=== PATIENT | male | born 1965 | race Caucasian/White ===

== ENCOUNTER 2023-04-08 06:52 | Outpatient (OUT) | payer BC, SELFPAY ==
[2023-04-08 07:19] LABS: Basophils Percent Auto 0.5 % (0.2-2.0); Eosinophils Absolute Auto 0.1 10^3/uL (0.0-0.7); Eosinophils Percent Auto 1.1 % (0.9-7.0); Hematocrit 42.5 % (42.0-54.0); Hemoglobin 13.6 g/dL (14.0-18.0); Immature Granulocytes Abs Auto 0.02 10^3/uL (0.00-0.03); Immature Granulocytes Pct Auto 0.4 % (0.0-0.5); Lymphocytes Absolute Auto 1.4 10^3/uL (1.2-3.8); Lymphocytes Percent Auto 25.4 % (20.5-60.0); Mean Corpuscular Hemoglobin 30.7 pg (25.9-34.0); Mean Corpuscular Volume 95.9 fL (80.0-94.0); Mean Platelet Volume 8.8 fL (9.5-13.5); Monocytes Absolute Auto 0.6 10^3/uL (0.3-0.8); Monocytes Percent Auto 11.4 % (1.7-12.0); Neutrophils Absolute Auto 3.4 10^3/uL (1.4-6.5); Neutrophils Percent Auto 61.2 % (43.0-75.0); Platelet Count 255 10^3/uL (150-450); Red Blood Count 4.43 10^6/uL (4.70-6.10); Red Cell Distribution Width 12.7 % (11.0-15.0); White Blood Count 5.6 10^3/uL (4.0-11.0)
[2023-04-08 07:39] LABS: Estimated Average Glucose 123 mg/dL; Glycohemoglobin A1C 5.9 % (4.5-6.2)
[2023-04-08 07:48] LABS: Alanine Aminotransferase 31 U/L (16-63); Albumin Globulin Ratio 1.1; Albumin Level 3.6 g/dL (3.4-5.0); Alkaline Phosphatase 62 U/L (46-116); Anion Gap 11.5; Aspartate Amino Transferase 11 U/L (15-37); BUN Creatinine Ratio 21.6; Bilirubin Total 0.6 mg/dL (0.2-1.0); Calcium 8.5 mg/dL (8.5-10.1); Carbon Dioxide 30.6 mmol/L (21.0-32.0); Chloride 102 mmol/L (98-107); Chol HDL Ratio 4.1; Cholesterol 212 mg/dL (<=200); Estimated GFR (African America >60 (>=60); Estimated GFR (Non-African Ame >60 (>=60); Free T3 2.11 pg/mL (2.18-3.98); Globulin 3.3 g/dL; Glucose 111 mg/dL (74-106); HDL Cholesterol 52 mg/dL (40-60); Potassium 4.1 mmol/L (3.5-5.1); Sodium 140 mmol/L (136-145); Thyroid Stimulating Hormone 1.459 uIU/mL (0.358-3.740); Total Protein 6.9 g/dL (6.4-8.2); Triglycerides 142 mg/dL (<=150); VLDL CHOLESTEROL 28.4 mg/dL
[2023-04-08 08:13] LABS: Prostate Specific Antigen Scrn 1.05 ng/mL (<=4.00)
--- OUTSIDE RECORDS SUMMARY | 2023-04-21 02:19 | XMS_ITS | CCD ---
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 [place] [id number] [place] CO2 [Moles/Vol] 28 mmol/L Normal 22-30 [facility] Comment on above: Order Comment: Speci men Type: BLOOD SPECIMENOrdering Facility: [facility] Address: [address] [place], [place] [address] Performed By: #### 2 4320-2, ####[facility] [id number] [place] [address] [place] Creatinine [Mass/Vol] 0.98 mg/dL Normal 0.73-1.22 [facility] Comment on above: Order Comment: Agatha graham Type: BLOOD SPECIMENOrdering Facility: [facility] Address: [address] [address] Performed By: #### 2 432-2, ####[facility] LABIA [id number] [place] [address] [place] ESTIMATED GLOMERULAR FILTRATION RATE 89 mL/min/1.73m??? Normal >=60 [facility] Comment on above: Order Comment: Agatha graham Type: BLOOD SPECIMENOrdering Facility: [facility] Address: [address] [place] [address] Result Comment: Jolie mated Glomerular Filtration Rate (eGFR) is calculated using the 2020 CKD-EPI creatinine equation. This equation utilizes serum creatinine, sex, and age as parameters. The creatinine assay has traceable calibration to isotope dilution-mass spectrometry. Refer to KDIGO guidelines for clinical interpretation. In patients with unstable renal function, e.g. those with acute kidney injury, the eGFR may not accurately reflect actual GFR. Performed By: #### 2 4321-2, ####[facility] LABIA [id number] [place] [address] [place] Glucose [Mass/Vol] 113 mg/dL High 74-99 [facility] Comment on above: Order Comment: Agatha graham Type: BLOOD SPECIMENOrdering Facility: [facility] Address: [address] Result Comment: The [place] Diabetes Association (ADA) provides guidance for cutoff values for fasting glucose and random glucose. The ADA defines fasting as no caloric intake for at least 8 hours. Fasting plasma glucose results between 100 to 125 mg/dL indicate increased risk for diabetes (prediabetes). Fasting plasma glucose results greater than or equal to 126 mg/dL meet the criteria for diagnosis of diabetes. In the absence of unequivocal hyperglycemia, results should be confirmed by repeat testing. In a patient with classic symptoms of hyperglycemia or hyperglycemic crisis, random plasma glucose results greater than or equal to 200 mg/dL meet the criteria for diagnosis of diabetes. Reference: Standards of Medical Care in Diabetes 2016, [place] [employer] Association. Diabetes Care. 2016.39(Suppl 1). Performed By: #### 2 4320-06, ####[facility] [id number] [place] [address] [place] Potassium [Moles/Vol] 4.4 mmol/L Normal 3.7-5.1 [facility] Comment on above: Order Comment: Speci men Type: BLOOD SPECIMENOrdering Facility: [facility] Address: [address] [place] [address] Performed By: #### 2 4320-06, ####[facility] [id number] [place] [address] [place] Sodium [Moles/Vol] 138 mmol/L Normal 136-144 [facility] Comment on above: Order Comment: Speci men Type: BLOOD SPECIMENOrdering Facility: [facility] Address: [address] [place], [place] [address] Performed By: #### 2 4320-06, ####[facility] [id number] [place] [address] [place] Urea nitrogen [Mass/Vol] 15 mg/dL Normal 9-24 [facility] Comment on above: Order Comment: Speci men Type: BLOOD SPECIMENOrdering Facility: [facility] Address: [address] [place], [place] [address] Performed By: #### 2 4320-06, ####[facility] [id number] [place] [id number] [place] CNDSon 03-17-2022 CNDS HNO ID: [id number] Author: Oneida Bradley MD Service: Cardiovascular Medicine Author Type: Physician Type: Discharge Summary Filed: 03/25/2022 8:50 AM Note Text: Department of Cardiovascular Medicine Discharge Summary (Template ID [id number]) PATIENT NAME: Clayton Parekh ADMISSION DATE: 03/12/2022 DISCHARGE DATE: 03/17/2022 Attending Physician: No att. providers found Code Status: Not on file Primary Service: Hvi Electrophysiology Admission Diagnosis: Atrial flutter Discharge Diagnosis: Atrial flutter Secondary Diagnoses: Patient Active Hospital Problem List: Atrial flutter (HCC) (03/12/2022) Lymphedema (01/12/2020) Chronic venous insufficiency (01/12/2020) Morbid obesity with BMI of 40.0-44.9, adult (HCC) (01/12/2020) Acquired hypothyroidism (01/12/2020) Persistent atrial fibrillation (HCC) (03/12/2022) Diabetes mellitus type 2, controlled, without complications (HCC) (03/12/2022) Personal history of DVT (deep vein thrombosis) (03/12/2022) Restless legs syndrome (RLS) (03/12/2022) HTN (hypertension) (03/12/2022) Reason for Hospitalization: Atrial flutter Hospital Course: The patient was directly admitted from Dr. Rica Erwin's clinic for new onset atrial flutter with rapid ventricular response. Initial EKG showed atrial flutter with ventricular rates 138 bpm. CXR revealed edema vs inflammation. Patient was currently on a 10-day course of augmentin for cough and suspected pulmonary infection. He was given IV diuretics with improved respiratory symptoms. He remained in atrial flutter while awaiting CLAUS/DCCV. On 03/16/22, he underwent CLAUS which showed no left atrial appendage thrombus. He then underwent successful DCCV with jewish of sinus rhythm with rates 80-100s. He was transitioned from IV to oral lasix for a short course given continued signs of volume overload on exam. He was instructed to get a BMP AND magnesium level locally within 1-2 weeks. A follow up appointment with Dr. Bradley in EP clinic was requested for 4-8 weeks. Assessment: BP 117/80 Pulse 87 Temp 36.9 ?C (98.4 ?F) (Oral) Resp 18 Ht 177.8 cm (5' 10 ) Wt 132 kg (291 lb) SpO2 95% BMI 41.75 kg/m? General Appearance: Well developed, no acute distress HEENT: PERRLA, good dentition Lungs: Unlabored, mild end-expiratory wheezes in bilateral bases Heart: Regular rate and rhythm, no murmurs Vascular: Extremities well perfused, stable BLE lymphedema Abdomen: Soft, non-tender, non-distended, normoactive bowel sounds Skin: Warm and dry, no rash Musculoskeletal: No deformities Neurologic/Psychiatric: Alert and oriented, appropriate affect, no gross focal neurologic deficits Consults: None Major Procedure or Operation: None Other Procedures, Testing AND Radiology: Chest xray 03/12/22: RESULT: - Lines, tubes, and devices: None. - Lungs and pleura: Lungs are hypoinflated with partial atelectasis along the medial bases. Prominence of the lung markings bilaterally could be due to crowded vessels given the low lung volume. Underlying mild interstitial edema or inflammation cannot be entirely excluded. An azygos lobe is compatible with normal variation. There is mild anterior eventration of right hemidiaphragm. No pleural effusion or pneumothorax. - Cardiomediastinal silhouette: Heart is borderline in size. Thoracic aorta is mildly tortuous. - Bones and soft tissues: Degenerative changes are seen in the spine. CLAUS 03/16/22: CONCLUSIONS: - Exam indication: Sustained atrial fibrillation - The left ventricle is normal in size. Left ventricular systolic function is normal. EF = 55 ? 5% (visual est.) - The right ventricle is normal in size. Right ventricular systolic function is normal. - The left atrial cavity is moderately dilated. - No LA thrombus identified. - The visualized aorta is dilated with a maximal dimension of 4.1 cm. - Small nonmobile calcification (0.5 x 0.6 cm) of RCC/NCC commisure likely consistent with degenerative valve disease/calcification. - There is no patent foramen ovale as detected by agitated saline contrast. - Exam was compared with the prior echocardiographic exam performed on 02/05/2020, stable aortic measurements, overall similar findings PROCEDURES: Cardioversion 03/16/22: Summary Findings: The cardioversion was successful. 1. The presenting arrhythmia was atrial flutter. 2. Sinus rhythm and atrial tachycardia with a ventricular rate of 89 beats per minute was observed after the procedure. There were no intraprocedural complications or adverse events. Patient Condition at Discharge: Improved Disposition: Home with Self Care Information Provided to the Patient: Patient given copy of After Visit Summary which included activity instructions, diet instructions, wound care instructions, medication instructions and follow up appointment. ALLERGIES No Known Allergies Discharge Medications: Discharge (more content not included)... Normal [facility] Magnesium SerPl-mCncon 03-17 Magnesium [Mass/Vol] 2.3 mg/dL Normal 1.7-2.3 [facility] Comment on above: Order Comment: Speci men Type: BLOOD SPECIMENOrdering Facility: [facility] Address: [address] [place] [id number] Performed By: #### 2 4321-2, 85095-6 ####[facility] [id number] [address] [place] ANES POSTPROC EVALon 022 ANES POSTPROC EVAL HNO ID: [id number] Author: Zohra Maya MD Service: ? Author Type: Anesthesiologist Type: Anesthesia Postprocedure Evaluation Filed: 03/16/2022 4:48 PM Note Text: POST ANESTHESIA EVALUATION NOTE : 1965 Procedure Summary Date: 03/16/22 Room / Location: [address] Anesthesia Start: 1431 Anesthesia Stop: 1524 Procedure: CARDIOVERSION EXTERNAL ELECTIVE Diagnosis: Persistent atrial fibrillation (HCC) (Persistent atrial fibrillation (HCC) [I48.19]) Surgeons: Oneida Bradley MD Responsible Provider: Zohra Maya MD Anesthesia Type: general ASA Status: 3 Anesthesia Type: general Airway Type: ETT Last Vitals Vitals Value Taken Time BP 115/66 03/16/22 1600 Temp 37 03/16/22 1648 Pulse 83 03/16/22 1600 Resp 16 03/16/22 1600 SpO2 98 % 03/16/22 1600 Post Anesthesia Patient Status Patient Evaluation: bedside. Anticipated Disposition: inpatient floor planned admission. Neurological Status: aware and responsive. Pulmonary Status: breathing comfortably on supplemental oxygen Airway Control: returned to baseline unsupported. Cardiovascular Status: stable. Pain Management: clinically adequate Postoperative Hydration: acceptable. Intraoperative Events: no significant anesthesia events Post Operative Nausea/Vomiting Status: no significant post operative nausea or vomiting Recommendation: continue current plan of care. Anesthesia Observations No Documentation SIGNATURE: Zohra Maya MD PATIENT NAME: Clayton Parekh DATE: March 16, 2022 TIME: 4:48 PM CSN: [id number] Normal [facility] ANES PRE-OPon 03-16-2022 ANES PRE-OP HNO ID: [id number] Author: Zohra Maya MD Service: ? Author Type: Anesthesiologist Type: Anesthesia Preprocedure Evaluation Filed: 03/16/2022 3:25 PM Note Text: ANESTHESIOLOGY DAY OF SURGERY NOTE : 1965 Procedure Information Anesthesia Start Date/Time: 03/16/221430 Procedure: CARDIOVERSION EXTERNAL ELECTIVE Location: [address] EP LAB Surgeons: Oneida Bradley MD Estimated body mass index is 41.9 kg/m? as calculated from the following: Height as of this encounter: 177.8 cm (5' 10 ). Weight as of this encounter: 132.5 kg (292 lb). Most recent hematocrit and potassium results: Hematocrit 43.6 03/16/2022 Potassium 4.3 03/16/2022 Relevant Problems CARDIO (+) Atrial flutter (HCC) (+) Chronic venous insufficiency (+) HTN (hypertension) (+) Persistent atrial fibrillation (HCC) ENDO (+) Acquired hypothyroidism (+) Diabetes mellitus type 2, controlled, without complications (HCC) NEURO-PSYCH (+) Personal history of DVT (deep vein thrombosis) I - PHYSICAL EVALUATION AIRWAY Patient intubated: No. Tracheostomy tube not present Mallampati: III. TM distance: >3 FB. Neck ROM: full ROM without neurological symptoms. Mouth opening: adequate. Short neck: no. Thick neck: no Fink present: no DENTAL Dental findings: teeth intact. II - ANESTHESIA PLAN ASA Score: 3 Anesthetic Plan: general Airway type: ETT NPO Status: adequate Beta Irlanda Monitoring Plan Monitoring plan: standard ASA. Post Procedure Analgesic Plan Postoperative analgesic plan: multimodal analgesia and per surgical service. Informed Consent Anesthetic risks, benefits, alternatives, personnel and consent discussed: yes. Patient / Responsible Alliance Party agrees to proceed: yes Patient / Surrogate agrees to blood products: Yes Potential Anesthesia issues that may suggest increased risk of complications or contraindication to planned procedure: none. Vitals Value Taken Time BP 114/64 03/16/22 1404 Pulse 133 03/16/22 1404 Resp 16 03/16/22 1404 Temp SpO2 95 % 03/16/22 1404 Facility-Administered Medications as of 03/16/2022 Medication Dose Route Frequency - [COMPLETED] furosemide 20 mg injection (LASIX) 20 mg INTRAVENOUS ONCE - albuterol 2.5 mg /3 mL (0.083 %) 2.5 mg (PROVENTIL) 2.5 mg INHALATION TID - [COMPLETED] NaCl 0.9% iv infusion INTRAVENOUS X (OR/PROCEDURE) CONTINUOUS - [COMPLETED] furosemide 20 mg injection (LASIX) 20 mg INTRAVENOUS ONCE - [COMPLETED] furosemide 20 mg injection (LASIX) 20 mg INTRAVENOUS ONCE - acetaminophen 650 mg tab(s) (TYLENOL) 650 mg ORAL q 4 H PRN - docusate sodium 100 mg cap(s) (COLACE) 100 mg ORAL BID PRN - NaCl 0.9% iv flush bag 20 mL INTRAVENOUS PRN - sodium chloride 0.9 % (flush) 3-5 mL (BD POSIFLUSH) 3-5 mL INTRAVENOUS q 12 H - dilTIAZem CD 300 mg cap(s) (CARDIZEM CD, CARTIA XT) 300 mg ORAL DAILY - [] sodium chloride 0.9 % (flush) 2-10 mL (BD POSIFLUSH) 2-10 mL INTRAVENOUS ONCE - apixaban 5 mg tab(s) (ELIQUIS) 5 mg ORAL BID - amoxicillin-clavulanic acid 875 mg tab(s) (AUGMENTIN) 875 mg ORAL BID - levothyroxine 100 mcg tab(s) (SYNTHROID) 100 mcg ORAL DAILY - ascorbic acid (vitamin C) 1,000 mg tab(s) (VITAMIN C) 1,000 mg ORAL DAILY - pramipexole 1 mg tab(s) (MIRAPEX) 1 mg ORAL DAILY - benzonatate 100 mg cap(s) (TESSALON PERLE) 100 mg ORAL TID Outpatient Medications as of 03/16/2022 Medication Sig - cephALEXin (KEFLEX) 500 mg capsule Take 500 mg by mouth four times daily. - amoxicillin-clavulanic acid (AUGMENTIN) 875-125 mg per tablet Take 1 tablet by mouth twice daily. - levothyroxine (SYNTHROID) 100 mcg tablet Take 100 mcg by mouth once daily. - pramipexole (MIRAPEX) 1 mg tablet Take 1 mg by mouth daily at bedtime. - MAGNESIUM ORAL Take 500 mg by mouth. - perflutren lipid microspheres (DEFINITY) 1.1 mg/mL injection (to be provided with echo procedure) Inject 1.3 mL intravenously as needed for up to 1 dose. Instructions Administration Instructions: If no IV access, insert saline lock prior to administering contrast. Discontinue saline lock post exam. If patient has central line or IVAD, may access for administration according to line specific nursing protocol. Once exam is complete, flush line and de-access per line specific nursing protocol. Diluted IV Bolus: Dilute 1.3 ml of Definity with 8.7 ml of preservative-free saline I have interviewed and examined the patient. I have reviewed the medical record and/or the pre-anesthesia evaluation, pertinent labs, and test results. This contains updated information obtained within 48 hours of Surgery/Procedure. SIGNATURE: Zohra Maya MD PATIENT NAME: Clayton Parekh DATE: March 16, 2022 TIME: 3:25 PM CSN: [id number] Normal [facility] Basic metabolic 2000 panelon 03-16-2022 Anion gap [Moles/Vol] 13 mmol/L Normal 9-18 [facility] Comment on above: Order Comment: Speci men Type: BLOOD SPECIMENOrdering Facility: [facility] Address: [address] [place], [place] [phone] Performed By: #### 2 432-, ####[facility]CL[facility] [id number] [place] [address] [place] Calcium [Mass/Vol] 9.5 mg/dL Normal 8.5-10.2 [facility] Comment on above: Order Comment: Speci men Type: BLOOD SPECIMENOrdering Facility: [facility] Address: [address] [place], [place] [phone] Performed By: #### 2 4321-, ####[facility]CL[facility] [id number] [place] [address] [place] Chloride [Moles/Vol] 100 mmol/L Normal 97-105 [facility] Comment on above: Order Comment: Speci men Type: BLOOD SPECIMENOrdering Facility: [facility] Address: [address] [place] [address] Performed By: #### 2 4321-2, ####[facility] LABIA [id number] [place] [address] [place] CO2 [Moles/Vol] 24 mmol/L Normal 22-30 [facility] Comment on above: Order Comment: Speci men Type: BLOOD SPECIMENOrdering Facility: [facility] Address: [address] [place] [address] Performed By: #### 2 4321-2, ####[facility] LABIA [id number] [address] OF [facility] Creatinine [Mass/Vol] 0.96 mg/dL Normal 0.73-1.22 [facility] Comment on above: Order Comment: Speci men Type: BLOOD SPECIMENOrdering Facility: [facility] Address: [address] [place] [address] Performed By: #### 2 4321-2, ####[facility] LABIA [id number] [place] [address] [place] [facility] ESTIMATED GLOMERULAR FILTRATION RATE 92 mL/min/1.73m??? Normal >=60 [facility] Comment on above: Order Comment: Speci men Type: BLOOD SPECIMENOrdering Facility: [facility] Address: [address] [place] [address] Result Comment: Jolie mated Glomerular Filtration Rate (eGFR) is calculated using the 2020 CKD-EPI creatinine equation. This equation utilizes serum creatinine, sex, and age as parameters. The creatinine assay has traceable calibration to isotope dilution-mass spectrometry. Refer to KDIGO guidelines for clinical interpretation. In patients with unstable renal function, e.g. those with acute kidney injury, the eGFR may not accurately reflect actual GFR. Performed By: #### 2 4320-06, ####[facility]CL[facility] [id number] [address] [address] [place] Glucose [Mass/Vol] 109 mg/dL High 74-99 [facility] Comment on above: Order Comment: Agatha men Type: BLOOD SPECIMENOrdering Facility: [facility] Address: [address] [place] [id number] Result Comment: The [place] Diabetes Association (ADA) provides guidance for cutoff values for fasting glucose and random glucose. The ADA defines fasting as no caloric intake for at least 8 hours. Fasting plasma glucose results between 100 to 125 mg/dL indicate increased risk for diabetes (prediabetes). Fasting plasma glucose results greater than or equal to 126 mg/dL meet the criteria for diagnosis of diabetes. In the absence of unequivocal hyperglycemia, results should be confirmed by repeat testing. In a patient with classic symptoms of hyperglycemia or hyperglycemic crisis, random plasma glucose results greater than or equal to 200 mg/dL meet the criteria for diagnosis of diabetes. Reference: Standards of Medical Care in Diabetes 2016, [place] [employer]. Diabetes Care. 2016.39(Suppl 1). Performed By: #### 2 4320-06, ####[facility] LABIA [id number] [place] [address] [place] Potassium [Moles/Vol] 4.3 mmol/L Normal 3.7-5.1 [facility] Comment on above: Order Comment: Agatha graham Type: BLOOD SPECIMENOrdering Facility: [facility] Address: [address] [place] [address] Performed By: #### 2 4320-06, ####[facility] LABIA [id number] [address] [address] [place] Sodium [Moles/Vol] 137 mmol/L Normal 136-144 [facility] Comment on above: Order Comment: Agatha graham Type: BLOOD SPECIMENOrdering Facility: [facility] Address: [address] Performed By: #### 2 4321-2, 66414-5 ####[facility] LABIA [id number] [place] [address] [place] Urea nitrogen [Mass/Vol] 14 mg/dL Normal 9-24 [facility] Comment on above: Order Comment: Speci men Type: BLOOD SPECIMENOrdering Facility: [facility] Address: [address] [place], [place] [address] Performed By: #### 2 4321-2, ####[facility] LABIA [id number] [place] [address] [place] CBC panel Auto (Bld)on 03-16 Erythrocyte distribution wid th (RBC) [Ratio] 12.8 % Normal 11.5-15.0 [facility] Comment on above: Order Comment: Speci men Type: BLOOD SPECIMENOrdering Facility: [facility] Address: [address] Performed By: #### 9 4500-6 #### [facility] CLIA [id number] [address] [place] [address] [place] Hematocrit (Bld) [Volume fraction] 43.6 % Normal 3 9.0-51.0 [facility] Comment on above: Order Comment: Speci men Type: BLOOD SPECIMENOrdering Facility: [facility] Address: [address] Performed By: #### 9 4500-6 #### [facility] CLIA [id number] [address] [place] [address] [place] Hemoglobin (Bld) [Mass/Vol] 14.5 g/dL Normal 13.0-17. 0 [facility] Comment on above: Order Comment: Speci men Type: BLOOD SPECIMENOrdering Facility: [facility] Address: [address] [place], [place] [address] Performed By: #### 9 4500-6 #### [facility] CLIA [id number] [address] MCH (RBC) [Entitic mass] 29.4 pg Normal 26.0-34.0 [facility] Comment on above: Order Comment: Speci men Type: BLOOD SPECIMENOrdering Facility: [facility] Address: [address] [place] [address] Performed By: #### 9 4500-6 #### [facility] CLIA [id number] [address] [place] MCHC (RBC) [Mass/Vol] 33.3 g/dL Normal 30.5-36.0 [facility] Comment on above: Order Comment: Speci men Type: BLOOD SPECIMENOrdering Facility: [facility] Address: [address] [place], [place] [address] Performed By: #### 9 4500-6 #### [facility] CLIA [id number] [address] [place] [address] [place] MCV (RBC) [Entitic vol] 88.4 fL Normal 80.0-100.0 [facility] Comment on above: Order Comment: Speci men Type: BLOOD SPECIMENOrdering Facility: [facility] Address: [address] [place], [place] [phone] Performed By: #### 9 4500-6 #### [facility] CLIA [id number] [address] [place] Nucleated RBC (Bld) [#/Vol] 10*3/uL Normal <0.01 [facility] Comment on above: Order Comment: Speci men Type: BLOOD SPECIMENOrdering Facility: [facility] Address: [address] [place] [address] Performed By: #### 9 4500-6 #### [facility] CLIA [id number] [address] [place] [address] [place] Platelet mean volume (Bld) [ Entitic vol] 9.2 fL Normal 9.0-12.7 [facility] Comment on above: Order Comment: Speci men Type: BLOOD SPECIMENOrdering Facility: [facility] Address: [address] [place], [place] [address] Performed By: #### 9 4500-6 #### [facility] CLIA [id number] [address] [place] [address] [place] Platelets (Bld) [#/Vol] 257 10*3/uL Normal 150-400 [facility] Comment on above: Order Comment: Speci men Type: BLOOD SPECIMENOrdering Facility: [facility] Address: [address] [place], [place] [address] Performed By: #### 9 4500-6 #### [facility] CLIA [id number] [address] [place] [address] [place] RBC (Bld) [#/Vol] 4.93 10*6/uL Normal 4.20-6.00 [facility] Comment on above: Order Comment: Speci men Type: BLOOD SPECIMENOrdering Facility: [facility] Address: [address] [place], [place] [address] Performed By: #### 9 4500-6 #### [facility] CLIA [id number] [address] [place] [address] [place] WBC (Bld) [#/Vol] 6.13 10*3/uL Normal 3.70-11.00 [facility] Comment on above: Order Comment: Speci men Type: BLOOD SPECIMENOrdering Facility: [facility] Address: [address] [place], [place] [address] Performed By: #### 9 4500-6 #### [facility] CLIA [id number] [address] [place] [address] [place] CNOVon 03-16-2022 CNOV Office Visit (CAFLMN ) CLAYTON PAREKH ([id number]) 1965 M Date Time Provider Department 03/16/22 9:00 AM IP TRANSESOPHAGEAL ECHO CAFN During your visit today, we recorded the following information about you: Allergies As of Date: 03/16/2022 (No Known Allergies) Date Reviewed: 03/16/2022 Reviewed by: Allison Landaverde RN - Fully Assessed Primary Visit Diagnosis:Persistent atrial fibrillation (HCC) [I48.19] Prescriptions as of 03/17/2022 - furosemide (LASIX) 20 mg tablet Take 1 tablet by mouth once daily for 14 days. - apixaban (ELIQUIS) 5 mg tab(s) Take 5 mg by mouth twice daily. - ascorbic acid, vitamin C, (VITAMIN C) 500 mg tablet Take 1,000 mg by mouth once daily. - dilTIAZem CD (CARDIZEM CD, CARTIA XT) 300 mg 24 hr capsule Take 300 mg by mouth once daily. - amoxicillin-clavulanic acid (AUGMENTIN) 875-125 mg per tablet Take 1 tablet by mouth twice daily. - levothyroxine (SYNTHROID) 100 mcg tablet Take 100 mcg by mouth once daily. - pramipexole (MIRAPEX) 1 mg tablet Take 1 mg by mouth daily at bedtime. - perflutren lipid microspheres (DEFINITY) 1.1 mg/mL injection (to be provided with echo procedure) Inject 1.3 mL intravenously as needed for up to 1 dose. Instructions Administration Instructions: If no IV access, insert saline lock prior to administering contrast. Discontinue saline lock post exam. If patient has central line or IVAD, may access for administration according to line specific nursing protocol. Once exam is complete, flush line and de-access per line specific nursing protocol. Diluted IV Bolus: Dilute 1.3 ml of Definity with 8.7 ml of preservative-free saline Facility-Administered Medications as of 03/17/2022 - albuterol 2.5 mg /3 mL (0.083 %) 2.5 mg (PROVENTIL) - acetaminophen 650 mg tab(s) (TYLENOL) - docusate sodium 100 mg cap(s) (COLACE) - NaCl 0.9% iv flush bag - sodium chloride 0.9 % (flush) 3-5 mL (BD POSIFLUSH) - dilTIAZem CD 300 mg cap(s) (CARDIZEM CD, CARTIA XT) - apixaban 5 mg tab(s) (ELIQUIS) - amoxicillin-clavulanic acid 875 mg tab(s) (AUGMENTIN) - levothyroxine 100 mcg tab(s) (SYNTHROID) - ascorbic acid (vitamin C) 1,000 mg tab(s) (VITAMIN C) - pramipexole 1 mg tab(s) (MIRAPEX) - benzonatate 100 mg cap(s) (TESSALON PERLE) Problem List As Of Date 03/16/2022 Noted Resolved Lymphedema [I89.0] 01/12/2020 Chronic venous insufficiency [I87.2] 01/12/2020 Dependent edema [R60.9] 01/12/2020 Weight gain [R63.5] 01/12/2020 Morbid obesity with BMI of 40.0-44.9, adult (HC*01/12/2020 Acquired hypothyroidism [E03.9] 01/12/2020 Persistent atrial fibrillation (HCC) [I48.19] 03/12/2022 Diabetes mellitus type 2, controlled, without c*03/12/2022 Personal history of DVT (deep vein thrombosis) *03/12/2022 Restless legs syndrome (RLS) [G25.81] 03/12/2022 Atrial flutter (HCC) [I48.92] 03/12/2022 HTN (hypertension) [I10] 03/12/2022 Encounter Status:Closed by ELLY MEHTA on 03/17/22 Normal [facility] [id number] 03-16-2022 ECG01 Ventricular Rate : 8 5 BPM Atrial Rate : 85 BPM P-R Interval : 174 ms QRS Duration : 94 ms Q-T Interval : 384 ms QTC Calculation(Bazett) : 456 ms Calculated P [place] : 53 degrees Calculated R [place] : -44 degrees Calculated [place] : 78 degrees SINUS RHYTHM WITH MARKED SINUS ARRHYTHMIA WITH PREMATURE ATRIAL COMPLEXES POSSIBLE LEFT ATRIAL ENLARGEMENT LEFT AXIS DEVIATION ABNORMAL ECG Confirmed by STEPHENIE AZUL MD ([id number]) on 04/02/2022 9:19:10 PM NAME : CLAYTON PAREKH PID : [id number] : 1965 Gender : Male Race : ORD : Procedure Date : Mar 16 2022 16:30:18 Edit Date : Apr 02 2022 21:19:10 Diagnosis: SINUS RHYTHM WITH MARKED SINUS ARRHYTHMIA WITH PREMATURE ATRIAL COMPLEXES POSSIBLE LEFT ATRIAL ENLARGEMENT LEFT AXIS DEVIATION ABNORMAL ECG Confirmed by STEPHENIE AZUL MD ([id number]) on 04/02/2022 9:19:10 PM Test Reason : Location : 473 : J73NS 21 Overread By : STEPHENIE AZUL MD Edited By : STEPHENIE AZUL MD Referred By : , Acquired by : [id number], Normal [facility] C leveland ECG01 Ventricular Rate : 8 4 BPM Atrial Rate : 84 BPM P-R Interval : 176 ms QRS Duration : 100 ms Q-T Interval : 392 ms QTC Calculation(Bazett) : 463 ms Calculated P [place] : 57 degrees Calculated R [place] : -49 degrees Calculated T [place] : 77 degrees SINUS RHYTHM WITH PREMATURE ATRIAL COMPLEXES LEFT ANTERIOR FASCICULAR BLOCK ABNORMAL ECG Confirmed by STEPHENIE AZUL MD ([id number]) on 04/02/2022 9:18:02 PM NAME : CLAYTON PAREKH PID : [id number] : 1965 Gender : Male Race : ORD : Procedure Date : Mar 16 2022 15:46:42 Edit Date : Apr 02 2022 21:18:02 Diagnosis: SINUS RHYTHM WITH PREMATURE ATRIAL COMPLEXES LEFT ANTERIOR FASCICULAR BLOCK ABNORMAL ECG Confirmed by STEPHENIE AZUL MD ([id number]) on 04/02/2022 9:18:02 PM Test Reason : Location : 23 : J21NS J21NS Overread By : STEPHENIE AZUL MD Edited By : STEPHENIE AZUL MD Referred By : , Acquired by : [id number], Normal [facility] C leveland ECG01 Ventricular Rate : 1 37 BPM Atrial Rate : 274 BPM QRS Duration : 88 ms Q-T Interval : 282 ms QTC Calculation(Bazett) : 425 ms Calculated P [place] : -95 degrees Calculated R [place] : -59 degrees Calculated T [place] : 68 degrees ATRIAL FLUTTER WITH 2:1 A-V CONDUCTION LEFT ANTERIOR FASCICULAR BLOCK ST & LATERAL T WAVE ABNORMALITY ABNORMAL ECG Confirmed by STEPHENIE AZUL MD ([id number]) on 04/02/2022 9:16:53 PM NAME : CLAYTON PAREKH PID : [id number] : 1965 Gender : Male Race : ORD : Procedure Date : Mar 16 2022 11:32:32 Edit Date : Apr 02 2022 21:16:53 Diagnosis: ATRIAL FLUTTER WITH 2:1 A-V CONDUCTION LEFT ANTERIOR FASCICULAR BLOCK ST & LATERAL T WAVE ABNORMALITY ABNORMAL ECG Confirmed by STEPHENIE AZUL MD ([id number]) on 04/02/2022 9:16:53 PM Test Reason : Location : 473 : J73NS 21 Overread By : STEPHENIE AZUL MD Edited By : STEPHENIE AZUL MD Referred By : , Acquired by : [id number], Normal [facility] E[facility] TRANSESOPHAGEALon 03-16 ECHO TRANSESOPHAGEAL Echocardiography Report: Transesophageal Echo [facility] J1-5 Date of service: 03/16/2022 2:03:56 PM [facility]ICE [facility]ER Ordering physician: ERIKA MORRISON Indication: Sustained atrial fibrillation Technologist: fellow Fellow: Jewel Barragan MD Interpreting physician: Minoo Chapa MD PATIENT: Name: MR. CLAYTON PAREKH : 1965 Age: 56 years Gender: M Pre Post Heart rate 131 bpm 120 bpm Blood pressure 110/80 mmHg 100/70 mmHg Color Doppler was utilized to interrogate the cardiac valves assessed and spectral Doppler was utilized to determine the flow velocities and pressure gradients reported in this exam. Exam performed on intubated patient under general [id number] min. Patient tolerated procedure well; no complications. (Stop Time: 2:57) No specimens collected. No blood loss. The interpreting physician was present for and actively participated in the CLAUS procedure. MEASUREMENTS: Value Normal Max aortic dimension 4.1 cm Ao < 3.8 Ejection Fraction 55 % (visual est.) EF > 52 FINDINGS: LEFT VENTRICLE The left ventricle is normal in size. Left ventricular systolic function is normal. Wall Motion: All scored segments are normal. RIGHT VENTRICLE The right ventricle is normal in size. Right ventricular systolic function is normal. LEFT ATRIUM The left atrial cavity is moderately dilated. There is continuous spontaneous echo contrast noted in the left atrium. The left atrial appendage is not multilobed. The peak emptying velocity from the left atrial appendage is 40.0 cm/s. There is no left atrial appendage thrombus. Pulmonary Veins: The pulmonary venous pattern showed blunted systolic flow. MITRAL VALVE [place] mitral valve. There is no mitral stenosis. There is mild (1+) mitral valve regurgitation. 3D echocardiographic multi-planar reconstruction of the mitral valve was performed to assess anatomy and function. TRICUSPID VALVE [place] tricuspid valve. There is trace tricuspid valve regurgitation. AORTIC VALVE There is no aortic valve regurgitation. Tricuspid aortic valve. PULMONIC VALVE There is trace pulmonic valve regurgitation. AORTA The visualized aorta is dilated. Measurements - Sinus: 4.1 cm. Sinotubular junction 3.2 cm. Mid ascending aorta 4.0 cm. There is a mild atheroma in the mid arch. INTERATRIAL SEPTUM There is no patent foramen ovale as detected by agitated saline contrast. CONCLUSIONS: - Exam indication: Sustained atrial fibrillation - The left ventricle is normal in size. Left ventricular systolic function is normal. EF = 55 5% (visual est.) - The right ventricle is normal in size. Right ventricular systolic function is normal. - The left atrial cavity is moderately dilated. - No LA thrombus identified. - The visualized aorta is dilated with a maximal dimension of 4.1 cm. - Small nonmobile calcification (0.5 x 0.6 cm) of RCC/NCC commisure likely consistent with degenerative valve disease/calcification. - There is no patent foramen ovale as detected by agitated saline contrast. - Exam was compared with the prior echocardiographic exam performed on 02/05/2020, stable aortic measurements, overall similar findings * * * Final * * * [employer] : [id number] Normal [facility] Magnesium SerPl-mCncon 03-16 Magnesium [Mass/Vol] 2.3 mg/dL Normal 1.7-2.3 [facility] Comment on above: Order Comment: Speci men Type: BLOOD SPECIMENOrdering Facility: [facility] Address: [address] [place], [place] [id number] Performed By: #### 2 4321-2, 07148-4 ####[facility] [id number] [place] [address] [place] PT EDon 03-16-2022 PT ED HNO ID: [id number] Author: Esau Aguero RN Service: Nursing Author Type: Registered Nurse Type: Patient Education Filed: 03/16/2022 12:34 PM Note Text: THE FOLLOWING WAS EVALUATED Motivation To Learn: Eager Family/Significant Other Support: None - Unavailable/disinterested Cognitive Ability: Alert and oriented Patient Learns Best By: Individual Instruction The Following Influencing Factors Were Barriers To This Education Session: None The Following Physical Limitations Were Barriers To This Education Session: None Instruction Provided To: Patient Procedure: Cardioversion The following was reviewed for this procedure: Patient ID verified Procedure verified Physician verified Directions to facility Information regarding sedation level during procedure Overnight stay procedure Check out time Pre procedure blood work Family waiting area Physician contact with family after procedure Post Procedure Expectations Patient Evaluation: Verbalizes understanding Follow Up Plan: Follow up as needed Supplemental Material Given: None Instructed By Esau Aguero RN. In Department of BEM183. Normal [facility] C leveland Basic metabolic 2000 panelon 03-15-2022 Anion gap [Moles/Vol] 11 mmol/L Normal 9-18 [facility] Comment on above: Order Comment: Speci men Type: BLOOD SPECIMENOrdering Facility: [facility] Address: [address] [place], [place] [phone] Performed By: #### 1 9123-9, 47806-2 ####[facility] [id number] [place] [address] [place] Calcium [Mass/Vol] 9.6 mg/dL Normal 8.5-10.2 [facility] Comment on above: Order Comment: Speci men Type: BLOOD SPECIMENOrdering Facility: [facility] Address: [address] Performed By: #### 1 9123-9, 37020-8 ####[facility] [id number] [place] [address] [place] Chloride [Moles/Vol] 102 mmol/L Normal 97-105 [facility] Comment on above: Order Comment: Speci men Type: BLOOD SPECIMENOrdering Facility: [facility] Address: [address] [address] Performed By: #### 1 9123-9, 52928-8 ####[facility] [id number] [place] [address] [place] CO2 [Moles/Vol] 26 mmol/L Normal 22-30 [facility] Comment on above: Order Comment: Speci men Type: BLOOD SPECIMENOrdering Facility: [facility] Address: [address] [place] [address] Performed By: #### 1 9123-9, 69830-0 ####[facility] [id number] [place] [address] [place] Creatinine [Mass/Vol] 0.92 mg/dL Normal 0.73-1.22 [facility] Comment on above: Order Comment: Speci men Type: BLOOD SPECIMENOrdering Facility: [facility] Address: [address] [place], [place] [address] Performed By: #### 1 9123-9, 95300-5 ####[facility] [id number] [place] [address] [place] ESTIMATED GLOMERULAR FILTRATION RATE 96 mL/min/1.73m??? Normal >=60 [facility] Comment on above: Order Comment: Speci men Type: BLOOD SPECIMENOrdering Facility: [facility] Address: [address] [place], [place] [address] Result Comment: Jolie mated Glomerular Filtration Rate (eGFR) is calculated using the 2020 CKD-EPI creatinine equation. This equation utilizes serum creatinine, sex, and age as parameters. The creatinine assay has traceable calibration to isotope dilution-mass spectrometry. Refer to KDIGO guidelines for clinical interpretation. In patients with unstable renal function, e.g. those with acute kidney injury, the eGFR may not accurately reflect actual GFR. Performed By: #### 1 9123-9, 57389-7 ####[facility] [id number] [place] [address] [place] Glucose [Mass/Vol] 118 mg/dL High 74-99 [facility] Comment on above: Order Comment: Speci men Type: BLOOD SPECIMENOrdering Facility: [facility] Address: [address] [address] Result Comment: The [place] Diabetes Association (ADA) provides guidance for cutoff values for fasting glucose and random glucose. The ADA defines fasting as no caloric intake for at least 8 hours. Fasting plasma glucose results between 100 to 125 mg/dL indicate increased risk for diabetes (prediabetes). Fasting plasma glucose results greater than or equal to 126 mg/dL meet the criteria for diagnosis of diabetes. In the absence of unequivocal hyperglycemia, results should be confirmed by repeat testing. In a patient with classic symptoms of hyperglycemia or hyperglycemic crisis, random plasma glucose results greater than or equal to 200 mg/dL meet the criteria for diagnosis of diabetes. Reference: Standards of Medical Care in Diabetes 2016, [place] Diabetes Association. Diabetes Care. 2016.39(Suppl 1). Performed By: #### 1 9123-9, 94596-1 ####[facility] [id number] [place] [address] [place] Potassium [Moles/Vol] 4.9 mmol/L Normal 3.7-5.1 [facility] Comment on above: Order Comment: Agatha graham Type: BLOOD SPECIMENOrdering Facility: [facility] Address: [address] [id number] Performed By: #### 1 9123-9, 30054-1 ####[facility] [id number] [place] [address] [place] Sodium [Moles/Vol] 139 mmol/L Normal 136-144 [facility] Comment on above: Order Comment: Speci men Type: BLOOD SPECIMENOrdering Facility: [facility] Address: [address] [place] [address] Performed By: #### 1 9123-9, 87240-1 ####[facility] [id number] [place] [address] [place] Urea nitrogen [Mass/Vol] 14 mg/dL Normal 9-24 [facility] Comment on above: Order Comment: Speci men Type: BLOOD SPECIMENOrdering Facility: [facility] Address: [address] [place] [address] Performed By: #### 1 9123-9, 79176-9 ####[facility] [id number] [place] [address] [place] Magnesium SerPl-mCncon 03-15 Magnesium [Mass/Vol] 2.2 mg/dL Normal 1.7-2.3 [facility] Comment on above: Order Comment: Speci men Type: BLOOD SPECIMENOrdering Facility: [facility] Address: [address] [place], [place] [address] Performed By: #### 1 9123-9, 24668-9 ####[facility]CL[facility] [id number] [place] [address] [place] Basic metabolic 2000 panelon 03-14-2022 Anion gap [Moles/Vol] 13 mmol/L Normal 9-18 [facility] Comment on above: Order Comment: Speci men Type: BLOOD SPECIMENOrdering Facility: [facility] Address: [address] [place] [address] Performed By: #### 2 4321-2, 74162-0 ####[facility]CL[facility] [id number] [place] [address] [place] Calcium [Mass/Vol] 9.3 mg/dL Normal 8.5-10.2 [facility] Comment on above: Order Comment: Speci men Type: BLOOD SPECIMENOrdering Facility: [facility] Address: [address] [place], [place] [address] Performed By: #### 2 2, ####[facility]CLIA [id number] [place] [address] [place] Chloride [Moles/Vol] 103 mmol/L Normal 97-105 [facility] Comment on above: Order Comment: Speci men Type: BLOOD SPECIMENOrdering Facility: [facility] Address: [address] [place], [place] [address] Performed By: #### 2 2, ####[facility] [id number] [place] [address] [place] CO2 [Moles/Vol] 24 mmol/L Normal 22-30 [facility] Comment on above: Order Comment: Speci men Type: BLOOD SPECIMENOrdering Facility: [facility] Address: [address] [place], [place] [address] Performed By: #### 2 4320-06, ####[facility] [id number] [place] [address] [place] Creatinine [Mass/Vol] 0.95 mg/dL Normal 0.73-1.22 [facility] Comment on above: Order Comment: Speci men Type: BLOOD SPECIMENOrdering Facility: [facility] Address: [address] [place], [place] [address] Performed By: #### 2 2, ####[facility] [id number] [place] [address] [place] ESTIMATED GLOMERULAR FILTRATION RATE 93 mL/min/1.73m??? Normal >=60 [facility] Comment on above: Order Comment: Speci men Type: BLOOD SPECIMENOrdering Facility: [facility] Address: [address] [place] [address] Result Comment: Jolie mated Glomerular Filtration Rate (eGFR) is calculated using the 2020 CKD-EPI creatinine equation. This equation utilizes serum creatinine, sex, and age as parameters. The creatinine assay has traceable calibration to isotope dilution-mass spectrometry. Refer to KDIGO guidelines for clinical interpretation. In patients with unstable renal function, e.g. those with acute kidney injury, the eGFR may not accurately reflect actual GFR. Performed By: #### 2 432-2, ####[facility] [id number] [place] [id number] [place] Glucose [Mass/Vol] 118 mg/dL High 74-99 [facility] Comment on above: Order Comment: Agatha graham Type: BLOOD SPECIMENOrdering Facility: [facility] Address: [address] [place] [address] Result Comment: The [place] Diabetes Association (ADA) provides guidance for cutoff values for fasting glucose and random glucose. The ADA defines fasting as no caloric intake for at least 8 hours. Fasting plasma glucose results between 100 to 125 mg/dL indicate increased risk for diabetes (prediabetes). Fasting plasma glucose results greater than or equal to 126 mg/dL meet the criteria for diagnosis of diabetes. In the absence of unequivocal hyperglycemia, results should be confirmed by repeat testing. In a patient with classic symptoms of hyperglycemia or hyperglycemic crisis, random plasma glucose results greater than or equal to 200 mg/dL meet the criteria for diagnosis of diabetes. Reference: Standards of Medical Care in Diabetes 2016, [place] Diabetes Association. Diabetes Care. 2016.39(Suppl 1). Performed By: #### 2 4321-2, ####[facility] [id number] [place] [id number] [place] Potassium [Moles/Vol] 4.3 mmol/L Normal 3.7-5.1 [facility] Comment on above: Order Comment: Agatha graham Type: BLOOD SPECIMENOrdering Facility: [facility] Address: [address] [id number] Performed By: #### 2 4321-2, ####[facility]CL[facility] [id number] [place] [id number] [place] Sodium [Moles/Vol] 140 mmol/L Normal 136-144 [facility] Comment on above: Order Comment: Speci men Type: BLOOD SPECIMENOrdering Facility: [facility] Address: [address] [place], [place] [address] Performed By: #### 2 432-2, ####[facility]CL[facility] [id number] [place] [address] [place] Urea nitrogen [Mass/Vol] 16 mg/dL Normal 9-24 [facility] Comment on above: Order Comment: Speci men Type: BLOOD SPECIMENOrdering Facility: [facility] Address: [address] [place], [place] [address] Performed By: #### 2 4320-2, ####[facility] [id number] [place] [address] [place] Magnesium SerPl-mCncon 03-14 Magnesium [Mass/Vol] 2.4 mg/dL High 1.7-2.3 [facility] Comment on above: Order Comment: Speci men Type: BLOOD SPECIMENOrdering Facility: [facility] Address: [address] [place], [place] [address] Performed By: #### 2 4320-2, ####[facility]CLIA [id number] [place] [id number] [place] Basic metabolic 2000 panelon 03-13-2022 Anion gap [Moles/Vol] 10 mmol/L Normal 9-18 [facility] Comment on above: Order Comment: Speci men Type: BLOOD SPECIMENOrdering Facility: [facility] Address: [address] [place], [place] [address] Performed By: #### 2 4321-2, , 3015-3 ####[facility] [id number] [place] [address] [place] Calcium [Mass/Vol] 9.2 mg/dL Normal 8.5-10.2 [facility] Comment on above: Order Comment: Speci men Type: BLOOD SPECIMENOrdering Facility: [facility] Address: [address] [place], [place] [address] Performed By: #### 2 4321-2, , 3 ####[facility] [id number] [place] [address] [place] Chloride [Moles/Vol] 103 mmol/L Normal 97-105 [facility] Comment on above: Order Comment: Speci men Type: BLOOD SPECIMENOrdering Facility: [facility] Address: [address] [place] [address] Performed By: #### 2 4321-2, , 3 ####[facility] [id number] [place] [address] [place] CO2 [Moles/Vol] 26 mmol/L Normal 22-30 [facility] Comment on above: Order Comment: Speci men Type: BLOOD SPECIMENOrdering Facility: [facility] Address: [address] [place], [place] [address] Performed By: #### 2 4321-2, , 3 ####[facility] [id number] [place] [id number] [place] Creatinine [Mass/Vol] 0.89 mg/dL Normal 0.73-1.22 [facility] Comment on above: Order Comment: Speci men Type: BLOOD SPECIMENOrdering Facility: [facility] Address: [address] [place], [place] [address] Performed By: #### 2 4321-2, , 3015-3 ####[facility] [id number] [place] [address] [place] ESTIMATED GLOMERULAR FILTRATION RATE 99 mL/min/1.73m??? Normal >=60 [facility] Comment on above: Order Comment: Agatha graham Type: BLOOD SPECIMENOrdering Facility: [facility] Address: [address] [address] Result Comment: Jolie mated Glomerular Filtration Rate (eGFR) is calculated using the 2020 CKD-EPI creatinine equation. This equation utilizes serum creatinine, sex, and age as parameters. The creatinine assay has traceable calibration to isotope dilution-mass spectrometry. Refer to KDIGO guidelines for clinical interpretation. In patients with unstable renal function, e.g. those with acute kidney injury, the eGFR may not accurately reflect actual GFR. Performed By: #### 2 4321-2, 09647-8, 3015-3 ####[facility] [id number] [place] [address] [place] Glucose [Mass/Vol] 106 mg/dL High 74-99 [facility] Comment on above: Order Comment: Agatha graham Type: BLOOD SPECIMENOrdering Facility: [facility] Address: [address] [place] [address] Result Comment: The [place] Diabetes Association (ADA) provides guidance for cutoff values for fasting glucose and random glucose. The ADA defines fasting as no caloric intake for at least 8 hours. Fasting plasma glucose results between 100 to 125 mg/dL indicate increased risk for diabetes (prediabetes). Fasting plasma glucose results greater than or equal to 126 mg/dL meet the criteria for diagnosis of diabetes. In the absence of unequivocal hyperglycemia, results should be confirmed by repeat testing. In a patient with classic symptoms of hyperglycemia or hyperglycemic crisis, random plasma glucose results greater than or equal to 200 mg/dL meet the criteria for diagnosis of diabetes. Reference: Standards of Medical Care in Diabetes 2016, [place] Diabetes Association. Diabetes Care. 2016.39(Suppl 1). Performed By: #### 2 4321-2, 95037-8, 3015-3 ####[facility] [id number] [place] [address] [place] Potassium [Moles/Vol] 4.5 mmol/L Normal 3.7-5.1 [facility] Comment on above: Order Comment: Speci men Type: BLOOD SPECIMENOrdering Facility: [facility] Address: [address] [place], [place] [address] Performed By: #### 2 4321-2, 57606-9, 3015-3 ####[facility] [id number] [place] [id number] [place] Sodium [Moles/Vol] 139 mmol/L Normal 136-144 [facility] Comment on above: Order Comment: Speci men Type: BLOOD SPECIMENOrdering Facility: [facility] Address: [address] [place] [address] Performed By: #### 2 4321-2, , 3015-3 ####[facility] [id number] [place] [address] [place] Urea nitrogen [Mass/Vol] 15 mg/dL Normal 9-24 [facility] Comment on above: Order Comment: Speci men Type: BLOOD SPECIMENOrdering Facility: [facility] Address: [address] [place] [address] Performed By: #### 2 4321-2, 29307-8, 3 ####[facility] [id number] [place] [id number] [place] CASE MGT INIT ASSESon 2021 CASE MGT INIT ASSES HNO ID: [id number] Author: Emely Don RN Service: ? Author Type: Registered Nurse Type: Care Mgt Initial Assessment Filed: 03/13/2022 10:36 AM Note Text: CARE MANAGEMENT: ASSESSMENT AND DISCHARGE PLAN SERVICE DATE: March 13, 2022 SERVICE TIME: 10:34 AM ADVANCE DIRECTIVES Current Advance Directive: None Superintendent Sales Attempted to Assist with AD Completion: Yes Action: Education Provided FREEDOM OF CHOICE EXPLAINED: [place] of Choice Given: No Reason Not Given: No placements necessary This patient has been screened for Care Management Transitional Planning Services. At this time, it does not appear this patient will require transition planning services. Should this change, and the patient require transition planning services during this admission, please contact Case Management. Patient admitted with new onset of A flutter with RVR and HF exacerbation. No skilled discharge needs have been identified at this time. CM will continue to follow. If needed, weekend CM can be reached at pager [phone]. SIGNATURE: Emely Don RN PATIENT NAME: Clayton Parekh DATE: March 13, 2022 TIME: 10:34 AM CONTACT #: [phone] Normal [facility] Magnesium SerPl-mCncon 03-13 Magnesium [Mass/Vol] 2.4 mg/dL High 1.7-2.3 [facility] Comment on above: Order Comment: Speci men Type: BLOOD SPECIMENOrdering Facility: [facility] Address: [address] [place] [address] Performed By: #### 2 4321-2, 17141-9, 6-3 ####[facility] [id number] [address] [place] TSH SerPl-aCncon 03-13-2022 TSH Qn 1.840 m[IU]/L Normal 0.270-4.200 [facility] Comment on above: Order Comment: Agatha rgaham Type: BLOOD SPECIMENOrdering Facility: [facility] Address: [address] [place], [place] [address] Performed By: #### 2 4321-2, 96212-2, 6-3 ####[facility] [id number] [address] [place] CBC W Auto Differential pane l (Bld)on 03-12-2022 Basophils (Bld) [#/Vol] 0.07 10*3/uL Normal <0.11 [facility] Comment on above: Order Comment: Speci men Type: BLOOD SPECIMENOrdering Facility: [facility] Address: [address] [place] [address] Performed By: #### 9 4500-6 #### [facility] CLIA [id number] [address] [place] Basophils/100 WBC (Bld) 1.2 % Normal C [facility] Comment on above: Order Comment: Speci men Type: BLOOD SPECIMENOrdering Facility: [facility] Address: [address] Performed By: #### 9 4500-6 #### [facility] CLIA [id number] [address] [place] [address] [place] Differential cell count method Nom (Bld) Auto Normal [facility] Comment on above: Order Comment: Speci men Type: BLOOD SPECIMENOrdering Facility: [facility] Address: [address] Performed By: #### 9 4500-6 #### [facility] CLIA [id number] [address] [place] [address] [place] Eosinophils (Bld) [#/Vol] 0.13 10*3/uL Normal <0.46 [facility] Comment on above: Order Comment: Speci men Type: BLOOD SPECIMENOrdering Facility: [facility] Address: [address] [place] [address] Performed By: #### 9 4500-6 #### [facility] CLIA [id number] [address] [place] Eosinophils/100 WBC (Bld) 2.3 % Normal [facility] Comment on above: Order Comment: Speci men Type: BLOOD SPECIMENOrdering Facility: [facility] Address: [address] Performed By: #### 9 4500-6 #### [facility] CLIA [id number] [address] [place] Erythrocyte distribution wid th (RBC) [Ratio] 13.2 % Normal 11.5-15.0 [facility] Comment on above: Order Comment: Speci men Type: BLOOD SPECIMENOrdering Facility: [facility] Address: [address] [place] [address] Performed By: #### 9 4500-6 #### [facility] CLIA [id number] [address] [place] Hematocrit (Bld) [Volume fraction] 46.5 % Normal 3 9.0-51.0 [facility] Comment on above: Order Comment: Speci men Type: BLOOD SPECIMENOrdering Facility: [facility] Address: [address] [place], [place] [address] Performed By: #### 9 4500-6 #### [facility] CLIA [id number] [facility] [place] Hemoglobin (Bld) [Mass/Vol] 15.1 g/dL Normal 13.0-17. 0 [facility] Comment on above: Order Comment: Speci men Type: BLOOD SPECIMENOrdering Facility: [facility] Address: [address] [place], [place] [address] Performed By: #### 9 4500-6 #### [facility] CLIA [id number] [address] [place] [address] [place] Immature granulocytes (Bld) [#/Vol] 10*3/uL Normal <0.10 [facility] Comment on above: Order Comment: Speci men Type: BLOOD SPECIMENOrdering Facility: [facility] Address: [address] [place], [place] [address] Performed By: #### 9 4500-6 #### [facility] CLIA [id number] [address] [place] Immature granulocytes/100 WBC (Bld) 0.4 % Normal [facility] Comment on above: Order Comment: Speci men Type: BLOOD SPECIMENOrdering Facility: [facility] Address: [address] Performed By: #### 9 4500-6 #### [facility] CLIA [id number] [address] [place] [address] [place] Lymphocytes (Bld) [#/Vol] 1.58 10*3/uL Normal 1.00-4.0 0 [facility] Comment on above: Order Comment: Speci men Type: BLOOD SPECIMENOrdering Facility: [facility] Address: [address] Performed By: #### 9 4500-6 #### [facility] CLIA [id number] [address] [place] [address] [place] Lymphocytes/100 WBC (Bld) 28.0 % Normal [facility] Comment on above: Order Comment: Speci men Type: BLOOD SPECIMENOrdering Facility: [facility] Address: [address] Performed By: #### 9 4500-6 #### [facility] CLIA [id number] [address] [place] [address] [place] MCH (RBC) [Entitic mass] 29.2 pg Normal 26.0-34.0 [facility] Comment on above: Order Comment: Speci men Type: BLOOD SPECIMENOrdering Facility: [facility] Address: [address] [place] [address] Performed By: #### 9 4500-6 #### [facility] CLIA [id number] [address] [place] [address] [place] MCHC (RBC) [Mass/Vol] 32.5 g/dL Normal 30.5-36.0 [facility] Comment on above: Order Comment: Speci men Type: BLOOD SPECIMENOrdering Facility: [facility] Address: [address] [place], [place] [address] Performed By: #### 9 4500-6 #### [facility] CLIA [id number] [address] [place] [address] [place] MCV (RBC) [Entitic vol] 89.9 fL Normal 80.0-100.0 C [facility] Comment on above: Order Comment: Speci men Type: BLOOD SPECIMENOrdering Facility: [facility] Address: [address] [place] [address] Performed By: #### 9 4500-6 #### [facility] CLIA [id number] [address] [place] [address] [place] Monocytes (Bld) [#/Vol] 0.72 10*3/uL Normal <0.87 [facility] Comment on above: Order Comment: Speci men Type: BLOOD SPECIMENOrdering Facility: [facility] Address: [address] [place] [address] Performed By: #### 9 4500-6 #### [facility] CLIA [id number] [address] [place] [address] [place] Monocytes/100 WBC (Bld) 12.8 % Normal C [facility] Comment on above: Order Comment: Speci men Type: BLOOD SPECIMENOrdering Facility: [facility] Address: [address] [place], [place] [address] Performed By: #### 9 4500-6 #### [facility] CLIA [id number] [address] [place] [address] [place] Neutrophils (Bld) [#/Vol] 3.12 10*3/uL Normal 1.45-7.5 0 [facility] Comment on above: Order Comment: Speci men Type: BLOOD SPECIMENOrdering Facility: [facility] Address: [address] [place], [place] [address] Performed By: #### 9 4500-6 #### [facility] CLIA [id number] [address] [place] [address] [place] Neutrophils/100 WBC (Bld) 55.3 % Normal [facility] Comment on above: Order Comment: Speci men Type: BLOOD SPECIMENOrdering Facility: [facility] Address: [address] [place] [address] Performed By: #### 9 4500-6 #### [facility] CLIA [id number] [address] [place] [address] [place] Nucleated RBC (Bld) [#/Vol] 10*3/uL Normal <0.01 [facility] Comment on above: Order Comment: Speci men Type: BLOOD SPECIMENOrdering Facility: [facility] Address: [address] [place], [place] [address] Performed By: #### 9 4500-6 #### [facility] CLIA [id number] [address] [place] [address] [place] Nucleated RBC/100 WBC (Bld) [Ratio] 0.0 /100 WBC Normal [facility] Comment on above: Order Comment: Speci men Type: BLOOD SPECIMENOrdering Facility: [facility] Address: [address] [place] [address] Performed By: #### 9 4500-6 #### [facility] CLIA [id number] [address] [place] [address] [place] Platelet mean volume (Bld) [ Entitic vol] 9.4 fL Normal 9.0-12.7 [facility] Comment on above: Order Comment: Speci men Type: BLOOD SPECIMENOrdering Facility: [facility] Address: [address] [place] [address] Performed By: #### 9 4500-6 #### [facility] CLIA [id number] [address] [place] [address] [place] Platelets (Bld) [#/Vol] 284 10*3/uL Normal 150-400 [facility] Comment on above: Order Comment: Speci men Type: BLOOD SPECIMENOrdering Facility: [facility] Address: [address] [place] [address] Performed By: #### 9 4500-6 #### [facility] CLIA [id number] [address] [place] [address] [place] RBC (Bld) [#/Vol] 5.17 10*6/uL Normal 4.20-6.00 [facility] Comment on above: Order Comment: Speci men Type: BLOOD SPECIMENOrdering Facility: [facility] Address: [address] [place] [address] Performed By: #### 9 4500-6 #### [facility] IA [id number] [address] [place] [address] [place] WBC (Bld) [#/Vol] 5.64 10*3/uL Normal 3.70-11.00 [facility] Comment on above: Order Comment: Speci men Type: BLOOD SPECIMENOrdering Facility: [facility] Address: [address] [place] [address] Performed By: #### 9 4500-6 #### [facility] IA [id number] [address] [place] [address] [place] Basophils (Bld) [#/Vol] 0.07 10*3/uL <0.11 k/uL [facility] Basophils/100 WBC (Bld) 1.2 % C [facility] Differential cell count meth od Nom (Bld) Auto [facility] Eosinophils (Bld) [#/Vol] 0.13 10*3/uL <0.46 k/ uL [facility] Eosinophils/100 WBC (Bld) 2.3 % [facility] Erythrocyte distribution wid th (RBC) [Ratio] 13.2 % 11.5 - 15.0 % [facility] Hematocrit (Bld) [Volume fraction] 46.5 % 3 9.0 - 51.0 % [facility] Hemoglobin (Bld) [Mass/Vol] 15.1 g/dL 13.0 - 1 7.0 g/dL [facility] Immature granulocytes (Bld) [#/Vol] <0.10 k/uL [facility] Immature granulocytes/100 WBC (Bld) 0.4 % [facility] Lymphocytes (Bld) [#/Vol] 1.58 10*3/uL 1.00 - 4 .00 k/uL [facility] Lymphocytes/100 WBC (Bld) 28.0 % [facility] MCH (RBC) [Entitic mass] 29.2 pg 26.0 - 34.0 pg [facility] MCHC (RBC) [Mass/Vol] 32.5 g/dL 30.5 - 36.0 g/ dL [facility] MCV (RBC) [Entitic vol] 89.9 fL 80.0 - 100.0 fL [facility] Monocytes (Bld) [#/Vol] 0.72 10*3/uL <0.87 k/uL [facility] Monocytes/100 WBC (Bld) 12.8 % [facility] Neutrophils (Bld) [#/Vol] 3.12 10*3/uL 1.45 - 7 .50 k/uL [facility] Neutrophils/100 WBC (Bld) 55.3 % [facility] Nucleated RBC (Bld) [#/Vol] <0.01 k/ uL [facility] Nucleated RBC/100 WBC (Bld) [Ratio] 0.0 /100 WBC [facility] Platelet mean volume (Bld) [ Entitic vol] 9.4 fL 9.0 - 12.7 fL [facility] Platelets (Bld) [#/Vol] 284 10*3/uL 150 - 400 k /uL [facility] RBC (Bld) [#/Vol] 5.17 10*6/uL 4.20 - 6.00 m/uL [facility] WBC (Bld) [#/Vol] 5.64 10*3/uL 3.70 - 11.00 k/u L [facility] CNOVon 03-12-2022 CNOV Office Visit (CARLOS EARLY MAI) CLAYTON PAREKH ([id number]) 1965 M Date Time Provider Department 03/12/22 8:00 AM RICA ERWIN C[facility] During your visit today, we recorded the following information about you: Pulse Respiration Blood pressure Weight 139/minute 20/minute 119/83 133.4 kg Height 1.778 m Rica Erwin MD 03/12/2022 10:34 AM Signed [facility] SECTION OF HEART FAILURE and CARDIAC TRANSPLANT MEDICINE OUTPATIENT VISIT DATE March 12, 2022 OUTPATIENT VISIT TYPE New Patient PRIMARY CARE PHYSICIAN: Jenny Muñoz MD [address] [place] [address] CHIEF COMPLAINT: Atrial Flutter. NURSING INTAKE (Patient?s concerns and/or recent hospitalizations/ER visits): NURSING INTAKE (Patient's concerns and/or recent hospitalizations/ER visits): Clayton Parekh is a 56 year old male from [place], [place] here for new onset atrial flutter. PMHx includes aortic dilatation, hypothyroidism, pre-diabetes, RLS, venous insufficieny, DVT right deep femoral and posterior tibial veins. He reports increasing fatigue for the past 1-2 months. Last week his checked a home pulse ox noting a pulse of 138 which prompted an ED visit to [facility]. He was admitted with new onset atrial flutter after IV metoprolol x3 was ineffective and IV cardizem did slow his rate to the 90's. He was started on apixaban 5 mg bid and IV cardizem was transitioned to po cardizem. Chads-Vasc of 3-4 for history of DVT, PVD, and pre-diabetes. He notes he continues to feel fatigue, poor energy, MERCADO, increasing cough, palpitations when laying quietly, lightheadedness, dizziness, near-syncope, and chronic lower extremity edema. He is currently on Keflex for left AC phlebitis after IV access and Augmentin for cough. He follows a regular diet and does not exercise (nor did he exercise prior to 1-2 months ago). He has a referral for a polysomnogram which is not scheduled as of yet. He has a family history of atrial fibrillation which his 79 year old mother was recently diagnosed with atrial fibrillation and ischemic cardiac disease in his father and one brother. HF Nursing Assessment: Interim Hospitalizations and/or ER visits: 03/04/2022 Chest Pain: No Skipping or irregular heartbeats: Yes Shortness of breath at rest: No Shortness of breath with activity: Yes Cough: Yes Waking up in the middle of the night gasping for air: Yes Lightheadedness or dizziness: Yes Feeling like you are going to pass out: Yes Actually passing out: No Poor energy level: Yes Unintentional weight gain: No Unintentional weight loss: No Swelling in your legs,feet, abdomen: Yes Filling up quickly when you eat: Yes HISTORY OF PRESENT ILLNESS: 56 year old male with history of Class III obesity,restless leg syndrome, probable PATRICK (sleep study pending), restless leg syndrome, family history of premature CAD (Brother [place] 57yo), DVT 1 year ago. For the last couple of months he has been noticing progressive shortness of breath on exertion. In 03/03/2022 he felt extremely fatigued and checked his SPO2 98 with a HR 140bpm. The following morning went to ED. In addition he has been having cough and dizziness when he coughs. Pre- syncope associated with cough. During his ED visit he was diagnosed with atrial flutter and started on diltiazem and anticoagulation. PAST MEDICAL HISTORY Diagnosis Date Aortic dilatation (HCC) Atrial flutter (HCC) COVID-2019 pneumonia Hypothyroid Lymphedema Restless leg syndrome Venous insufficiency COvid Pneumonia PAST SURGICAL HISTORY Procedure Laterality Date ARTHROSCOPY KNEE; W/ FIXATION right knee, meniscus repair ENDOVENOUS RF ABLATION SAPHENOUS VEIN BLE EVLA Apr 2019 LAPAROSCOPIC CHOLECYSTECTOMY SOCIAL HISTORY Social History Tobacco Use Smoking status: Never Smokeless tobacco: Never Tobacco comments: 2 cigars per year Vaping Use Vaping Use: Never used Substance Use Topics Alcohol use: Yes Comment: 6-8 beers a week Drug use: Never FAMILY HISTORY Problem Relation Age of Onset other (Atrial Fibrillation) Mother 79 Ischemic Heart Disease Father [place] at age 38 other (ALS) Father Heart Attack Paternal Grandfather fatal [place] at age 61 Heart Attack Brother 57 PCI x 2 other (Lymphedema) Brother No Known Problems Brother No Known Problems Son No Known Problems Son [place] brother 55 ALLERGIES: ALLERGIES No Known Allergies CURRENT MEDICATIONS: apixaban (ELIQUIS) 5 mg tab(s) Take 5 mg by mouth twice daily. ascorbic acid, vitamin C, (VITAMIN C) 500 mg tablet Take 1,000 mg by mouth once daily. dilTIAZem CD (CARDIZEM CD, CARTIA XT) 300 mg 24 hr capsule Take 300 mg by mouth once daily. cephALEXin (KEFLEX) 500 mg capsule Take 500 mg by m (more content not included)... Normal [facility] Comprehensive metabolic 2000 panelon 03-12-2022 Albumin [Mass/Vol] 4.6 g/dL Normal 3.9-4.9 [facility] Comment on above: Order Comment: Speci men Type: BLOOD SPECIMENOrdering Facility: [facility] Address: [address] [place] [address] Performed By: #### 2 4323-8, 31647-6, ####[facility] [id number] [place] [address] [place] ALP [Catalytic activity/Vol] 87 U/L Normal 38-113 [facility] Comment on above: Order Comment: Speci men Type: BLOOD SPECIMENOrdering Facility: [facility] Address: [address] [place] [address] Performed By: #### 2 4323-8, 32027-1, ####[facility] [id number] [address] [place] ALT [Catalytic activity/Vol] 27 U/L Normal 10-54 [facility] Comment on above: Order Comment: Speci men Type: BLOOD SPECIMENOrdering Facility: [facility] Address: [address] Performed By: #### 2 4323-8, 27919-3, ####[facility] [id number] [place] [address] [place] Anion gap [Moles/Vol] 11 mmol/L Normal 9-18 [facility] Comment on above: Order Comment: Speci men Type: BLOOD SPECIMENOrdering Facility: [facility] Address: [address] Performed By: #### 2 4323-8, 01471-3, ####[facility] [id number] [place] [address] [place] AST [Catalytic activity/Vol] 23 U/L Normal 14-40 [facility] Comment on above: Order Comment: Speci men Type: BLOOD SPECIMENOrdering Facility: [facility] Address: [address] [place] [address] Performed By: #### 2 4323-8, 52858-0, ####[facility] [id number] [place] [address] [place] Bilirubin [Mass/Vol] 0.6 mg/dL Normal 0.2-1.3 [facility] Comment on above: Order Comment: Speci men Type: BLOOD SPECIMENOrdering Facility: [facility] Address: [address] [place] [address] Performed By: #### 2 4323-8, 48815-7, ####[facility] [id number] [place] [address] [place] Calcium [Mass/Vol] 9.7 mg/dL Normal 8.5-10.2 [facility] Comment on above: Order Comment: Speci men Type: BLOOD SPECIMENOrdering Facility: [facility] Address: [address] [place], [place] [address] Performed By: #### 2 4323-8, 20449-6, ####[facility] [id number] [place] [address] [place] Chloride [Moles/Vol] 101 mmol/L Normal 97-105 [facility] Comment on above: Order Comment: Speci men Type: BLOOD SPECIMENOrdering Facility: [facility] Address: [address] [place], [place] [address] Performed By: #### 2 4323-8, 90540-5, 85891-2 ####[facility] [id number] [place] [address] [place] CO2 [Moles/Vol] 26 mmol/L Normal 22-30 [facility] Comment on above: Order Comment: Speci men Type: BLOOD SPECIMENOrdering Facility: [facility] Address: [address] [place] [address] Performed By: #### 2 4323-8, 17525-9, ####[facility] [id number] [place] [address] [place] Creatinine [Mass/Vol] 0.90 mg/dL Normal 0.73-1.22 [facility] Comment on above: Order Comment: Speci men Type: BLOOD SPECIMENOrdering Facility: [facility] Address: [address] [place] [address] Performed By: #### 2 4323-8, 06666-0, ####[facility] [facility] [id number] [place] [address] [place] ESTIMATED GLOMERULAR FILTRATION RATE 99 mL/min/1.73m??? Normal >=60 [facility] Comment on above: Order Comment: Speci men Type: BLOOD SPECIMENOrdering Facility: [facility] Address: [address] [place] [address] Result Comment: Jolie mated Glomerular Filtration Rate (eGFR) is calculated using the 2020 CKD-EPI creatinine equation. This equation utilizes serum creatinine, sex, and age as parameters. The creatinine assay has traceable calibration to isotope dilution-mass spectrometry. Refer to KDIGO guidelines for clinical interpretation. In patients with unstable renal function, e.g. those with acute kidney injury, the eGFR may not accurately reflect actual GFR. Performed By: #### 2 4323-8, 39279-0, 01370-1 ####[facility] LABIA [id number] [place] [address] [place] Glucose [Mass/Vol] 103 mg/dL High 74-99 [facility] Comment on above: Order Comment: Speci men Type: BLOOD SPECIMENOrdering Facility: [facility] Address: [address] [place] [address] Result Comment: The [place] Diabetes Association (ADA) provides guidance for cutoff values for fasting glucose and random glucose. The ADA defines fasting as no caloric intake for at least 8 hours. Fasting plasma glucose results between 100 to 125 mg/dL indicate increased risk for diabetes (prediabetes). Fasting plasma glucose results greater than or equal to 126 mg/dL meet the criteria for diagnosis of diabetes. In the absence of unequivocal hyperglycemia, results should be confirmed by repeat testing. In a patient with classic symptoms of hyperglycemia or hyperglycemic crisis, random plasma glucose results greater than or equal to 200 mg/dL meet the criteria for diagnosis of diabetes. Reference: Standards of Medical Care in Diabetes 2016, [place] Diabetes Association. Diabetes Care. 2016.39(Suppl 1). Performed By: #### 2 4323-8, 52290-2, 50783-7 ####[facility] LABIA [id number] [place] [address] [place] Potassium [Moles/Vol] 4.5 mmol/L Normal 3.7-5.1 [facility] Comment on above: Order Comment: Speci men Type: BLOOD SPECIMENOrdering Facility: [facility] Address: [address] [place], [place] [id number] Performed By: #### 2 4323-8, 52291-0, 90424-4 ####[facility] LAB[facility] [id number] [place] [address] [place] Protein [Mass/Vol] 7.4 g/dL Normal 6.3-8.0 [facility] Comment on above: Order Comment: Speci men Type: BLOOD SPECIMENOrdering Facility: [facility] Address: [address] [place] [address] Performed By: #### 2 4323-8, 19358-8, ####[facility] LABCLIA [id number] [place] [address] [place] Sodium [Moles/Vol] 138 mmol/L Normal 136-144 [facility] Comment on above: Order Comment: Speci men Type: BLOOD SPECIMENOrdering Facility: [facility] Address: [address] [place] [address] Performed By: #### 2 4323-8, 54935-7, ####[facility] LABCLIA [id number] [place] [address] [place] Urea nitrogen [Mass/Vol] 15 mg/dL Normal 9-24 [facility] Comment on above: Order Comment: Speci men Type: BLOOD SPECIMENOrdering Facility: [facility] Address: [address] [place] [address] Performed By: #### 2 4323-8, 50284-2, ####[facility] LABIA [id number] [place] [address] [place] [id number] 03-12-2022 ECG01 Ventricular Rate : 1 38 BPM Atrial Rate : 276 BPM QRS Duration : 90 ms Q-T Interval : 316 ms QTC Calculation(Bazett) : 478 ms Calculated P [place] : -97 degrees Calculated R [place] : -57 degrees Calculated T [place] : 82 degrees ATRIAL FLUTTER WITH 2:1 A-V CONDUCTION LEFT ANTERIOR FASCICULAR BLOCK NONSPECIFIC ST AND T WAVE ABNORMALITY ABNORMAL ECG Confirmed by MENA MAN M.D. ([id number]) on 04/15/2022 3:52:16 PM NAME : CLAYTON PAREKH PID : [id number] : 1965 Gender : Male Race : ORD : Procedure Date : Mar 12 2022 08:46:49 Edit Date : Apr 15 2022 15:53:15 Diagnosis: ATRIAL FLUTTER WITH 2:1 A-V CONDUCTION LEFT ANTERIOR FASCICULAR BLOCK NONSPECIFIC ST AND T WAVE ABNORMALITY ABNORMAL ECG Confirmed by MENA MAN M.D. ([id number]) on 04/15/2022 3:52:16 PM Test Reason : Location : 568 : J34NS Overread By : MENA MAN M.D. Edited By : MENA AMN M.D. Referred By : RICA ERWIN Acquired by : [id number], Normal [facility] C leveland HISTORY PHYSICALon 2 HISTORY PHYSICAL HNO ID: [id number] Author: Oneida Bradley MD Service: Cardiovascular Medicine Author Type: Physician Type: HANDP Filed: 03/13/2022 2:12 PM Note Text: [facility] CARDIOVASCULAR MEDICINE HISTORY AND PHYSICAL (Template ID [id number]) Clayton Parekh [id number] PRIMARY SERVICE: Cardiovascular Medicine: Electrophysiology DATE OF ADMISSION: 03/12/2022 CHIEF COMPLAINT AF with RVR and HF exacerbation HISTORY OF PRESENT ILLNESS Clayton Parekh is a 56 year old male admitted from clinic with Dr. Erwin with new onset atrial flutter. PMHx includes aortic dilatation, hypothyroidism, diabetes, restless leg syndrome, probable PATRICK (sleep study pending), venous insufficieny, DVT right deep femoral and posterior tibial veins. Admitted one week ago to [facility] for high heart rates on his home pulse ox, 140 bmp. He was admitted with new onset atrial flutter. He was given IV metoprolol x 3 which was ineffective. He was given IV cardizem which slowed his rate to the 90s. He was started on apixaban and transitioned to oral cardizem. He was told to return in 4-weeks for cardioversion, but has been symptomatic with a cough which started 2-3 months ago. ChadsVasc 4 (HTN, DM, DVT) He is currently on Keflex for left AC phlebitis after recent IV access and Augmentin for cough. PAST MEDICAL HISTORY PAST MEDICAL HISTORY Diagnosis Date Aortic dilatation (HCC) Atrial flutter (HCC) COVID-19 2019 pneumonia DVT (deep venous thrombosis) (HCC) 2020 right deep femoral and posterior tibial/ Xarelto x 1 month Hypothyroid Lymphedema Restless leg syndrome Venous insufficiency PAST SURGICAL HISTORY Procedure Laterality Date ARTHROSCOPY KNEE; W/ FIXATION right knee, meniscus repair ENDOVENOUS RF ABLATION SAPHENOUS VEIN BLE EVLA Apr 2019 LAPAROSCOPIC CHOLECYSTECTOMY FAMILY HISTORY FAMILY HISTORY Problem Relation Age of Onset other (Atrial Fibrillation) Mother 79 Ischemic Heart Disease Father [place] at age 38 other (ALS) Father Heart Attack Paternal Grandfather fatal [place] at age 61 Heart Attack Brother 57 PCI x 2 other (Lymphedema) Brother No Known Problems Brother No Known Problems Son No Known Problems Son SOCIAL HISTORY Social History Tobacco Use Smoking status: Never Smokeless tobacco: Never Tobacco comments: 2 cigars per year Vaping Use Vaping Use: Never used Substance Use Topics Alcohol use: Yes Comment: 6-8 beers a week Drug use: Never HOME MEDICATIONS apixaban (ELIQUIS) 5 mg tab(s)Take 5 mg by mouth twice daily.Disp: Rfl: ascorbic acid, vitamin C, (VITAMIN C) 500 mg tabletTake 1,000 mg by mouth once daily.Disp: Rfl: dilTIAZem CD (CARDIZEM CD, CARTIA XT) 300 mg 24 hr capsuleTake 300 mg by mouth once daily.Disp: Rfl: cephALEXin (KEFLEX) 500 mg capsuleTake 500 mg by mouth four times daily.Disp: Rfl: amoxicillin-clavulanic acid (AUGMENTIN) 875-125 mg per tabletTake 1 tablet by mouth twice daily.Disp: Rfl: levothyroxine (SYNTHROID) 100 mcg tabletTake 100 mcg by mouth once daily.Disp: Rfl: pramipexole (MIRAPEX) 1 mg tabletTake 1 mg by mouth daily at bedtime. Disp: Rfl: MAGNESIUM ORALTake 500 mg by mouth.Disp: Rfl: perflutren lipid microspheres (DEFINITY) 1.1 mg/mL injection (to be provided with echo procedure)Inject 1.3 mL intravenously as needed for up to 1 dose. Instructions Administration Instructions: If no IV access, insert saline lock prior to administering contrast. Discontinue saline lock post exam. If patient has central line or IVAD, may access for administration according to line specific nursing protocol. Once exam is complete, flush line and de-access per line specific nursing protocol. Diluted IV Bolus: Dilute 1.3 ml of Definity with 8.7 ml of preservative-free salineDisp: 1.3 mLRfl: 0 INPATIENT MEDICATIONS Current Facility-Administered Medications Medication Dose Route Frequency acetaminophen 650 mg tab(s) (TYLENOL) 650 mg ORAL q 4 H PRN docusate sodium 100 mg cap(s) (COLACE) 100 mg ORAL BID PRN NaCl 0.9% iv flush bag 20 mL INTRAVENOUS PRN sodium chloride 0.9 % (flush) 3-5 mL (BD POSIFLUSH) 3-5 mL INTRAVENOUS q 12 H [START ON 03/13/2022] dilTIAZem CD 300 mg cap(s) (CARDIZEM CD, CARTIA XT) 300 mg ORAL DAILY sodium chloride 0.9 % (flush) 2-10 mL (BD POSIFLUSH) 2-10 mL INTRAVENOUS ONCE apixaban 5 mg tab(s) (ELIQUIS) 5 mg ORAL BID amoxicillin-clavulanic acid 875 mg tab(s) (AUGMENTIN) 875 mg ORAL BID [START ON 03/13/2022] levothyroxine 100 mcg tab(s) (SYNTHROID) 100 mcg ORAL DAILY [START ON 03/13/2022] ascorbic acid (vitamin C) 1,000 mg tab(s) (VITAMIN C) 1,000 mg ORAL DAILY pramipexole 1 mg tab(s) (MIRAPEX) 1 mg ORAL DAILY benzonatate 100 mg cap(s) (TESSALON PERLE) 100 mg ORAL TID ALLERGIES ALLERGIES No Known Allergies REVIEW OF SYSTEMS Constitutional: No weight loss, malaise or fevers. HEENT: Negative for frequent or significant headaches, No changes (more content not included)... Normal [facility] Magnesium [facility] Magnesium [Mass/Vol] 2.4 mg/dL High 1.7-2.3 [facility] Comment on above: Order Comment: Speci men Type: BLOOD SPECIMENOrdering Facility: [facility] Address: [address] [place] [address] Performed By: #### 2 4323-8, 96160-4, 65700-6 ####[facility] LABCLIA [id number] [address] OF [facility] NT-proBNP [facility] 03-12 Natriuretic peptide.B prohor nica N-Terminal [Mass/Vol] 246 pg/mL High <125 [facility] Comment on above: Order Comment: Speci men Type: BLOOD SPECIMENOrdering Facility: [facility] Address: [address] [place] [address] Performed By: #### 2 4323-8, 53266-9, 18947-3 ####[facility] LABCLIA [id number] [address] OF [place] SARS-CoV-2 RNA Resp Ql SOURAV+p robeon 03-12-2022 SARS-CoV-2 (COVID-19) RNA SOURAV+probe Ql (Resp) COVID 19 RESULT: SARS-CoV-2 (Agent of COVID-19) Not Detected by RT-PCR or equivalent method. This test has been authorized by FDA under an Emergency Use Authorization (EUA). Normal [facility] Comment on above: Performed By: #### 9 4500-6 #### [facility] CLIA [id number] OF [facility] XR CHEST 2V FRONTAL/LATon XR CHEST 2V FRONTAL/LAT * * *Final Report* * * DATE OF EXAM: Mar 12 2022 11:01AM JIX [id number] - XR CHEST 2V FRONTAL/LAT / PROCEDURE REASON: Atrial flutter, unspecified type (HCC) * * * * Physician Interpretation * * * * EXAMINATION: CHEST RADIOGRAPH (2 VIEW FRONTAL and LATERAL) CLINICAL HISTORY: Atrial flutter, unspecified type (HCC) MQ: [id number]_6 EXAM DATE/TIME: 03/12/2022 11:01 AM COMPARISON: No relevant prior studies available. RESULT: Lines, tubes, and devices: None. Lungs and pleura: Lungs are hypoinflated with partial atelectasis along the medial bases. Prominence of the lung markings bilaterally could be due to crowded vessels given the low lung volume. Underlying mild interstitial edema or inflammation cannot be entirely excluded. An azygos lobe is compatible with normal variation. There is mild anterior eventration of right hemidiaphragm. No pleural effusion or pneumothorax. Cardiomediastinal silhouette: Heart is borderline in size. Thoracic aorta is mildly tortuous. Bones and soft tissues: Degenerative changes are seen in the spine. IMPRESSION: See result Aircraft Body Repairer: NIKHIL Transcribe Date/Time: Mar 12 2022 3:48P Dictated by : THADDEUS MUSA MD This examination was interpreted and the report reviewed and electronically signed by: THADDEUS MUSA MD on Mar 12 2022 3:50PM EST [id number] Normal [facility] ic Basic Metabolic Panelon 11-0 Anion gap [Moles/Vol] 8.3 mmol/L Normal 6.0-15.0 [facility] Comment on above: Performed By: #### C BC, PT, PTT, CMP, BNP, HS TROP #### [facility] [address] Calcium [Mass/Vol] 8.5 mg/dL Normal 8.2-10.2 [facility] Comment on above: Performed By: #### C BC, PT, PTT, CMP, BNP, HS TROP #### [facility] [address] Chloride [Moles/Vol] 103 mmol/L Normal 95-114 [facility] Comment on above: Performed By: #### C BC, PT, PTT, CMP, BNP, HS TROP #### [facility] [address] CO2 [Moles/Vol] 27.1 mmol/L Normal 22.0-30.0 [facility] Comment on above: Performed By: #### C BC, PT, PTT, CMP, BNP, HS TROP #### [facility] [address] [place] [address] [place] Creatinine [Mass/Vol] 0.87 mg/dL Normal 0.64-1.27 [facility] Comment on above: Performed By: #### C BC, PT, PTT, CMP, BNP, HS TROP #### [facility] [address] [place] [address] [place] Creatinine Clr Calc Pharmacy 128.71 Normal [facility] Comment on above: Result Comment: PERF ORMED BY: [place] [address] PATHOLOGIST INSIDE SALES TRAINER ORESTES SRINIVASAN M.D. Performed By: #### C BC, PT, PTT, CMP, BNP, HS TROP #### [facility] [address] Estimated GFR ( Pretty > 60 [facility] Comment on above: Result Comment: GFR estimated reference range: According to KDOQI guidelines, <60 ml/min/1.73m2 is sufficient to diagnose a patient with chronic kidney disease. Performed By: #### C BC, PT, PTT, CMP, BNP, HS TROP #### [facility] [address] Estimated GFR (Non- Am > 60 [facility] Comment on above: Performed By: #### C BC, PT, PTT, CMP, BNP, HS TROP #### [address] Glucose [Mass/Vol] 157 mg/dL High 70-100 [facility] Comment on above: Result Comment: [place] Glucose Reference Range is dependent on time and content of last meal. Glucose of more than 200 mg/dL in a nonstressed, ambulatory subject supports the diagnosis of Diabetes Mellitus. ADA recommended reference range Performed By: #### C BC, PT, PTT, CMP, BNP, HS TROP #### [address] Potassium [Moles/Vol] 4.4 mmol/L Normal 3.5-5.1 [facility] Comment on above: Performed By: #### C BC, PT, PTT, CMP, BNP, HS TROP #### [address] Sodium [Moles/Vol] 134 mmol/L Low 136-146 [facility] Comment on above: Performed By: #### C BC, PT, PTT, CMP, BNP, HS TROP #### [address] Urea nitrogen [Mass/Vol] 13 mg/dL Normal 9-23 [facility] Comment on above: Performed By: #### C BC, PT, PTT, CMP, BNP, HS TROP #### [address] Complete Blood Count Auto Di ffon 03-05-2022 Basophils (Bld) [#/Vol] 0.0 10*3/uL Normal 0.0-0.2 [facility] Comment on above: Result Comment: PERF ORMED BY: [place] [address] PATHOLOGIST INSIDE SALES TRAINER ORESTES SRINIVASAN M.D. Performed By: #### C BC, PT, PTT, CMP, BNP, HS TROP #### [address] Basophils/100 WBC (Bld) 0.9 % Normal . F [facility] Comment on above: Performed By: #### C BC, PT, PTT, CMP, BNP, HS TROP #### [address] Eosinophils (Bld) [#/Vol] 0.1 10*3/uL Normal 0.0-0.45 [facility] Comment on above: Performed By: #### C BC, PT, PTT, CMP, BNP, HS TROP #### [address] Eosinophils/100 WBC (Bld) 1.7 % Normal . [facility] Comment on above: Performed By: #### C BC, PT, PTT, CMP, BNP, HS TROP #### [address] Erythrocyte distribution wid th (RBC) [Ratio] 14.7 % Normal 12.0-14.8 [facility] Comment on above: Performed By: #### C BC, PT, PTT, CMP, BNP, HS TROP #### [address] Hematocrit (Bld) [Volume fraction] 41.4 % Normal 38.8-50.0 [facility] Comment on above: Performed By: #### C BC, PT, PTT, CMP, BNP, HS TROP #### [address] Hemoglobin (Bld) [Mass/Vol] 13.3 g/dL Normal 13.0-17. 0 [facility] Comment on above: Performed By: #### C BC, PT, PTT, CMP, BNP, HS TROP #### [address] Lymphocytes (Bld) [#/Vol] 1.2 10*3/uL Normal 1.00-4.8 [facility] Comment on above: Performed By: #### C BC, PT, PTT, CMP, BNP, HS TROP #### [address] Lymphocytes/100 WBC (Bld) 28.9 % Normal . [facility] Comment on above: Performed By: #### C BC, PT, PTT, CMP, BNP, HS TROP #### [address] MCH (RBC) [Entitic mass] 29.0 pg Normal 27.5-35.2 [facility] Comment on above: Performed By: #### C BC, PT, PTT, CMP, BNP, HS TROP #### [address] MCV (RBC) [Entitic vol] 90.0 fL Normal 83.5-101 F [facility] Comment on above: Performed By: #### C BC, PT, PTT, CMP, BNP, HS TROP #### [address] Mean Corpuscular HGB Conc 32.2 g/dL Low 32.5-35.6 [facility] Comment on above: Performed By: #### C BC, PT, PTT, CMP, BNP, HS TROP #### [place] [address] [place] Monocytes (Bld) [#/Vol] 0.7 10*3/uL Normal 0.0-0.8 [facility] Comment on above: Performed By: #### C BC, PT, PTT, CMP, BNP, HS TROP #### [address] Monocytes/100 WBC (Bld) 15.8 % Normal . F [facility] Comment on above: Performed By: #### C BC, PT, PTT, CMP, BNP, HS TROP #### [facility] [address] [place] [address] [place] Neutrophils (Bld) [#/Vol] 2.2 10*3/uL Normal 1.8-7.7 [facility] Comment on above: Performed By: #### C BC, PT, PTT, CMP, BNP, HS TROP #### [facility] [address] Neutrophils/100 WBC (Bld) 52.7 % Normal . [facility] Comment on above: Performed By: #### C BC, PT, PTT, CMP, BNP, HS TROP #### [address] Nucleated RBC/100 WBC (Bld) [Ratio] 0.1 % Normal 0-0.5 [facility] Comment on above: Performed By: #### C BC, PT, PTT, CMP, BNP, HS TROP #### [address] Platelet mean volume (Bld) [Entitic vol] 7.8 fL Normal 6.6-10.1 [facility] Comment on above: Performed By: #### C BC, PT, PTT, CMP, BNP, HS TROP #### [place] [address] [place] Platelets (Bld) [#/Vol] 189 10*3/uL Normal 150-450 [facility] Comment on above: Performed By: #### C BC, PT, PTT, CMP, BNP, HS TROP #### [place] [address] [place] RBC (Bld) [#/Vol] 4.60 10*6/uL Normal 3.90-5.60 [facility] Comment on above: Performed By: #### C BC, PT, PTT, CMP, BNP, HS TROP #### [place] [address] [place] WBC (Bld) [#/Vol] 4.1 10*3/uL Low 4.5-11.0 [facility] Comment on above: Performed By: #### C BC, PT, PTT, CMP, BNP, HS TROP #### [facility] [address] [place] [id number] [place] ECG 12 lead ECGon 03-05-2022 ECG 12 lead ECG [facility] [place] [address] [place] [address] Electrocardiograph Report Signed Patient: Clayton Parekh MR#: [id number] 4 : 1965 Acct:[id number] Age/Sex: 56 / M ADM Date: 03/05/22 Loc: Room: [address] [place] [address] Type: DIS IN Attending Dr: Srikanth Whiteside DO Ordering Provider: Srikanth Whiteside DO Date of Service: 03/05/2207/22/499 ECG/ECG 12 lead ECG: New DX of A-Flutter with RVR Copies to: Test Reason : Blood Pressure : / mmHG Vent. Rate : 092 BPM Atrial Rate : 276 BPM P-R Int : 000 ms QRS Dur : 092 ms QT Int : 346 ms P-R-T Axes : 083 -53 086 degrees QTc Int : 427 ms Atrial flutter with variable AV block Left anterior fascicular block Abnormal ECG When compared with ECG of 04-MAR-2022 08:13, Ventricular rate has dropped by 48 BPM Confirmed by [facility], ARIAS ([id number]) on 03/05/2022 2:07:06 PM Referred By: Electronically Signed By:ARIAS ATKINS MD [facility] Transcribed By: MUS Signed By Arias Atkins MD, FACC 03/05/22 1407 Normal [facility] A1C with Estimated Average G brenda 03-04-2022 Glucose [Mass/Vol] 140 mg/dL Normal [facility] Comment on above: Order Comment: Comme nt please add on Result Comment: PERF ORMED BY: [place] [address] PATHOLOGIST INSIDE SALES TRAINER ORESTES SRINIVASAN M.D. Performed By: #### C BC, PT, PTT, CMP, BNP, HS TROP #### [facility] [address] HbA1c (Bld) [Mass fraction] 6.5 % High 4.3-5.6 [facility] Comment on above: Order Comment: Comme nt please add on Result Comment: Incr eased risk for diabetes: 5.7 - 6.4 diabetes: >6.4 glycemic control for adults with diabetes: <7.0 Performed By: #### C BC, PT, PTT, CMP, BNP, HS TROP #### [facility] [address] B-Type Natriuretic Peptideon 03-04-2022 Natriuretic peptide B (Bld) [Mass/Vol] 57.0 pg/mL Normal 5-100 [facility] Comment on above: Result Comment: PERF ORMED BY: [place] [address] PATHOLOGIST INSIDE SALES TRAINER ORESTES SRINIVASAN M.D. Performed By: #### C BC, PT, PTT, CMP, BNP, HS TROP #### [facility] [address] COVID-19 / Flu A/B / RSV PCR on 03-04-2022 SARS-CoV-2 (COVID-19) RNA SOURAV+probe Ql (Unsp spec) COVID-19 Cep[place] Result Negative for SARS-CoV-2 RNA by RT-PCR Flu A Cepheid Result Negative for Flu A RNA by RT-PCR Flu B Cepheid Result Negative for Flu B RNA by RT-PCR RSV Cepheid Result Negative for RSV RNA by RT-PCR COVID19 Blank Space Reference: Negative COVID19 Blank Space Cepheid Disclaimer The Cepheid Xpert Xpress CoV-2/Flu/RSV Plus has [place]epheid Disclaimer not been FDA cleared or approved; this test has Cepheid Disclaimer been authorized by FDA under an EUA for use by Cepheid Disclaimer authorized laboratories; this test has been Cepheid Disclaimer authorized only for the simultaneous qualitative Cepheid Disclaimer detection and differentiation of nucleic acids from Cepheid Disclaimer SARS-CoV-2, influenza A, influenza B, and Cepheid Disclaimer respiratory syncytial virus (RSV), and not for any Cepheid Disclaimer other viruses or pathogens; and this test is only Cepheid Disclaimer authorized for the duration of the declaration that Cepheid Disclaimer circumstances exist justifying the authorization of Cepheid Disclaimer emergency use of in vitro diagnostic tests for Cepheid Disclaimer detection and/or diagnosis of COVID-19 under Cepheid Disclaimer Section 564(b)(1) of the Act, 21 U.S.C. 360bbb- Cepheid Disclaimer 3(b)(1), unless the authorization is terminated or Cepheid Disclaimer revoked sooner. PERFORMED BY: [place] [address] PATHOLOGIST INSIDE SALES TRAINER ORESTES SRINIVASAN M.D. Normal [facility] Comment on above: Performed By: #### C BC, PT, PTT, CMP, BNP, HS TROP #### [facility] [address] [place] [address] Cepheid COVID PCR Negativeon 03-04-2022 SARS-CoV-2 (COVID-19) RNA SOURAV+probe Ql (Unsp spec) Negative Normal Negative [facility] Comment on above: Result Comment: This is a duplicate Cepheid Xpert Xpress CoV- 2/Flu/RSV Plus RNA by RT-PCR result to be used for statistical tracking purpose only. PERFORMED BY: [place] [address] PATHOLOGIST INSIDE SALES TRAINER ORESTES SRINIVASAN M.D. Performed By: #### C BC, PT, PTT, CMP, BNP, HS TROP #### [address] [place] [address] [place] Complete Blood Count Auto Di ffon 03-04-2022 Basophils (Bld) [#/Vol] 0.1 10*3/uL Normal 0.0-0.2 [facility] Comment on above: Result Comment: PERF ORMED BY: [place] [address] PATHOLOGIST INSIDE SALES TRAINER ORESTES SRINIVASAN M.D. Performed By: #### C BC, PT, PTT, CMP, BNP, HS TROP #### [address] Basophils/100 WBC (Bld) 1.5 % Normal . F [facility] Comment on above: Performed By: #### C BC, PT, PTT, CMP, BNP, HS TROP #### [address] Eosinophils (Bld) [#/Vol] 0.1 10*3/uL Normal 0.0-0.45 [facility] Comment on above: Performed By: #### C BC, PT, PTT, CMP, BNP, HS TROP #### [address] Eosinophils/100 WBC (Bld) 1.7 % Normal . [facility] Comment on above: Performed By: #### C BC, PT, PTT, CMP, BNP, HS TROP #### [address] Erythrocyte distribution wid th (RBC) [Ratio] 14.4 % Normal 12.0-14.8 [facility] Comment on above: Performed By: #### C BC, PT, PTT, CMP, BNP, HS TROP #### [address] Hematocrit (Bld) [Volume fraction] 45.9 % Normal 38.8-50.0 [facility] Comment on above: Performed By: #### C BC, PT, PTT, CMP, BNP, HS TROP #### [place] [address] [place] Hemoglobin (Bld) [Mass/Vol] 14.9 g/dL Normal 13.0-17. 0 [facility] Comment on above: Performed By: #### C BC, PT, PTT, CMP, BNP, HS TROP #### [address] Lymphocytes (Bld) [#/Vol] 1.1 10*3/uL Normal 1.00-4.8 [facility] Comment on above: Performed By: #### C BC, PT, PTT, CMP, BNP, HS TROP #### [address] Lymphocytes/100 WBC (Bld) 27.9 % Normal . [facility] Comment on above: Performed By: #### C BC, PT, PTT, CMP, BNP, HS TROP #### [address] MCH (RBC) [Entitic mass] 29.4 pg Normal 27.5-35.2 [facility] Comment on above: Performed By: #### C BC, PT, PTT, CMP, BNP, HS TROP #### [address] MCV (RBC) [Entitic vol] 90.7 fL Normal 83.5-101 F [facility] Comment on above: Performed By: #### C BC, PT, PTT, CMP, BNP, HS TROP #### [address] Mean Corpuscular HGB Conc 32.4 g/dL Low 32.5-35.6 [facility] Comment on above: Performed By: #### C BC, PT, PTT, CMP, BNP, HS TROP #### [place] [address] [place] Monocytes (Bld) [#/Vol] 0.8 10*3/uL Normal 0.0-0.8 [facility] Comment on above: Performed By: #### C BC, PT, PTT, CMP, BNP, HS TROP #### [place] [address] [place] Monocytes/100 WBC (Bld) 20.2 % Normal . [facility] Comment on above: Performed By: #### C BC, PT, PTT, CMP, BNP, HS TROP #### [facility] [address] Neutrophils (Bld) [#/Vol] 2.0 10*3/uL Normal 1.8-7.7 [facility] Comment on above: Performed By: #### C BC, PT, PTT, CMP, BNP, HS TROP #### [facility] [address] Neutrophils/100 WBC (Bld) 48.7 % Normal . [facility] Comment on above: Performed By: #### C BC, PT, PTT, CMP, BNP, HS TROP #### [address] Nucleated RBC/100 WBC (Bld) [Ratio] 0.1 % Normal 0-0.5 [facility] Comment on above: Performed By: #### C BC, PT, PTT, CMP, BNP, HS TROP #### [facility] [address] Platelet mean volume (Bld) [Entitic vol] 7.7 fL Normal 6.6-10.1 [facility] Comment on above: Performed By: #### C BC, PT, PTT, CMP, BNP, HS TROP #### [facility] [address] [place] [address] [place] Platelets (Bld) [#/Vol] 228 10*3/uL Normal 150-450 [facility] Comment on above: Performed By: #### C BC, PT, PTT, CMP, BNP, HS TROP #### [facility] [address] [place] [address] [place] RBC (Bld) [#/Vol] 5.06 10*6/uL Normal 3.90-5.60 [facility] Comment on above: Performed By: #### C BC, PT, PTT, CMP, BNP, HS TROP #### [place] [address] [place] WBC (Bld) [#/Vol] 4.0 10*3/uL Low 4.5-11.0 [facility] Comment on above: Performed By: #### C BC, PT, PTT, CMP, BNP, HS TROP #### [address] Comprehensive Metabolic Pane maynor 03-04-2022 Albumin [Mass/Vol] 3.7 g/dL Normal 3.2-5.5 [facility] Comment on above: Performed By: #### C BC, PT, PTT, CMP, BNP, HS TROP #### [facility] [address] Albumin/Globulin [Mass ratio] 1.3 {ratio} Normal [facility] Comment on above: Performed By: #### C BC, PT, PTT, CMP, BNP, HS TROP #### [address] ALP [Catalytic activity/Vol] 61 U/L Normal 32-92 [facility] Comment on above: Performed By: #### C BC, PT, PTT, CMP, BNP, HS TROP #### [address] ALT [Catalytic activity/Vol] 23 U/L Normal 10-60 [facility] Comment on above: Performed By: #### C BC, PT, PTT, CMP, BNP, HS TROP #### [address] Anion gap [Moles/Vol] 11.5 mmol/L Normal 6.0-15.0 [facility] Comment on above: Performed By: #### C BC, PT, PTT, CMP, BNP, HS TROP #### [address] AST [Catalytic activity/Vol] 23 U/L Normal 10-42 [facility] Comment on above: Performed By: #### C BC, PT, PTT, CMP, BNP, HS TROP #### [address] Bilirubin [Mass/Vol] 0.7 mg/dL Normal 0.3-1.2 [facility] Comment on above: Performed By: #### C BC, PT, PTT, CMP, BNP, HS TROP #### [address] Calcium [Mass/Vol] 9.0 mg/dL Normal 8.2-10.2 [facility] Comment on above: Performed By: #### C BC, PT, PTT, CMP, BNP, HS TROP #### [address] Chloride [Moles/Vol] 102 mmol/L Normal 95-114 [facility] Comment on above: Performed By: #### C BC, PT, PTT, CMP, BNP, HS TROP #### [address] CO2 [Moles/Vol] 30.1 mmol/L High 22.0-30.0 [facility] Comment on above: Performed By: #### C BC, PT, PTT, CMP, BNP, HS TROP #### [address] Creatinine [Mass/Vol] 0.83 mg/dL Normal 0.64-1.27 [facility] Comment on above: Performed By: #### C BC, PT, PTT, CMP, BNP, HS TROP #### [address] Creatinine Clr Calc Pharmacy 137.49 [facility] Comment on above: Result Comment: PERF ORMED BY: [place] [address] PATHOLOGIST [employer] ORESTES SRINIVASAN M.D. Performed By: #### C BC, PT, PTT, CMP, BNP, HS TROP #### [address] Estimated GFR ( Pretty > 60 Normal [facility] Comment on above: Result Comment: GFR estimated reference range: According to KDOQI guidelines, <60 ml/min/1.73m2 is sufficient to diagnose a patient with chronic kidney disease. Performed By: #### C BC, PT, PTT, CMP, BNP, HS TROP #### [facility] [address] [place] [address] [place] Estimated GFR (Non- Am > 60 Normal [facility] Comment on above: Performed By: #### C BC, PT, PTT, CMP, BNP, HS TROP #### [facility] [address] Globulin (S) [Mass/Vol] 2.9 g/dL Normal F [facility] Comment on above: Performed By: #### C BC, PT, PTT, CMP, BNP, HS TROP #### [facility] [address] Glucose [Mass/Vol] 121 mg/dL High 70-100 [facility] Comment on above: Result Comment: [facility] Glucose Reference Range is dependent on time and content of last meal. Glucose of more than 200 mg/dL in a nonstressed, ambulatory subject supports the diagnosis of Diabetes Mellitus. ADA recommended reference range Performed By: #### C BC, PT, PTT, CMP, BNP, HS TROP #### [facility] [address] Potassium [Moles/Vol] 4.6 mmol/L Normal 3.5-5.1 [facility] Comment on above: Performed By: #### C BC, PT, PTT, CMP, BNP, HS TROP #### [facility] [address] [place] [address] [place] Protein [Mass/Vol] 6.6 g/dL Normal 6.1-7.9 [facility] Comment on above: Performed By: #### C BC, PT, PTT, CMP, BNP, HS TROP #### [facility] [address] [place] [address] [place] Sodium [Moles/Vol] 139 mmol/L Normal 136-146 [facility] Comment on above: Performed By: #### C BC, PT, PTT, CMP, BNP, HS TROP #### [facility] [address] [place] [address] [place] Urea nitrogen [Mass/Vol] 12 mg/dL Normal 9-23 [facility] Comment on above: Performed By: #### C BC, PT, PTT, CMP, BNP, HS TROP #### [place] [address] [place] ECG 12 lead ECGon 03-04-2022 ECG 12 lead ECG [facility] [place] [address] Electrocardiograph Report Signed Patient: Clayton Parekh MR#: [id number] 4 : 1965 Acct:[id number] Age/Sex: 56 / M ADM Date: 03/05/22 Loc: 4P Room: [address] [place] [address] Type: DIS IN Attending Dr: Srikanth Whiteside DO Ordering Provider: Catracho Syed DO Date of Service: 03/04/2206/24/811 ECG/ECG 12 lead ECG: Arrhythmia/Palpitations Copies to: Test Reason : Blood Pressure : / mmHG Vent. Rate : 140 BPM Atrial Rate : 280 BPM P-R Int : 000 ms QRS Dur : 082 ms QT Int : 272 ms P-R-T Axes : 265 -70 062 degrees QTc Int : 415 ms Atrial flutter with 2:1 AV conduction Pulmonary disease pattern Left anterior fascicular block Marked ST abnormality, possible inferior subendocardial injury Abnormal ECG When compared with ECG of 03-DEC-2010 10:50, Significant changes have occurred Confirmed by Catracho Syed DO ([id number]) on 03/04/2022 3:20:19 PM Referred By: Electronically Signed By:Cartacho Syed DO Transcribed By: MUS Signed By Catracho Syed DO 2 1520 Normal [facility] ECH echo transthoracicon ECH echo transthoracic [facility] [address] Echocardiogram Signed Patient: Clayton Parekh MR#: [id number] 4 : 1965 Acct:[id number] Age/Sex: 56 / M ADM Date: 03/05/22 Loc: Room: [address] [place] [address] Type: DIS IN Attending Dr: Srikanth Whiteside DO Ordering Provider: Srikanth Whiteside DO Date of Service: 03/04/2206/24/1115 ECH/ECH echo transthoracic: new finding of Atrial flutter Copies to: DO Jenny Dye MD Weight: 301 lb Performed By: Stephanie Hollingsworth RDCS BSA: 2.5 m2 BP: 117/75 mmHg HR: 76 Reason For Study: new finding of Atrial flutter History: DVT. COVID-19. Lymphedema. Interpretation Summary The left ventricular wall motion is normal. Mild concentric left ventricular hypertrophy. Ejection Fraction = 50-55%. The LV ejection fraction is low normal . The left atrium appears moderately dilated. Mild aortic root dilatation. The aortic root is 3.9 cm In atrial flutter throughout the study There is no comparison study available. Procedure/Quality: A two-dimensional transthoracic echocardiogram with color flow and Doppler was performed. The study was technically fair in quality. Left Ventricle: The left ventricular size is normal. Mild concentric left ventricular hypertrophy. Ejection Fraction = 50-55%. The LV ejection fraction is low normal . The left ventricular wall motion is normal. Left Atrium: The left atrium appears moderately dilated. Right Atrium: The right atrium appears normal in size. Right Ventricle: The right ventricular size, thickness and function are normal. Aortic Valve: The aortic valve is normal in structure and function. No aortic regurgitation is present. Mitral Valve: The mitral valve is normal in structure and function. There is no mitral regurgitation noted. Tricuspid Valve: The tricuspid valve is normal in structure and function. No tricuspid regurgitation. Pulmonic Valve: The pulmonic valve is normal in structure and function. Arteries: Mild aortic root dilatation. The aortic root is 3.9 cm. Pericardium/Pleura: No pericardial effusion seen. There is no pleural effusion. IVC/Hepatic Viens: The inferior vena cava is normal in size, with a normal collapsibility index. Miscellaneous: In atrial flutter throughout the study. Measurements with Normals IVSd: 1.3 cm (0.7-1.1 cm)LVIDd: 4.7 cm (3.7-5.4 cm) LVPWd: 1.5 cm (0.7-1.1 cm)LVIDs: 2.7 cm (2.3-3.6 cm) LA dimension: 4.9 cm (2.3-4.0 cm)Ao root diam: 3.9 cm(2.0-3.6 cm) asc Aorta Diam: 4.1 cm(2.1-3.4cm) Doppler with Normals RVSP(TR): 26.9 mmHg (18-35mmHg) LV V1 max: 95.6 cm/sec(0.7-1.7m/s)MV E max joseph: 97.5 cm/sec(0.8-1.3m/s) MMode/2D Measurements Calculations TAPSE: 2.2 cm FS: 43.7 % Ao root area: LVOT diam: 2.6 cm RV S Joseph: EDV(Teich): 11.9 cm2 LVOT area: 5.4 cm2 11.3 cm/sec 104.4 ml ESV(Teich): 26.3 ml EF(Teich): 74.8 % __ LVLd ap4: 8.2 cm SV(MOD-sp4): LAV(MOD-sp4): LA A2 area: 24.6 cm2 EDV(MOD-sp4): 71.9 ml 62.6 ml 130.0 ml LAV(MOD-sp2): LA A4 area: 23.8 cm2 LVLs ap4: 7.0 cm 74.1 ml LA length (vol): ESV(MOD-sp4): 7.2 cm 58.1 ml LA vol: 69.1 ml EF(MOD-sp4): 55.3 % LA vol index: 27.9 ml/m2 Doppler Measurements Calculations MV dec time: MV max PG: E/E' lat: 14.2 MV dec slope: 0.14 sec 32.0 mmHg E/E' med: 9.0 710.0 cm/sec2 __ Ao V2 max: LV V1 max PG: MR max joseph: TV max P.0 mmHg 137.5 cm/sec 3.7 mmHg 282.3 cm/sec Ao max P.6 mmHgLV V1 mean PG: MR max PG: Ao mean P.1 mmHg 31.9 mmHg 4.4 mmHg LV V1 mean: Ao V2 mean: 70.5 cm/sec 98.8 cm/sec LV V1 VTI: 18.9 cm Ao V2 VTI: 24.7 cm BHAVNA(I,D): 4.1 cm2 BHAVNA(V,D): 3.7 cm2 __ TR max joseph: 217.2 cm/sec TR max P.9 mmHg RAP systole: 8.0 mmHg Transcribed By: SCV Performed At: 03/04/22 1348 Signed By: Jenny Hogan MD 03/04/22 1753 [facility] Partial Thromboplastin Timeo n 03-04-2022 aPTT Coag (Bld) [Time] 27.2 s Normal 25.1-36.5 [facility] Comment on above: Result Comment: PERF ORMED BY: [place] [address] PATHOLOGIST [employer] TRAIN[employer] ORESTES SRINIVASAN M.D. Performed By: #### C BC, PT, PTT, CMP, BNP, HS TROP #### [facility] [address] [place] [address] Prothrombin Time INRon 03-04 INR Coag (PPP) [Relative time] 1.0 {INR} [facility] Comment on above: Result Comment: INR Therapeutic Range A) Pre- and Peroperative OAT started two weeks before surgery. NOT HIP SURGERY: 1.5 - 2.5 HIP SURGERY: 2 - 3 B) Primary and secondary prevention of venous THROMBOSIS: 2 - 3 C) Active venous thrombosis, pulmonary embolism and prevention of recurrent venous thrombosis: 2 - 3 D) Prevention of arterial thromboembolism including patients with mechanical heart valves: 3 - 4.5 Performed By: #### C BC, PT, PTT, CMP, BNP, HS TROP #### [facility] [address] [place] [address] PT Coag (PPP) [Time] 11.7 s Normal 9.0-12.9 [facility] Comment on above: Performed By: #### C BC, PT, PTT, CMP, BNP, HS TROP #### [address] Thyroid Stimulating Hormoneo n 03-04-2022 TSH Qn 2.86 m[IU]/L Normal 0.45-5.33 [facility] Comment on above: Order Comment: ADD O N IS QNS.. Result Comment: PERF ORMED BY: [place] [address] PATHOLOGIST [employer] TRAIN[employer] ORESTES SRINIVASAN M.D. Performed By: #### T SH3 #### [address] Troponin I High Sensitivityo n 03-04-2022 Troponin I High Sensitivity 8 pg/mL Normal 0-20 [facility] Comment on above: Result Comment: PERF ORMED BY: [place] [address] PATHOLOGIST [employer] TRAIN[employer] ORESTES SRINIVASAN M.D. Performed By: #### C BC, PT, PTT, CMP, BNP, HS TROP #### [address] XR chest 1V portableon 03-04 XR chest 1V portable [facility] [place] [address] [place] [address] XRay Report Signed Patient: Clayton Parekh MR#: [id number] 4 : 1965 Acct:[id number] Age/Sex: 56 / M ADM Date: 03/04/22 Loc: ER Room: Type: [facility] ER Attending Dr: Copies to: Catarcho Syed DO Ordering Provider: Catracho Syed DO Date of Service: 03/04/22 XR/XR chest 1V portable: Arrhythmia/Palpitations XR chest 1V portable 03/04/2022 8:13 AM SIGNS AND SYMPTOMS: Shortness of breath, fatigue, dizziness, palpitations PROTOCOL: Frontal radiograph of the chest COMPARISON: None FINDINGS: The trachea is midline. The heart and mediastinal structures are within normal limits. The lung parenchyma is clear. The bony thorax is intact. XR/XR chest 1V portable IMPRESSION: No acute cardiopulmonary pathology. Impression dictated by: Clayton Nathan M.D.03/04/2022 9:23 AM Dictation Location: [place] [address] Transcribed By: ERIC 03/04/22922 Dictated By: Clayton Nathan II, MD 03/04/22922 Signed By: 03/04/22922 [facility] VC CONSULT FOLLOWUPon 2021 VC CONSULT FOLLOWUP Patient: OANH PAREKH Exam Date: 07/16/2021 : 1965 Gender:M Ordering : DR ROSARIO GLEASON M.D. Admission #: [id number] Family : Order #: [id number] CLICK HERE TO VIEW EXAM RADIOLOGY REPORT PROCEDURE: VEIN CENTER CONSULTATION FOLLOWUP VEIN CENTER - OFFICE VISIT FOLLOW UP COMPARISON: VC CONSULT FOLLOWUP, 06/25/2021. PROGRESS NOTES: The patient reports marked improvement in right leg pain and swelling after starting Xarelto for right deep femoral and posterior tibial vein thrombus. The patient has worn knee high compression stockings 40-50 mm. The patient has followed our recommendations to walk 20-30 minutes once or twice per day since the procedure. Physical exam demonstrates moderate bilateral subcutaneous edema below the knee consistent with his known lymphedema. This looks significantly improved from prior exams and is likely related to treatments at the [facility] lymphedema Clinic. No areas of erythema or warmth to suggest cellulitis or thrombophlebitis. No active ulceration. Review of the ultrasound performed the same day demonstrates no deep vein thrombus. The previously noted right deep femoral and posterior tibial vein thrombus is not seen on the current exam. At the exam I mistakenly told the patient he could stop his Xarelto blood thinner, our office will call today, the patient should continue his Xarelto for 3 months before discontinuing. IMPRESSION: 1. Interval resolution of previous identified right leg deep vein thrombus PLAN: Continue Xarelto 21 milligrams p.o. B.I.D. for total of 3 months Nurse notes, history and physical were reviewed and confirmed, see attached forms. The nurse was present throughout the physical exam and consultation Dictated by: Rosario Gleason MD on 07/16/2021 at 15:47 Approved by: Rosario Gleason MD on 07/16/2021 at 15:50 Normal [facility] VC EXT VENOUS RT LIMITEDon 0 07-16-2021 VC EXT VENOUS RT LIMITED Patient: CLAYTON PAREKH Exam Date: 07/16/2021 : 1965 Gender:M Ordering : DR ROSARIO GLEASON M.D. Admission #: [id number] Family : Order #: [id number] CLICK HERE TO VIEW EXAM RADIOLOGY REPORT PROCEDURE: VEIN CENTER EXTREMITY VENOUS RIGHT LIMITED COMPARISON: VC EXT VENOUS RT LIMITED, 06/25/2021. VC EXT VENOUS RT LIMITED, 04/13/2019. INDICATIONS: Pain co-occurrent and due to varicose veins of bilateral legs I83.813 TECHNIQUE: Lower extremity corrigan scale and Duplex Doppler evaluation of the deep venous system from the inguinal ligament through the calf veins. FINDINGS: REGION: Right lower extremity. THROMBI: Negative for DVT. COMPRESSIBILITY: Normal compressibility of the visualized veins FLOW: Normal flow in the visualized veins OTHER: Limited visualization due to edema and body habitus. *Exam performed in accordance with [facility] practice guidelines- Peripheral venous ultrasound, July 27, 2009. CONCLUSION: No deep vein thrombus. The previously noted right deep femoral and posterior tibial vein thrombus is not definitively seen Dictated by: Rosario Gleason MD on 07/16/2021 at 15:37 Approved by: Rosario Gleason MD on 07/16/2021 at 15:47 Normal [facility] VC CONSULT FOLLOWUPon 2021 VC CONSULT FOLLOWUP Patient: OANH PAREKH Exam Date: 06/25/2021 : 1965 Gender:M Ordering : DR ROSARIO GLEASON M.D. Admission #: [id number] Family : Order #: [id number] CLICK HERE TO VIEW EXAM RADIOLOGY REPORT PROCEDURE: VEIN CENTER CONSULTATION FOLLOWUP VEIN CENTER - OFFICE VISIT FOLLOW UP COMPARISON: None. PROGRESS NOTES: The patient reports that increased swelling and tenderness of right leg. Ultrasound performed today shows short segment of thrombus within the right thigh deep femoral vein, and thrombosis of the posterior tibial vein. Evaluation is slightly limited due to extensive edema. IMPRESSION: Deep vein thrombus within the right lower extremity. Patient will be placed on Xarelto 21 mg p.o. 2 times per day for 21 days Dictated by: Keila Leon M.D. on 06/25/2021 at 16:52 Approved by: Keila Leon M.D. on 06/25/2021 at 16:55 Normal [facility] VC EXT VENOUS RT LIMITEDon 0 06-25-2021 VC EXT VENOUS RT LIMITED Patient: CLAYTON PAREKH Exam Date: 06/25/2021 : 1965 Gender:M Ordering : DR ROSARIO GLEASON M.D. Admission #: [id number] Family : Order #: [id number] CLICK HERE TO VIEW EXAM RADIOLOGY REPORT PROCEDURE: VEIN CENTER EXTREMITY VENOUS RIGHT LIMITED COMPARISON: VC EXT VENOUS RT LIMITED, 04/13/2019. INDICATIONS: Phlebitis and thrombophlebitis of superficial veins of right lower extremity I80.01 TECHNIQUE: Lower extremity corrigan scale and Duplex Doppler evaluation of the deep venous system from the inguinal ligament through the calf veins. FINDINGS: REGION: Right lower extremity. THROMBI: Positive for DVT. Partial thrombus deep femoral vein proximal thigh. Thrombosed posterior tibial veins COMPRESSIBILITY: Non-compressible segments. FLOW: Areas of no flow. OTHER: Limited visualization of calf veins due to swelling. Incompetent varicose vein right posterior proximal calf measures 4.1 mm with 0.9 seconds reflux. Incompetent varicose vein proximal calf medial measures 5.0 mm with 1.4 seconds of reflux Incompetent varicose vein posterior distal thigh measures 3.5 mm with 0.8 seconds of reflux. CONCLUSION: 1. Small segment of partially occlusive thrombus within the right deep femoral vein 2. Deep vein thrombosis of the posterior tibial veins. Dictated by: Keila Leon M.D. on 06/25/2021 at 15:38 Approved by: Keila Leon M.D. on 06/25/2021 at 16:52 Normal [facility] CULTURE SPUTUMon 05-14-2021 CULTURE SPUTUM Isolate 1 Evelyn albicans Growth of Normal [facility] l Comment on above: Performed By: #### S PUTCX #### [facility] [address] [place] [address] Dr. Cheyenne Willard XR CHEST 2 Von 05-11-2021 XR CHEST 2 V EXAM: XR CHEST 2 V HISTORY: Dyspnea on exertion . COMPARISON: 05/28/2020 TECHNIQUE: Abdominal and lateral chest FINDINGS: Heart and vascularity are unremarkable. Lungs are expanded and free of focal infiltrates. Incidentally noted is an azygous lobe which is a normal variation. Spondylosis of the spine is noted. IMPRESSION: No acute heart or lung disease identified. Electronically authenticated by: ROSARIO HIGUERA Date: 2021-05-11 17:17 Normal [facility] CTA ABD/PELV W IVCONon 02-07 CTA ABD/PELV W IVCON * * *Final Report* * * DATE OF EXAM: Feb 08 2020 1:32PM [facility] 0134 - CTA ABD/PELV W IVCON / PROCEDURE REASON: multiple diagnoses * * * * Physician Interpretation * * * * CT ANGIOGRAM OF THE ABDOMEN AND PELVIS HISTORY: 54 year old male?with PMH of obesity (BMI 42), hypothyroidism (on Synthroid), and chronic venous insufficiency with varicose veins. Evaluated at OSH and underwent bilateral GSV EVLA, right AAGSV EVLA, left SSV EVLA, multiple rounds of Varithena to varicosities, sclerotherapy in late 2018. Procedures helped for a few months, but symptoms have since returned. Presently wearing knee high compression. OSH venous duplex from 12/26/19 - ablated GSV, no evidence of DVT. 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 Risk factors for secondary lymphedema include CVI and weight. CTV requested to rule out obstruction. TECHNIQUE: High-resolution contrast-enhanced helical CT of the abdomen and pelvis was performed, timed to the venous phase (120s and 180s delay). 3-D processing was performed by the physician on an independent work station, with MIP and volume-rendering techniques. Total of 120 ml of Omnipaque 350 was injected IV during the examination. The study was performed without oral contrast. The patient tolerated the injection without complications. Dose-Length Product (DLP): 1789 mGy*cm. CT Dose Reduction Employed: Automated exposure control (AEC) RESULT: COMPARISON: No prior studies are available for comparison. ABDOMEN and PELVIS: Venous system: IVC: Patent. Hepatic veins: Patent Renal veins: Right: Patent Left: Patent Pelvic veins: LEFT: The common, internal, external iliac, femoral veins are patent. RIGHT: The common, internal, external iliac, femoral veins are patent. Mesenteric veins: The portal, splenic, superior mesenteric veins are patent. No filling defects noted. ARTERIAL: Within the limitations of the venous phase study, Images of the aorta demonstrate moderate atherosclerotic change without significant focal stenosis or aneurysm Celiac artery demonstrates no significant focal stenosis. Superior mesenteric artery demonstrates no significant focal stenosis. Inferior mesenteric artery demonstrates no significant focal stenosis. There is a single right renal artery which is patent with no significant focal stenosis. There are two left renal arteries, which appear patent without any no significant focal stenosis. Iliacs: Bilateral common iliac, internal iliac, external iliac arteries are patent with moderate atherosclerotic changes along the common iliac arteries. Femoral: Bilateral common femoral arteries are patent with moderate atherosclerotic changes along the left common femoral artery. SFA and profunda arteries: Bilateral visualized segments are patent with no significant stenosis. NONVASCULAR FINDINGS: Images through the lung bases demonstrate no acute pulmonary parenchymal abnormality or pleural effusion. An approx. 1.3 cm low attenuation lesion noted in the segment IV A/B, likely simple cyst. Pancreas, spleen, bilateral adrenal glands, right kidney, and left kidney are unremarkable. No evidence of obstruction or hydronephrosis. Small volume para-aortic and periportal lymphadenopathy. Bilateral small volume inguinal lymphadenopathy. There is no significant free fluid. Diverticular disease of the large bowel. Appendicolith/fecalith noted. Visualized bony structures are unremarkable. IMPRESSION: Patent mesenteric and systemic veins of the abdomen and pelvis. Grossly patent arterial vasculature of the abdomen and pelvis. Aircraft Body Repairer[facility] Transcribe Date/Time: Feb 08 2020 2:06P Dictated by : SUSAN YUAN MD This examination was interpreted and the report reviewed and electronically signed by: SUSAN YUAN MD on Feb 08 2020 3:26PM EST [id number] [facility] PROGRESSon 02-08-2020 PROGRESS HNO ID: [id number] Author: MCKENZIE Sevilla (Ct) Service: Radiology Author Type: Diaphragm Builder Type: Progress Notes Filed: 02/08/2020 1:35 PM Note Text: Radiology Service Progress Note PATIENT NAME: Clayton Parekh DATE OF SERVICE: February 08, 2020 TIME: 1:34 PM PATIENT IDENTITY VERIFICATION COMPLETED USING TWO (2) IDENTIFIERS: Name and Date of confirmed by patient verbally and Name and Date of confirmed by identification band. FALL SCREENING: Has the patient had 2 falls in the last year or 1 fall with injury or currently using an Ambulatory Assistive Device (Walker, Cane, Wheelchair, Crutches, etc.)? No PATIENT GENDER DATA: Male PATIENT RELEVANT IMPLANT DATA REVIEWED: Yes RADIOLOGY DEPARTMENT: CT; Exam(s) Completed: CTA Abdomen Pelvis PERIPHERAL IV DATA: Site assessment: Clean,Dry and Intact, Site disposition Discontinued SIGNED BY: MCKENZIE Sevilla February 08, 2020 1:34 PM [facility] Vital Signs Date Time Vital Sign Value Performing Clinician Facility 05-29-2022 12:41-0500 Diastolic blood pressure 90 mm[Hg] Parth Pavon [facility] 05-29-2022 12:41-0500 Heart rate 55 /min Parth Pavon [facility] 05-29-2022 12:41-0500 Mean blood pressure 107 mm[Hg] Parth Pavon [facility] 05-29-2022 12:41-0500 Respiratory rate 16 /min Parth Pavon [facility] 05-29-2022 12:41-0500 SaO2% (BldA) [Mass fraction] 98 % Parth Pavon [facility] 05-29-2022 12:41-0500 Systolic blood pressure 142 mm[Hg] Parth Pavon [facility] 05-29-2022 11:30-0500 Diastolic blood pressure 83 mm[Hg] Parth Pavon [facility] 05-29-2022 11:30-0500 Heart rate 62 /min Parth Pavon [facility] 05-29-2022 11:30-0500 Mean blood pressure 96 mm[Hg] Parth Pvaon [facility] 05-29-2022 11:30-0500 Respiratory rate 18 /min Parth Librado [facility] 05-29-2022 11:30-0500 SaO2% (BldA) [Mass fraction] 94 % Parthabel Paovn [facility] 05-29-2022 11:30-0500 Systolic blood pressure 123 mm[Hg] Parth Pavon [facility] 05-29-2022 10:54-0500 Body temperature 98.6 [degF] Parthabel Pavon [facility] 05-29-2022 10:54-0500 Diastolic blood pressure 78 mm[Hg] Parth Pavon [facility] 05-29-2022 10:54-0500 Heart rate 76 /min Parth Pavon [facility] 05-29-2022 10:54-0500 Respiratory rate 16 /min Parthabel Pavon [facility] 05-29-2022 10:54-0500 SaO2% (BldA) [Mass fraction] 95 % Parthabel Pavon [facility] 05-29-2022 10:54-0500 Systolic blood pressure 121 mm[Hg] Parth Pavon [facility] 05-29-2022 10:39-0500 Body temperature 98.06 [degF] Parth Pavon [facility] 05-29-2022 10:39-0500 Heart rate 74 /min Parth Pavon [facility] 04-02-2022 09:11-0500 Body height 177.8 cm Monica Cano APRN.THREAD GRINDER TOOL Work Phone: [facility] 04-02-2022 09:11-0500 Body weight 129.87 kg Monica Stewartarland PRODUCTION COOK.THREAD GRINDER TOOL Work Phone: [facility] 04-02-2022 09:11-0500 Diastolic blood pressure 62 mm[Hg] Monica Cano PRODUCTION COOK.THREAD GRINDER TOOL Work Phone: [facility] 04-02-2022 09:11-0500 Heart rate 78 /min Monica Cano PRODUCTION COOK.THREAD GRINDER TOOL Work Phone: [facility] 04-02-2022 09:11-0500 Systolic blood pressure 120 mm[Hg] Monica Cano PRODUCTION COOK.THREAD GRINDER TOOL Work Phone: [facility] 03-12-2022 08:43-0500 Diastolic blood pressure 83 mm[Hg] Rica Erwin MD Work Phone: [facility] 03-12-2022 08:43-0500 Heart rate 139 /min Rica Erwin MD Work Phone: [facility] 03-12-2022 08:43-0500 Respiratory rate 20 /min Rica Erwin MD Work Phone: [facility] 03-12-2022 08:43-0500 SaO2% (BldA) [Mass fraction] 97 % Rica Erwin MD Work Phone: [facility] 03-12-2022 08:43-0500 Systolic blood pressure 119 mm[Hg] Rica Erwin MD Work Phone: [facility] 03-12-2022 08:39-0500 Body height 177.8 cm Rica Erwin MD Work Phone: [facility] 03-12-2022 08:39-0500 Body weight 133.36 kg Rica Erwin MD Work Phone: [facility] Encounters Encounter Date Encounter Type Care Provider Facility Start: 04-28-2023 ambulatory Callum GLEZ Facility :[facility] Start: 04-19-2023 ambulatory Parth Pavon Facility:[facility] Start: 03-22-2023 End: 03-22-2023 Office outpatient new 45 minutes Tommy Barton MD Work Phone: [facility] Comment on above: Primary osteoarthrit is of both knees (Primary Dx); Left knee pain, unspecified chronicity Start: 07-03-2022 Refill Oneida mendieta MD Work Phone: Cardiology Comment on above: Refill Request Start: 05-29-2022 End: 06-02-2022 ambulatory UNKNOWN PROVIDER Facility:[facility] Start: 05-29-2022 End: 05-29-2022 Emergency department patient visit Parth Pavon Facility[place] Start: 05-29-2022 End: 05-29-2022 ambulatory Et3 Resource [facility] Emergenc y Triage, Treat and Transport Start: 05-29-2022 End: 05-29-2022 Emergency department patient visit Parth Pavon [facility] Emergency Triage, Treat and Transport Comment on above: Arrived Start: 04-07-2022 End: 04-08-[address] JENNY MUÑOZ Facility: Start: 04-02-2022 End: 04-02-2022 ambulatory JENNY MUÑOZ Facility:[facility] Start: 04-02-2022 End: 04-02-2022 Patient encounter procedure Monica Cano APRN.THREAD GRINDER TOOL Work Phone: Cardiology Comment on above: Typical atrial flutt er (HCC) (Primary Dx); Primary hypertension; Personal history of DVT (deep vein thrombosis); Lymphedema; Acquired hypothyroidism Start: 03-31-2022 Orders Only Monica Gage nd PRODUCTION COOK.THREAD GRINDER TOOL Work Phone: Cardiology Comment on above: Atrial flutter, unsp ecified type (HCC) (Primary Dx) Start: 03-17-2022 End: 03-17-2022 Evaluation and management of inpatient JENNY MUÑOZ Facility:[facility] Start: 03-16-2022 End: 03-16-2022 ambulatory JENNY MUÑOZ Facility:[facility] Start: 03-16-2022 End: 03-16-2022 Patient encounter procedure Ip Transesophageal Echo Cardiology Comment on above: Persistent atrial fi brillation (HCC) (Primary Dx) Start: 03-12-2022 End: 03-17-2022 Evaluation and management of inpatient JENNY Chinchilla WANDA Facility:[facility] Start: 03-12-2022 End: 03-13-2022 ambulatory JENNY HEATONJose Facility:[facility] Start: 03-12-2022 End: 03-12-2022 Subsequent hospital visit by physician Xr Chest Main J1 Work Phone: Radiology Comment on above: Atrial flutter, unsp ecified type (HCC) [I48.92] Start: 03-12-2022 End: 03-13-2022 ambulatory JENNY HEATONJose Facility:[facility] Start: 03-12-2022 End: 03-12-2022 Patient encounter procedure Rica Erwin MD Work Phone: Cardiology Comment on above: Atrial flutter, unsp ecified type (HCC) (Primary Dx); Acquired hypothyroidism; Family history of early CAD; Aortic dilatation (HCC); Shortness of breath; Acute cough Start: 03-06-[address] Jenny Hogan Facility:[id number] Start: 03-05-2022 ambulatory Jenny Muñoz Fac ility:[facility] Start: 03-05-2022 End: 03-06-2022 Evaluation and management of inpatient Kya Mischler Facility:[facility] Start: 03-05-[address] Jenny Hogan Facility:[id number] Start: 03-04-2022 ambulatory Jenny Francis ility:[id number] Start: 07-16-2021 End: 07-17-[address] ROSARIO GLEASON Facility:[facility] Start: 06-25-2021 End: 06-26-[address] ROSARIO GLEASON Facility:[facility] Start: 05-14-2021 End: 05-14-[address] JENNY MUÑOZ Facility:[facility] Start: 05-11-2021 End: 05-12-[address] JENNY MUÑOZ Facility:[facility] Procedures Date Procedure Procedure Detail Performing Clinician Start: 03-22-2023 Arthrocentesis aspir &/inj major jt/bursa w/o us Blanka Ivey PA-C Work Phone: Start: 03-12-2022 Radiologic exam ches t 2 views Rica Erwin MD Work Phone: Start: 11-10-2019 Arthroscopy of knee [place] in [place] Comment on above: right History of repair of umbilical hernia Parth Pavon Laparoscopic cholecystectomy Parth Pavon Vasectomy Parth Pavon Plan of Treatment Date Care Activity Detail Author Start: 01-25-2026 PROSTATE CANCER SCREENING DISCUSSION PROSTATE CANCER SCREENING DISCUSSION [facility] Start: 05-24-2023 End: 05-24-2023 Patient encounter procedure 05/24/2023 3:45 PM EST Office Visit [facility] [address] [address] Tommy Barton MD [address] [facility], [address] [place] [address] [facility] Start: 04-02-2023 BP CONTROLLED (<130/80) BP CONTROLLED (<130/80) [facility] in Start: 01-11-2023 DIABETES SCREEN DIABETES SCREEN [facility] Start: 01-01-2023 Influenza vaccination Influenza Vaccine (#1) [facility] Start: 05-03-2022 DEPRESSION ASSESSMENT DEPRESSION ASSESSMENT [facility] Start: 03-12-2022 End: 05-12-2022 Comprehensive metabolic 2000 panel - Serum or Plasma [facility] Work Phone: Comment on above: Expected: 03/12/2022 , Expires: 05/12/2022 Start: 03-12-2022 End: 05-12-2022 Magnesium [Mass/volume] in Serum or Plasma [facility] Work Phone: Comment on above: Expected: 03/12/2022 , Expires: 05/12/2022 Start: 03-12-2022 End: 05-12-2022 Natriuretic peptide.B prohormone N-Terminal [Mass/volume] in Serum or Plasma [facility] Work Phone: Comment on above: Expected: 03/12/2022 , Expires: 05/12/2022 Start: 01-31-2022 Influenza vaccination Influenza Vacc ine (#1) [facility] Start: 05-03-2021 DEPRESSION ASSESSMENT DEPRESSION ASS ESSMENT [facility] Start: 11-28-2020 COVID-19 VACCINE (3 - Booster for Pfizer series) COVID-19 VACCINE (3 - Booster for Pfizer series) [facility] Start: 11-28-2020 COVID-19 Vaccine (3 - Pfizer series) COVID-19 Vaccine (3 - Pfizer series) [facility] Start: 2013 Measurement of occul t blood in single stool specimen FIT [facility] Start: 2013 Screening for malign ant neoplasm of colon CRC Screening [facility] Start: 2013 Shingles (RZV) Vacci ne (1 of 2) Shingles (RZV) Vaccine (1 of 2) [facility] Start: 2013 SHINGRIX VACCINE (1 of 2) SHINGRIX VACCINE (1 of 2) [facility] Start: 2013 Zoster Vaccines (1 o f 2) Zoster Vaccines (1 of 2) [facility] Start: 2008 COLOGUARD (FIT-DNA) COLOGUARD (FIT-D NA) [facility] Start: 2008 Colonoscopy COLONOSCOPY [facility] Start: 2008 COLORECTAL CANCER SCREENING COLORECTAL CANCER SCREENING [facility] Start: [address] COLONOGRAPHY [place] Start: 2008 FECAL OCCULT BLOOD FECAL OCCULT BLOO D [facility] Start: 2008 [facility] Start: 1998 Lipid panel [facility] Start: 1998 LIPID SCREEN LIPID SCREEN [facility] Start: 1985 DTaP/Tdap/Td Vaccine s (1 - Tdap) DTaP/Tdap/Td Vaccines (1 - Tdap) [facility] Start: 1982 Urine microalbumin profile DTAP,TDAP,TD (1 - Tdap) [facility] Start: 1981 ANNUAL PCP TEAM MACHINE TOOL TECHNOLOGY INSTRUCTOR LAY DISEASE VISIT ANNUAL PCP TEAM CHRONIC DISEASE VISIT [facility] Start: 1981 BP CONTROLLED (<130/80) BP CONTROLLE D (<130/80) [facility] Start: 1981 Hepatitis B surface antibody level LDL CHOLESTEROL [facility] Start: 1981 HEPATITIS C SCREENING HEPATITIS C SC REENING [facility] Start: 1981 [facility]: 1981 HIV SCREENING HIV SCREENING [facility] Start: 1981 Tetanus + diphtheria + acellular pertussis vaccine (product) Tdap Booster [facility] Start: 1978 HIV screening HIV Test [facility] Start: 1973 3 comp foot exam completed DIABETIC FOOT EXAM [facility] Start: 1973 Hepatitis B screening URINE ALBUMIN:CREATININE RATIO [facility] Start: 1973 Hepatitis C antibody , confirmatory test DILATED RETINAL EXAM [facility] Start: 1969 PNEUMOCOCCAL (1 - PCV) PNEUMOCOCCAL (1 - PCV) [facility] Start: 1968 Hemoglobin A1c/Hemoglobin.total in Blood HBA1C [facility] Start: 1964 MMR Vaccines (1 of 1 - Standard series) MMR Vaccines (1 of 1 - Standard series) [facility] Start: 1963 COVID-19 Vaccine (#1) COVID-19 Vacci ne (#1) [facility] Start: 1963 HEPATITIS B (1 of 3 - 3-dose series) HEPATITIS B (1 of 3 - 3-dose series) [facility] Start: 1963 Hepatitis B Vaccines (1 of 3 - 3-dose series) Hepatitis B Vaccines (1 of 3 - 3-dose series) [facility] Start: 1963 HIV screening HIV Screening [facility] Start: 1963 Lipid panel Lipid Panel [facility] Start: 1963 Screening for malign ant neoplasm of colon [facility] Start: 1963 Yearly Adult Physical Yearly Adult P hysical [facility] End: 03-12-2023 ECG COMPLETE ECG COMPLETE ECG Routine Atrial flutter, unspecified type (HCC) 1 Occurrences starting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 is effective in reducing atrial fibrillation and improving symptoms and quality of life. Please continue to exercise, a recommended goal is 150 min/wk of moderate-intensityor 75 min/wk of vigorous- intensity aerobic exercise . You may chose how you break these minutes up during your week. - Eat balance meals with increase in vegetables. Also, focus on Fruits, whole grains, lean protein and portion control. - Consider sleep study - Well controlled blood sugars aide in atrial fibrillation reduction. Goal hemoglobin A1c of less than 7.0% is recommended. - Reduction in alcohol intake - Tobacco cessation - Controlled blood pressure can help with reducing atrial fibrillation episodes. Recommended BP goal is less than 130/ 80 - Continued to take all medications as prescribed and participate in routine follow up and health maintenance Dr. Oneida Bradley's Office To schedule an appointment please call -- [phone] Other questions or concerns please call his office at -- [phone] Fax#: [phone] [facility] History of Present illness Narrative* Emeli Ribeiro APRN.CNP - 04/02/2022 8:45 AM EST Images from the original note were not included. [facility] [facility] Department of Cardiovascular Medicine SECTION OF CARDIAC PACING and ELECTROPHYSIOLOGY OUTPATIENT VISIT DATE April 02, 2022 OUTPATIENT VISIT TYPE Established PRIMARY CARE PHYSICIAN: Jenny Muñoz MD [facility] [place] [address] CHIEF COMPLAINT: Atrial flutter hospital follow up HISTORY OF PRESENT ILLNESS: Mr. Parekh is a 56 year old male who presents for atrial flutter follow up s/p hospitalization and cardioversion. He is an new established patient of Dr. Bradley, last seen during hospital admission 03/12/22-03/17/22. He has a past medical history of HTN, hx DVT, RLS, hypothyroidism, and atrial flutter s/p DCCV ( onset 03/03/2022). He is maintained on apixaban and diltiazem. He presents today in sinus rhythm. He reports I feel fantastic; the best I've felt in while. He reports when in atrial flutter he was fatigued, SOB, and had activity intolerance. He purchased a fit-bit and uses in to help increase activity. He has also worked to modify diet, reducing sugar and reports he's had one beer since event. He endorses a flare in arthritic hip and knee pain since stopping NSAID. He notes an increase in swelling of BLE after two week supply of furosemide was completed. He does not report abnormal or unusual bleeding or bruising. He denies chest pain, shortness of breath, orthopnea, cough, palpitations, PND, lightheadedness or syncope. PAST CARDIAC HISTORY: PAST MEDICAL HISTORY Diagnosis Date Aortic dilatation ([facility]) Atrial flutter ([facility]) COVID-19 2019 pneumonia DVT (deep venous thrombosis) ([facility]) 2020 right deep femoral and posterior tibial/ Xarelto x 1 month Hypothyroid Lymphedema Restless leg syndrome Venous insufficiency PAST SURGICAL HISTORY Procedure Laterality Date ARTHROSCOPY KNEE; W/ FIXATION right knee, meniscus repair ENDOVENOUS RF ABLATION SAPHENOUS VEIN BLE EVLA Apr 2019 LAPAROSCOPIC CHOLECYSTECTOMY SOCIAL HISTORY Social History Tobacco Use Smoking status: Never Smokeless tobacco: Never Tobacco comments: 2 cigars per year Vaping Use Vaping Use: Never used Substance Use Topics Alcohol use: Yes Comment: occasionally Drug use: Never FAMILY HISTORY Problem Relation Age of Onset other (Atrial Fibrillation) Mother 79 Ischemic Heart Disease Father [place] at age 38 other (ALS) Father Heart Attack Paternal Grandfather fatal [place] at age 61 Heart Attack Brother 57 PCI x 2 other (Lymphedema) Brother No Known Problems Brother No Known Problems Son No Known Problems Son ALLERGIES: ALLERGIES No Known Allergies MEDICATIONS: Current Outpatient Medications Medication Sig furosemide (LASIX) 20 mg tablet Take 1 tablet by mouth once daily. apixaban (ELIQUIS) 5 mg tab(s) Take 5 mg by mouth twice daily. dilTIAZem CD (CARDIZEM CD, CARTIA XT) 300 mg 24 hr capsule Take 300 mg by mouth once daily. levothyroxine (SYNTHROID) 100 mcg tablet Take 100 mcg by mouth once daily. pramipexole (MIRAPEX) 1 mg tablet Take 1 mg by mouth daily at bedtime. perflutren lipid microspheres (DEFINITY) 1.1 mg/mL injection (to be provided with echo procedure) Inject 1.3 mL intravenously as needed for up to 1 dose. Instructions Administration Instructions: If no IV access, insert saline lock prior to administering contrast. Discontinue saline lock post exam.If patient has central line or IVAD, may access for administration according to line specific nursing protocol. Once exam is complete, flush line and de-access per line specific nursing protocol. Diluted IV Bolus: Dilute 1.3 ml of Definity with 8.7 ml of preservative-free saline No current facility-administered medications for this visit. REVIEW OF SYSTEMS: General, constitutional: Weight loss or gain- No, Fever or chills-No, Weakness- No, Trouble sleeping-No. Head, Eyes, Ears, Mouth: Headache, head injury-No, Glasses or contact lenses-No, Pain-No, Impaired vision-No, Decreased hearing-No, Ringing in ears-No, Nose bleeds-No, Dental difficulties-No, Bleeding gums-No, Dentures-No. Neck: Swelling-No, Pain-No, Stiffness-No. Respiratory: Cough-No, Spitting up blood-No, Shortness of breath-No, Wheezing or asthma-No. Musculoskeletal: Muscle or joint pain or stiffness-Yes, Joint swelling- No Gastrointestinal: Difficulty swallowing-No, Heartburn-No, Change in bowel habits-No, Blood in stool, Dark black stools-No. Neurological/Psychiatric: Weakness, paralysis-No, Numbness-No, Tingling-No, Tremor-No, Nervousness or anxiety-No, Depressed mood-No, Memory loss-No. Skin: Rash-No, Itching-No. Hematological: Easy bruising-No, Easy bleeding-No. Endocrine: Heat or cold intolerance-No, Excessive sweating-No, Frequent urination-No, Frequent thirst-No. PHYSICAL EXAMINATION: BP 120/62 (BP Site: Left Arm, BP Position: Sitting, BP Cuff Size: Regular Adult) Pulse 78 Ht 177.8 cm (5' 10 ) Wt 129.9 kg (286 lb 4.8 oz) BMI 41.08 kg/m General: Well appearing, in no acute distress, speaking in complete sentences. Skin: No clubbing, no cyanosis. Eyes: Extra ocular movements intact, Normal conjunctiva, Non-icteric sclerae Oropharynx: Teeth in good repair. Neck: No jugular venous distention, no carotid bruits, carotids have a normal upstroke, no palpablethyromegaly. Lungs: Clear to auscultation bilaterally, no wheezing or rhonchi. Heart: Regular rhythm, PMI not displaced, S1, S2 normal, no S3, no S4, no heaves, no rub and no murmur. Abdomen: Soft, nontender, bowel sounds normal, no palpable organomegaly, no bruits. obese Extremities: Grade 2/4 radial pulses, PT +1 BLE non pitting edema, peter hose in place Neuro: Oriented to person, place and time, alert, cooperative, gait coordinated. CARDIOVASCULAR MEDICINE TESTING: Electrocardiogram: Last CLAUS Result Conclusion ECHO TRANSESOPHAGEAL Collected: 03/16/2022 2:03 PM (Final result) Impression: CONCLUSIONS: - Exam indication: Sustained atrial fibrillation - The left ventricle is normal in size. Left ventricular systolic function is normal. EF = 55 5% (visual est.) - The right ventricle is normal in size. Right ventricular systolic function is normal. - The left atrial cavity is moderately dilated. - No LA thrombus identified. - The visualized aorta is dilated with a maximal dimension of 4.1 cm. - Small nonmobile calcification (0.5 x 0.6 cm) of RCC/NCC commisure likely consistent with degenerative valve disease/calcification. - There is no patent foramen ovale as detected by agitated saline contrast. - Exam was compared with the prior echocardiographic exam performed on 02/05/2020, stable aortic measurements, overall similar findings * * * Final * * * [facility]TE OSH 03/23/22 I have personally reviewed the Electrocardiogram, Laboratory Testing, and Echocardiogram. IMPRESSION: Mr. Parekh is a 56 year old male who presents for atrial flutter follow up s/p hospitalization and cardioversion. He is an new established patient of Dr. Bradley, last seen during hospital admission 03/12/22-03/17/22. He has a past medical history of hx DVT, RLS, hypothyroidism, and atrial flutter s/p DCCV ( on set 03/03/2022). He is maintained on apixaban and diltiazem Typical Atrial flutter - Onset 03/03/2022 in setting on ABX use for acute infection - S/P CLAUS & DCCV 03/16/22 - LVEF 55% mild LA dilation, dilated Aorta 4.1 cm ascending 4.0 cm ( atheroma mid arch) - TSH 1.840 ( 03/2022) - [id number] 4 ( Hx DVT,HTN, hx chf) - Maintained on apixaban and diltiazem 300 mg daily - RF modification discussed at length Sleep study Diet modification Increase activity HTN control Other Chronic Conditions HTN - Controlled on diltiazem 300 mg daily Hypothyroidism - on 100 mcg levothyroxine Hx DVT - Followed by local vascular medicine - Unknown etiology RLS - Maintained on pramipexole 1mg daily - Worsens with swelling Lymphedema - Furosemide reordered as pt reports effective with swelling - Continue 20 mg lasix daily - RF- low sodium diet fluid retention PLAN AND RECOMMENDATIONS: - Continue Apixaban therapy - Follow up in [address] Bradley or sooner if needed - Lasix prescription provided for BLE swelling - Sleep study scheduled for 04/10/22 - Discussed RF modification ( sleep study, HTN control, exercise, healthy diet intake) - Follow up with PCP for management of chronic conditions CONTACT INFORMATION: Emeli Ribeiro APRN.TANJA [facility] everywhere [facility] NoteHNO ID: [id number] Author: Ely Williamson APRN.CRNA Service: ? Author Type: Nurse Sample Selector Type: Anesthesia Procedure Notes Filed: 03/16/2022 2:48 PM Note Text: ANESTHESIOLOGY PROCEDURE NOTE Airway General Information Procedure Start Time/Medication Administration: 03/16/2022 2:40 PM Patient location during procedure: OR Timeout Performed Pre-procedure: timeout performed Consent Obtained: Yes Patient identity confirmed: arm band, care retail team member and patient Staffing PARTY PLAN SALES CONSULTANT: Ely Williamson APRN.PARTY PLAN SALES CONSULTANT Performed by: PARTY PLAN SALES CONSULTANT Indications and Patient Condition Indications for airway management: anesthesia Preoxygenated: yes anesthesia circuit Patient position: sniffing Method: modified rapid sequence Cricoid Pressure: Yes Manual In-Line Stabilization: No Difficult Mask: No Airway adjunct type: N/A. Final Airway Details Final airway type: endotracheal airway Final Endotracheal Airway: ETT Cuffed: yes Successful intubation technique: video laryngoscopy Devices used: Thompson SCI Endotracheal tube insertion site: oral Blade: Maylin Blade size: #3 ETT size (mm): 7.5 Measured from: lips Measurement (cm): 23 Placement verified by: capnometry Cormack-Lehane Classification: grade IIa - partial view of glottis Number of attempts at approach: 1 Airway trauma: atraumatic. Failed airway: no Unrecognized esophageal intubation: no Airway not difficult SIGNATURE: Ely Williamson APRN.CRNA PATIENT NAME: Clayton Parekh DATE: March 16, 2022 TIME: 2:47 PM CSN: [id number] NoteHNO ID: [id number] Author: FEROZ Aldrich Service: Cardiovascular Medicine Author Type: Physician Emergency Department Aide Type: Progress Notes Filed: 03/16/2022 4:51 PM Note Text: [facility] PROGRESS NOTE SERVICE DATE: 03/16/2022 PRIMARY SERVICE: I Electrophysiology HOSPITAL DAY: #4 INTERVAL HISTORY CLAUS with no MANUELITO thrombus Successful DCCV with jewish of sinus rhythm PHYSICAL EXAM BP 111/74 Pulse (!) 138 Temp 36.6 ?C (97.8 ?F) (Oral) Resp 16 Ht 177.8 cm (5' 10 ) Wt 132.5 kg (292 lb) SpO2 95% BMI 41.90 kg/m? Intake/Output Summary (Last 24 hours) at 03/16/2022 1323 Last data filed at 03/16/2022 1100 Gross per 24 hour Intake -- Output 1290 ml Net -1290 ml General Appearance: Well developed, no acute distress HEENT: PERRLA, good dentition Lungs: Unlabored, left basilar inspiratory wheeze Heart: Tachycardic, regular rhythm, no murmurs Vascular: Extremities well perfused Abdomen: Soft, non-tender, non-distended, normoactive bowel sounds Skin: Warm and dry, no rash Musculoskeletal: No deformities Neurologic/Psychiatric: Alert and oriented, appropriate affect, no gross focal neurologic deficits MEDICATIONS Current Facility-Administered Medications Medication Dose Route Frequency acetaminophen 650 mg tab(s) (TYLENOL) 650 mg ORAL q 4 H PRN docusate sodium 100 mg cap(s) (COLACE) 100 mg ORAL BID PRN NaCl 0.9% iv flush bag 20 mL INTRAVENOUS PRN sodium chloride 0.9 % (flush) 3-5 mL (BD POSIFLUSH) 3-5 mL INTRAVENOUS q 12 H dilTIAZem CD 300 mg cap(s) (CARDIZEM CD, CARTIA XT) 300 mg ORAL DAILY apixaban 5 mg tab(s) (ELIQUIS) 5 mg ORAL BID amoxicillin-clavulanic acid 875 mg tab(s) (AUGMENTIN) 875 mg ORAL BID levothyroxine 100 mcg tab(s) (SYNTHROID) 100 mcg ORAL DAILY ascorbic acid (vitamin C) 1,000 mg tab(s) (VITAMIN C) 1,000 mg ORAL DAILY pramipexole 1 mg tab(s) (MIRAPEX) 1 mg ORAL DAILY benzonatate 100 mg cap(s) (TESSALON PERLE) 100 mg ORAL TID albuterol 2.5 mg /3 mL (0.083 %) 2.5 mg (PROVENTIL) 2.5 mg INHALATION TID DATA: Diagnostic tests reviewed for today's visit: Most recent labs Most recent imaging- as noted below Most recent EKG Significant findings- as noted below TTE 03/04/22 (OSH): Interpretation Summary The left ventricular wall motion is normal. Mild concentric left ventricular hypertrophy. Ejection Fraction = 50-55%. The LV ejection fraction is low normal. The left atrium appears moderately dilated. Mild aortic root dilatation. The aortic root is 3.9 cm In atrial flutter throughout the study There is no comparison study available. CLAUS 03/16/22: CONCLUSIONS: - Exam indication: Sustained atrial fibrillation - The left ventricle is normal in size. Left ventricular systolic function is normal. EF = 55 ? 5% (visual est.) - The right ventricle is normal in size. Right ventricular systolic function is normal. - The left atrial cavity is moderately dilated. - No LA thrombus identified. - The visualized aorta is dilated with a maximal dimension of 4.1 cm. - Small nonmobile calcification (0.5 x 0.6 cm) of RCC/NCC commisure likely consistent with degenerative valve disease/calcification. - There is no patent foramen ovale as detected by agitated saline contrast. - Exam was compared with the prior echocardiographic exam performed on 02/05/2020, stable aortic measurements, overall similar findings PROCEDURES: Cardioversion 03/16/22: Summary Findings: The cardioversion was successful. 1. The presenting arrhythmia was atrial flutter. 2. Sinus rhythm and atrial tachycardia with a ventricular rate of 89 beats per minute was observed after the procedure. There were no intraprocedural complications or adverse events. LABS: BMP Latest Ref Rng AND Units 03/16/2022 03/15/2022 03/14/2022 GLUCOSE 74 - 99 mg/dL 109(H) 118(H) 118(H) BUN 9 - 24 mg/dL 14 14 16 CREATININE 0.73 - 1.22 mg/dL 0.96 0.92 0.95 SODIUM 136 - 144 mmol/L 137 139 140 POTASSIUM 3.7 - 5.1 mmol/L 4.3 4.9 4.3 CHLORIDE 97 - 105 mmol/L 100 102 103 CO2 22 - 30 mmol/L 24 26 24 ANION GAP 9 - 18 mmol/L 13 11 13 CALCIUM, TOTAL 8.5 - 10.2 mg/dL 9.5 9.6 9.3 eGFR >=60 mL/min/1.73m? 92 96 93 EGFR- - - - - EGFR-ALL OTHER RACES . - - - Magnesium (mg/dL) Date Value 03/16/2022 2.3 Estimated Creatinine Clearance: 114.8 mL/min (based on SCr of 0.96 mg/dL). Medication and Non-Pharmacologic VTE Prophylaxis/Anticoagulants Anticoagulant AND Antiplatelet Medications (From admission, onward) Start Dose Route Frequency Last Action Ordered Stop 03/12/22 2100 apixaban 5 mg tab(s) (ELIQUIS) 5 mg ORAL 2 TIMES DAILY Given, 03/16 1026 03/12/22 1749 -- VTE Prophylaxis: VTE prophylaxis appropriate ASSESSMENT AND PLAN HISTORY Clayton Parekh is an 56 year old male with the following medical history: New onset atrial fibrillation/atrial flutter - Diagnosed 03/03/22 - Started on cardizem and (more content not included)...[facility] NoteHNO ID: [id number] Author: FEROZ Aldrich Service: Cardiovascular Medicine Author Type: Physician Emergency Department Aide Type: Progress Notes Filed: 03/15/2022 12:58 PM Note Text: [facility]ICINE PROGRESS NOTE SERVICE DATE: 03/15/2022 PRIMARY SERVICE: [facility] Electrophysiology HOSPITAL DAY: #3 INTERVAL HISTORY Remains in atrial flutter rates 130s No acute events PHYSICAL EXAM BP 113/84 Pulse (!) 138 Temp 36.8 ?C (98.2 ?F) (Oral) Resp 18 Ht 177.8 cm (5' 10 ) Wt 134.6 kg (296 lb 11.2 oz) SpO2 96% BMI 42.57 kg/m? Intake/Output Summary (Last 24 hours) at 03/15/2022 1256 Last data filed at 03/15/2022 1100 Gross per 24 hour Intake 360 ml Output 2500 ml Net -2140 ml General Appearance: Well developed, no acute distress HEENT: PERRLA, good dentition Lungs: Unlabored, diminished breath sounds bilateral bases Heart: Tachycardic, regular rhythm, no murmurs Vascular: Extremities well perfused Abdomen: Soft, non-tender, non-distended, normoactive bowel sounds Skin: Warm and dry, no rash Musculoskeletal: No deformities Neurologic/Psychiatric: Alert and oriented, appropriate affect, no gross focal neurologic deficits MEDICATIONS Current Facility-Administered Medications Medication Dose Route Frequency acetaminophen 650 mg tab(s) (TYLENOL) 650 mg ORAL q 4 H PRN docusate sodium 100 mg cap(s) (COLACE) 100 mg ORAL BID PRN NaCl 0.9% iv flush bag 20 mL INTRAVENOUS PRN sodium chloride 0.9 % (flush) 3-5 mL (BD POSIFLUSH) 3-5 mL INTRAVENOUS q 12 H dilTIAZem CD 300 mg cap(s) (CARDIZEM CD, CARTIA XT) 300 mg ORAL DAILY apixaban 5 mg tab(s) (ELIQUIS) 5 mg ORAL BID amoxicillin-clavulanic acid 875 mg tab(s) (AUGMENTIN) 875 mg ORAL BID levothyroxine 100 mcg tab(s) (SYNTHROID) 100 mcg ORAL DAILY ascorbic acid (vitamin C) 1,000 mg tab(s) (VITAMIN C) 1,000 mg ORAL DAILY pramipexole 1 mg tab(s) (MIRAPEX) 1 mg ORAL DAILY benzonatate 100 mg cap(s) (TESSALON PERLE) 100 mg ORAL TID DATA: Diagnostic tests reviewed for today's visit: Most recent labs Most recent imaging- as noted below Most recent EKG Significant findings- as noted below TTE 03/04/22 (OSH): Interpretation Summary The left ventricular wall motion is normal. Mild concentric left ventricular hypertrophy. Ejection Fraction = 50-55%. The LV ejection fraction is low normal. The left atrium appears moderately dilated. Mild aortic root dilatation. The aortic root is 3.9 cm In atrial flutter throughout the study There is no comparison study available. EKG 03/12/22: LABS: BMP Latest Ref Rng AND Units 03/15/2022 03/14/2022 03/13/2022 GLUCOSE 74 - 99 mg/dL 118(H) 118(H) 106(H) BUN 9 - 24 mg/dL 14 16 15 CREATININE 0.73 - 1.22 mg/dL 0.92 0.95 0.89 SODIUM 136 - 144 mmol/L 139 140 139 POTASSIUM 3.7 - 5.1 mmol/L 4.9 4.3 4.5 CHLORIDE 97 - 105 mmol/L 102 103 103 CO2 22 - 30 mmol/L 26 24 26 ANION GAP 9 - 18 mmol/L 11 13 10 CALCIUM, TOTAL 8.5 - 10.2 mg/dL 9.6 9.3 9.2 eGFR >=60 mL/min/1.73m? 96 93 99 EGFR- - - - - EGFR-ALL OTHER RACES . - - - Magnesium (mg/dL) Date Value 03/15/2022 2.2 Estimated Creatinine Clearance: 120.8 mL/min (based on SCr of 0.92 mg/dL). Medication and Non-Pharmacologic VTE Prophylaxis/Anticoagulants Anticoagulant AND Antiplatelet Medications (From admission, onward) Start Dose Route Frequency Last Action Ordered Stop 03/12/222099 apixaban 5 mg tab(s) (ELIQUIS) 5 mg ORAL 2 TIMES DAILY Given, 03/15 95503/12/22 0862 -- VTE Prophylaxis: VTE prophylaxis appropriate ASSESSMENT AND PLAN HISTORY Clayton Parekh is an 56 year old male with the following medical history: New onset atrial fibrillation/atrial flutter - Diagnosed 03/03/22 - Started on cardizem and Eliquis - [id number] = 1 (DM) Mild aortic dilatation (3.9 cm aortic root) Hypothyroidism Probable PATRICK Type 2 diabetes mellitus Obesity History of RLE DVT (06/25/21) Lymphedema Chronic venous insufficiency Restless leg syndrome CC/REASON FOR ADMISSION: Clayton Parekh reports that he noticed an increase heart rate 03/03/22 per his pulse oximeter at home. He presented to the ED and was found to be in atrial flutter with HR 130-140's. He was initially tried on Toprol and it didn't control the heart rate. He was then placed on a Cardizem gtt and transferred to [facility]. He was started on Eliquis 03/04/22. He was discharged home and asked ot cone back in 3-4 weeks. His called the [facility] same day appointment and he was seen by Dr. Guillen 03/12/22. He was admitted from the clinic due to Atrial Flutter with RVR. He reports that he has had a chronic cough for a few weeks and was started on Augmentin 03/09/22. HOSPITAL COURSE: 03/12 - patient presented to the hospital from cardiology clinic appointment with Dr. Erwin. He was seen to establish care for new onset atrial flutter. EKG showed AFL 138 bpm; CXR revealing edema vs infla (more content not included)...[facility]11-12-2022 NoteHNO ID: [id number] Author: FEROZ Aldrich Service: Cardiovascular Medicine Author Type: Physician Emergency Department Aide Type: Progress Notes Filed: 03/14/2022 2:52 PM Note Text: [facility]ICINE PROGRESS NOTE SERVICE DATE: 03/14/2022 PRIMARY SERVICE: [facility] Electrophysiology HOSPITAL DAY: #2 INTERVAL HISTORY Remains in atrial flutter rates 130s No acute events PHYSICAL EXAM BP 122/76 Pulse (!) 140 Temp 37 ?C (98.6 ?F) (Oral) Resp 18 Ht 177.8 cm (5' 10 ) Wt 134.6 kg (296 lb 11.2 oz) SpO2 95% BMI 42.57 kg/m? Intake/Output Summary (Last 24 hours) at 03/14/2022 1437 Last data filed at 03/14/2022 1335 Gross per 24 hour Intake -- Output 1675 ml Net -1675 ml General Appearance: Well developed, no acute distress HEENT: PERRLA, good dentition Lungs: Unlabored, diminished breath sounds bilateral bases Heart: Tachycardic, regular rhythm, no murmurs Vascular: Extremities well perfused Abdomen: Soft, non-tender, non-distended, normoactive bowel sounds Skin: Warm and dry, no rash Musculoskeletal: No deformities Neurologic/Psychiatric: Alert and oriented, appropriate affect, no gross focal neurologic deficits MEDICATIONS Current Facility-Administered Medications Medication Dose Route Frequency acetaminophen 650 mg tab(s) (TYLENOL) 650 mg ORAL q 4 H PRN docusate sodium 100 mg cap(s) (COLACE) 100 mg ORAL BID PRN NaCl 0.9% iv flush bag 20 mL INTRAVENOUS PRN sodium chloride 0.9 % (flush) 3-5 mL (BD POSIFLUSH) 3-5 mL INTRAVENOUS q 12 H dilTIAZem CD 300 mg cap(s) (CARDIZEM CD, CARTIA XT) 300 mg ORAL DAILY apixaban 5 mg tab(s) (ELIQUIS) 5 mg ORAL BID amoxicillin-clavulanic acid 875 mg tab(s) (AUGMENTIN) 875 mg ORAL BID levothyroxine 100 mcg tab(s) (SYNTHROID) 100 mcg ORAL DAILY ascorbic acid (vitamin C) 1,000 mg tab(s) (VITAMIN C) 1,000 mg ORAL DAILY pramipexole 1 mg tab(s) (MIRAPEX) 1 mg ORAL DAILY benzonatate 100 mg cap(s) (TESSALON PERLE) 100 mg ORAL TID DATA: Diagnostic tests reviewed for today's visit: Most recent labs Most recent imaging- as noted below Most recent EKG Significant findings- as noted below TTE 03/04/22 (OSH): Interpretation Summary The left ventricular wall motion is normal. Mild concentric left ventricular hypertrophy. Ejection Fraction = 50-55%. The LV ejection fraction is low normal. The left atrium appears moderately dilated. Mild aortic root dilatation. The aortic root is 3.9 cm In atrial flutter throughout the study There is no comparison study available. Chest xray 03/12/22: RESULT: - Lines, tubes, and devices: None. - Lungs and pleura: Lungs are hypoinflated with partial atelectasis along the medial bases. Prominence of the lung markings bilaterally could be due to crowded vessels given the low lung volume. Underlying mild interstitial edema or inflammation cannot be entirely excluded. An azygos lobe is compatible with normal variation. There is mild anterior eventration of right hemidiaphragm. No pleural effusion or pneumothorax. - Cardiomediastinal silhouette: Heart is borderline in size. Thoracic aorta is mildly tortuous. - Bones and soft tissues: Degenerative changes are seen in the spine. EKG 03/12/22: TTE 03/15/20: CONCLUSIONS: - Technically difficult exam due to uncooperative patient. - Exam indication: CLAUS - Evaluation for cardiac mass - The left ventricle is normal in size. Left ventricular systolic function is normal. EF = 60 ? 5% (visual est.) - The right ventricle is normal in size. Right ventricular systolic function is normal. - The visualized aorta is borderline dilated with a maximal dimension of 3.8 cm. - Small nonmobile calcification (0.5 x 0.6 cm) of RCC. 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
== END 2023-04-08 06:53 | disposition home or self-care (01) ==
PROVIDERS: PCP Family Medicine; Visit Provider Family Medicine
DX: Z00.00 Encounter for general adult medical examination without abnormal findings (principal)
CPT/HCPCS: 36415; 80053; 80061; 83036; 83880; 84436; 84443; 84481; 85025; G0103

== ENCOUNTER 2023-06-07 15:22 | Outpatient (OUT) | payer BC, SELFPAY ==
--- OUTSIDE RECORDS SUMMARY | 2023-06-07 15:37 | XMS_ITS | CCD ---
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 at 15:47 Normal [facility] VC CONSULT FOLLOWUPon 2021 VC CONSULT FOLLOWUP Patient: OANH PAREKH Exam Date: 06/25/2021 : 1965 Gender:M Ordering : DR ROSARIO GLEASON M.D. Admission #: [id number] Family : Order #: [id number] CLICK HERE TO VIEW EXAM RADIOLOGY REPORT [...] day for 21 days Dictated by: Keila Ford M.D. on 06/25/2021 at 16:52 Approved by: Keila Ford M.D. on 06/25/2021 at 16:55 Normal [facility] VC EXT VENOUS RT LIMITEDon 0 06-25-2021 VC EXT VENOUS RT LIMITED Patient: CLAYTON PAREKH Exam Date: 06/25/2021 : 1965 Gender:M Ordering : DR ROSARIO GLEASON M.D. Admission #: [id number] Family : Order #: [id number] CLICK HERE TO VIEW EXAM RADIOLOGY REPORT [...] the posterior tibial veins. Dictated by: Keila Ford M.D. on 06/25/2021 at 15:38 Approved by: Keila Ford M.D. on 06/25/2021 at 16:52 Normal [facility] CULTURE SPUTUMon 05-14-2021 CULTURE SPUTUM Isolate 1 Evelyn albicans Growth of Normal [facility] Comment on above: Performed By: #### S PUTCX #### [facility] [address] [place] [address] Dr. Cheyenne Willard XR CHEST 2 Von [...] by: ROSARIO HIGUERA Date: 2021-05-11 17:17 Normal [facility] CTA ABD/PELV W IVCONon 02-07 CTA ABD/PELV W IVCON * * *Final Report* * * DATE OF EXAM: Feb 08 2020 1:32PM [facility] 0134 - CTA ABD/PELV W IVCON / [...] fluid. Diverticular disease of the large bowel. Appendicolith/fecalit h noted. Visualized bony structures are unremarkable. IMPRESSION: Patent mesenteric and systemic veins of the abdomen and pelvis. Grossly patent arterial vasculature of the abdomen and pelvis. Enterprise Infrastructure Architect[facility] Transcribe Date/Time: Feb 08 2020 2:06P Dictated by : SUSAN YUAN MD This examination was interpreted and the report reviewed and electronically signed by: SUSAN YUAN MD on Feb 08 2020 3:26PM EST [id number] N [facility] PROGRESSon 02-08-2020 PROGRESS HNO ID: [id number] Author: MCKENZIE Sevilla (Ct) Service: Radiology Author Type: Side Splitter Type: Progress Notes Filed: 02/08/2020 1:35 PM [...] MCKENZIE Sevilla February 08, 2020 1:34 PM [facility] Vital Signs Date Time Vital Sign Value Performing Clinician Facility 05-24-2023 15:52-0500 Body height 177.8 cm Cayden Avalos MD Work Phone: [facility] 05-24-2023 15:52-0500 Body mass index (BMI) [Ratio] 41.61 kg/m2 Cayden Avalos MD Work Phone: [facility] 05-24-2023 15:52-0500 Body weight 131.54 kg Cayden Avalos MD Work Phone: [facility] 04-28-2023 15:52-0500 Blood Pressure Location Callum GLEZ [facility] [place] 04-28-2023 15:52-0500 Diastolic blood pressure 86 mm[Hg] Callum GLEZ [facility] [place] 04-28-2023 15:52-0500 Heart rate 72 /min Callum GLEZ [facility] [place] 04-28-2023 15:52-0500 Respiratory rate 16 /min Callum GLEZ [facility] [place] 04-28-2023 15:52-0500 Systolic blood pressure 132 mm[Hg] Callum GLEZ [facility] [place] 05-29-2022 12:41-0500 Diastolic blood pressure 90 mm[Hg] Parth Pavon [facility] 05-29-2022 12:41-0500 Heart rate 55 /min Parth Pavon [facility] 05-29-2022 12:41-0500 Mean blood pressure 107 mm[Hg] Parht Librado [facility] 05-29-2022 12:41-0500 Respiratory rate 16 /min Parth Librado [facility] 05-29-2022 12:41-0500 SaO2% (BldA) [Mass fraction] 98 % Parth Librado [facility] 05-29-2022 12:41-0500 Systolic blood pressure 142 mm[Hg] Parth Librado [facility] 05-29-2022 11:30-0500 Diastolic blood pressure 83 mm[Hg] Parth Librado [facility] 05-29-2022 11:30-0500 Heart rate 62 /min Parth Librado [facility] 05-29-2022 11:30-0500 Mean blood pressure 96 mm[Hg] Parth Librado [facility] 05-29-2022 11:30-0500 Respiratory rate 18 /min Parth Lbirado [facility] 05-29-2022 11:30-0500 SaO2% (BldA) [Mass fraction] 94 % Parth Librado [facility] 05-29-2022 11:30-0500 Systolic blood pressure 123 mm[Hg] Parth Librado [facility] 05-29-2022 10:54-0500 Body temperature 98.6 [degF] Parth Pavon [facility] 05-29-2022 10:54-0500 Diastolic blood pressure 78 mm[Hg] Parth Pavon [facility] 05-29-2022 10:54-0500 Heart rate 76 /min Parth Pavon [facility] 05-29-2022 10:54-0500 Respiratory rate 16 /min Parth Pavon [facility] 05-29-2022 10:54-0500 SaO2% (BldA) [Mass fraction] 95 % Parth Pavon [facility] 05-29-2022 10:54-0500 Systolic blood pressure 121 mm[Hg] Parth Pavon [facility] 05-29-2022 10:39-0500 Body temperature 98.06 [degF] Parth Pavon [facility] 05-29-2022 10:39-0500 Heart rate 74 /min Parth Pavon [facility] 04-02-2022 09:11-0500 Body height 177.8 cm Monica Cano ROCKET ENGINE COMPONENT MECHANIC.COMPANY LAUNDRY WORKER Work Phone: [facility] 04-02-2022 09:11-0500 Body weight 129.87 kg Monica Cano ROCKET ENGINE COMPONENT MECHANIC.COMPANY LAUNDRY WORKER Work Phone: [facility] 04-02-2022 09:11-0500 Diastolic blood pressure 62 mm[Hg] Monica Cano ROCKET ENGINE COMPONENT MECHANIC.COMPANY LAUNDRY WORKER Work Phone: [facility] 04-02-2022 09:11-0500 Heart rate 78 /min Monica Cano ROCKET ENGINE COMPONENT MECHANIC.COMPANY LAUNDRY WORKER Work Phone: [facility] 04-02-2022 09:11-0500 Systolic blood pressure 120 mm[Hg] Monica Cano ROCKET ENGINE COMPONENT MECHANIC.COMPANY LAUNDRY WORKER Work Phone: [facility] 03-12-2022 08:43-0500 Diastolic blood pressure 83 mm[Hg] Hector Erwin MD Work Phone: [facility] 03-12-2022 08:43-0500 Heart rate 139 /min Hector Erwin MD Work Phone: [facility] 03-12-2022 08:43-0500 Respiratory rate 20 /min Hector Erwin MD Work Phone: [facility] 03-12-2022 08:43-0500 SaO2% (BldA) [Mass fraction] 97 % Hector Erwin MD Work Phone: [facility] 03-12-2022 08:43-0500 Systolic blood pressure 119 mm[Hg] Hector Erwin MD Work Phone: [facility] 03-12-2022 08:39-0500 Body height 177.8 cm Hector Erwin MD Work Phone: [facility] 03-12-2022 08:39-0500 Body weight 133.36 kg Hector Erwin MD Work Phone: [facility] Encounters Encounter Date Encounter Type Care Provider Facility Start: 05-24-2023 End: 05-25-2023 ambulatory [facility] Start: 05-24-2023 End: 05-24-2023 Office outpatient visit 25 minutes Cayden Avalos MD Work Phone: [facility] Comment on above: Left knee pain, unsp ecified chronicity (Primary Dx); Primary osteoarthritis of both knees Start: 04-28-2023 End: 04-29-2023 ambulatory Callum GLEZ Facility:[facility] Start: 04-28-2023 End: 04-28-2023 Patient encounter procedure Callum GLEZ General Surgery [facility] Start: 04-19-2023 ambulatory Parth Pavon Facility:[facility] Start: 03-22-2023 End: 03-23-2023 ambulatory [facility] Start: 03-22-2023 End: 03-22-2023 Office outpatient new 45 minutes Cayden Avalos MD Work Phone: [facility] Comment on above: Primary osteoarthrit is of both knees (Primary Dx); Left knee pain, unspecified chronicity Start: 07-03-2022 Refill Oneida mendieta MD Work Phone: Cardiology Comment on above: Refill Request Start: 05-29-2022 End: 06-02-2022 ambulatory UNKNOWN PROVIDER Facility:[facility] Start: 05-29-2022 End: 05-29-2022 Emergency department patient visit Parth Pavon Facility:[facility] Start: 05-29-2022 End: 05-29-2022 ambulatory Et3 Resource [facility] Start: 05-29-2022 End: 05-29-2022 Emergency department patient visit Parth Pavon [facility] Comment on above: Arrived Start: 04-07-2022 End: 04-08-[address] JENNY MUÑOZ Facility: Start: 04-02-2022 End: 04-02-2022 Patient encounter procedure Monica Cano ROCKET ENGINE COMPONENT MECHANIC.COMPANY LAUNDRY WORKER Work Phone: Cardiology Comment on above: Typical atrial flutt er (HCC) (Primary Dx); Primary hypertension; Personal history of DVT (deep vein thrombosis); Lymphedema; Acquired hypothyroidism Start: 03-31-2022 Orders Only Monica Gage nd ROCKET ENGINE COMPONENT MECHANIC.COMPANY LAUNDRY WORKER Work Phone: Cardiology Comment on above: Atrial flutter, unsp ecified type (HCC) (Primary Dx) Start: 03-16-2022 End: 03-16-2022 Patient encounter procedure Ip Transesophageal Echo Cardiology Comment on above: Persistent atrial fi brillation (HCC) (Primary Dx) Start: 03-12-2022 End: 03-12-2022 Subsequent hospital visit by physician Xr Chest Main J1 Work Phone: Radiology Comment on above: Atrial flutter, unsp ecified type (HCC) [I48.92] Start: 03-12-2022 End: 03-12-2022 Patient encounter procedure Hector Eriwn MD Work Phone: Cardiology Comment on above: Atrial flutter, unsp ecified type (HCC) (Primary Dx); Acquired hypothyroidism; Family history of early CAD; Aortic dilatation (HCC); Shortness of breath; Acute cough Start: 03-06-[address] Jenny Hogan Facility:[id number] Start: 03-05-2022 ambulatory Jenny Francis ility:[facility] Start: 03-05-2022 End: 03-06-2022 [facility] Facility[facility] Start: 03-05-[address] Jenny Hogan Facility:[id number] Start: 03-04-2022 ambulatory Jenny Francis ility:[id number] Start: 07-16-2021 End: 07-17-[address] ROSARIO GLEASON Facility:[facility] Start: 06-25-2021 End: 06-26-[address] ROSARIO GLEASON Facility:[facility] Start: 05-14-2021 End: 05-14-[address] JENNY MUÑOZ Facility:[facility] Start: 05-11-2021 End: 05-12-[address] JENNY MUÑOZ Facility:[facility] Procedures Date Procedure Procedure Detail Performing Clinician Start: 03-22-2023 LARGE JOINT INJECTION/ARTHROCENTESIS CAYDEN AVALOS Start: 03-22-2023 XR KNEE 4+ VIEWS BILATERAL CAYDEN AVALOS Start: 03-22-2023 Arthrocentesis aspir &/inj major jt/bursa w/o us Blanka Ivey PA-C Work Phone: Start: 03-12-2022 Radiologic exam ches t 2 views Hector Erwin MD Work Phone: Start: 11-10-2019 Arthroscopy of knee Garrett Pavon Comment on above: right Cardioversion Callum GLEZ History of repair of umbilical hernia Parth Pavon Laparoscopic cholecystectomy Parth Pavon Vasectomy Parth Pavon Plan of Treatment Date Care Activity Detail Author Start: 01-25-2026 PROSTATE CANCER SCREENING DISCUSSION PROSTATE CANCER SCREENING DISCUSSION [facility] Start: 07-05-2023 End: 07-05-2023 Patient encounter procedure 07/05/2023 3:00 PM EST Office Visit [facility] [address] [place] [address], [place] [address] Cayden Avalos MD [address] [facility], [address] [place] [address] [facility] Start: 05-24-2023 End: 05-24-2023 Patient encounter procedure 05/24/2023 3:45 PM EST Office Visit [facility] [address] [place] [place] [address] Cayden Avalos MD [address] [facility], [address] [place] [address] [facility] Start: 04-02-2023 BP CONTROLLED (<130/80) BP CONTROLLE D (<130/80) [facility] Start: 01-11-2023 DIABETES SCREEN DIABETES SCREEN [facility] Start: 01-01-2023 Influenza vaccination Influenza Vacc ine (#1) [facility] Start: 05-03-2022 DEPRESSION ASSESSMENT DEPRESSION ASS ESSMENT [facility] Start: 03-12-2022 End: 05-12-2022 Comprehensive metabolic 2000 panel - Serum or Plasma [facility] Work Phone: Comment on above: Expected: 03/12/2022 , Expires: 05/12/2022 Start: 03-12-2022 End: 05-12-2022 Magnesium [Mass/volume] in Serum or Plasma [facility] Work Phone: Comment on above: Expected: 03/12/2022 , Expires: 05/12/2022 Start: 03-12-2022 End: 05-12-2022 Natriuretic peptide.B prohormone N-Terminal [Mass/volume] in Serum or Plasma [facility] Work Phone: Comment on above: Expected: 03/12/2022 , Expires: 05/12/2022 Start: 01-31-2022 Influenza vaccination Influenza Vacc ine (#1) [facility] Start: 05-03-2021 DEPRESSION ASSESSMENT DEPRESSION ASS ESSMENT [facility] Start: 11-28-2020 COVID-19 VACCINE (3 - Booster for Pfizer series) COVID-19 VACCINE (3 - Booster for Pfizer series) [facility] Start: 11-28-2020 COVID-19 Vaccine (3 - Pfizer series) COVID-19 Vaccine (3 - Pfizer series) [facility] Start: 2013 Measurement of occul t blood in single stool specimen FIT [facility] Start: 2013 Screening for malign ant neoplasm of colon CRC Screening [facility] Start: 2013 Shingles (RZV) Vacci ne (1 of 2) Shingles (RZV) Vaccine (1 of 2) [facility] Start: 2013 SHINGRIX VACCINE (1 of 2) SHINGRIX VACCINE (1 of 2) [facility] Start: 2013 Zoster Vaccines (1 o f 2) Zoster Vaccines (1 of 2) [facility] Start: 2008 COLOGUARD (FIT-DNA) COLOGUARD (FIT-D NA) [facility] Start: 2008 Colonoscopy COLONOSCOPY [facility] Start: 2008 COLORECTAL CANCER SCREENING COLORECTAL CANCER SCREENING [facility] Start: [address] COLONOGRAPHY [facility] Start: 2008 FECAL OCCULT BLOOD FECAL OCCULT BLOO D [facility] Start: 2008 [facility]OSCOPY [facility] Start: 1998 Lipid panel [facility] Start: 1998 LIPID SCREEN LIPID SCREEN [facility] Start: 1985 DTaP/Tdap/Td Vaccine s (1 - Tdap) DTaP/Tdap/Td Vaccines (1 - Tdap) [facility] Start: 1982 Urine microalbumin profile DTAP,TDAP,TD (1 - Tdap) [facility] Start: 1981 ANNUAL PCP TEAM AUDIT CLERK LAY DISEASE VISIT ANNUAL PCP TEAM CHRONIC DISEASE VISIT [facility] Start: 1981 BP CONTROLLED (<130/80) BP CONTROLLE D (<130/80) [facility] Start: 1981 Diabetes mellitus screening Diabetes Screening [facility] Start: 1981 Hepatitis B surface antibody level LDL CHOLESTEROL [facility] Start: 1981 HEPATITIS C SCREENING HEPATITIS C SC LINDARAUL [facility] Start: 1981 Hepatitis C screening [facility] Start: 1981 HIV SCREENING HIV SCREENING [facility] Start: 1981 Tetanus + diphtheria + acellular pertussis vaccine (product) Tdap Booster [facility] Start: 1978 HIV screening HIV Test [facility] Start: 1973 3 comp foot exam completed DIABETIC FOOT EXAM [facility] Start: 1973 Hepatitis B screening URINE AL BUMIN:CREATININE RATIO [facility] Start: 1973 Hepatitis C antibody , confirmatory test DILATED RETINAL EXAM [facility] Start: 1969 PNEUMOCOCCAL (1 - PCV) PNEUMOCOCCAL (1 - PCV) [facility] Start: 1968 Hemoglobin A1c/Hemoglobin.total in Blood HBA1C [facility] Start: 1964 MMR Vaccines (1 of 1 - Standard series) MMR Vaccines (1 of 1 - Standard series) [facility] Start: 1963 COVID-19 Vaccine (#1) COVID-19 Vacci ne (#1) [facility] Start: 1963 HEPATITIS B (1 of 3 - 3-dose series) HEPATITIS B (1 of 3 - 3-dose series) [facility] Start: 1963 Hepatitis B Vaccines (1 of 3 - 3-dose series) Hepatitis B Vaccines (1 of 3 - 3-dose series) [facility] Start: 1963 HIV screening HIV Screening [facility] Start: 1963 Lipid panel Lipid Panel [facility] Start: 1963 Screening for malign ant neoplasm of colon [facility] Start: 1963 Yearly Adult Physical Yearly Adult P hysical [facility] End: 03-12-2023 ECG COMPLETE ECG COMPLETE ECG Routine Atrial flutter, unspecified type (HCC) 1 Occurrences starting 03/12/2022 until 03/12/2023 [facility] Work Phone: Comment on above: 1 Occurrences starti ng 03/12/2022 until 03/12/2023 End: 03-31-2023 ECG COMPLETE ECG COMPLETE ECG Routine Atrial flutter, unspecified type (HCC) 1 Occurrences starting 03/31/2022 until 03/31/2023 [facility] Work Phone: Comment on above: 1 Occurrences starti ng 03/31/2022 until 03/31/2023 End: 04-11-2023 Radiologic exam chest 2 views XR CHEST 2V FRONTAL/LAT Radiology Routine Atrial flutter, unspecified type (HCC) 1 Occurrences starting 03/12/2022 until 04/11/2023 [facility] Work Phone: Comment on above: 1 Occurrences starti ng 03/12/2022 until 04/11/2023 Radiologic exam ches t 2 views XR CHEST 2V FRONTAL/LAT Radiology Routine Atrial flutter, unspecified type (HCC) 03/12/2022 11:01 AM EST [facility] Work Phone: [facility] Immunizations Immunization Date Immunization Notes Care Provider Fa frances 03-04-2022 influenza virus vaccine, unspecified formulation Cayden Avalos MD Work Phone: [facility] Work Phone: 10-03-2020 SARS-CoV-2 (COVID-19 ) mRNA BNT-162b2 vax Callum GLEZ [facility] 09-12-2020 SARS-CoV-2 (COVID-19 ) mRNA BNT-162b2 vax Callum NILL [facility] NEGATED: Highlighted row has not occurred!04-28-2023 influenza virus vaccine, unspecified formulation Callum GLEZ [facility] [place] Payers Date Payer Category Payer Unknown [id number] 2022 Unknown [id number] 2022 Self-pay 2018 Unknown [id number] 1965 Unknown [id number] 2.16. [id number] 1963 Unknown [id number] 2.16. [id number] 1963 Unknown [id number] 2.16. [id number] 1965 Unknown [id number] 2.16.84 0.1.945314.3.579.2.593 1965 Unknown [id number] 2.16.84 0.1.327531.3.579.2.593 1963 Unknown [id number] 2.16.84 0.1.659809.3.579.2.593 1963 Unknown [id number] 2.16.84 0.1.611444.3.579.2.593 1963 Unknown [id number] 2.16.84 0.1.547312.3.579.2.593 1963 Unknown [id number] 2.16. 840.1.150385.3.579.2.732 1965 Unknown [id number] 2.16.8 40.1.690821.3.579.2.727 1963 Unknown [id number] 2.16.8 40.1.320177.3.579.2.727 1963 Unknown [id number] 2.16.84 0.1.828657.3.579.2.1246 1963 Unknown [id number] 2.16.84 0.1.296233.3.579.2.1246 1963 Unknown [id number] 2.16.84 [id number] 1961 Unknown [id number] Unknown [id number] Social History Date Type Detail Facility Start: 03-12-2022 End: 05-24-2023 Tobacco smoking status NHIS Never smoked tobacco [facility] Start: 03-12-2022 End: 05-24-2023 Tobacco use and exposure Smokeless tobacco non-user [facility] Start: 03-12-2022 End: 04-02-2022 Alcohol intake Current drinker of alcohol (finding) [facility] Start: 03-05-2020 History SDOH Alcohol Frequency [address] [facility] Start: 03-05-2020 History SDOH Alcohol Std Drinks [address] [facility] Start: 03-12-2022 Tobacco Comment 2 cigars per year Cl [facility] Start: 03-05-2020 Alcohol Comment 6-8 beers a week [facility] Start: 1965 Sex Assigned At Not on file [facility] Start: 03-02-2022 End: 05-24-2023 Exposure to SARS-CoV-2 (event) Not sure [facility] Start: 04-02-2022 Alcohol Comment occasionally [facility] Tobacco smoking status NHIS Tobacco smoking consumption unknown [facility] Tobacco smoking status No Smoking Status Entered [facility] Start: 05-24-2023 Sex Assigned At Male F [facility] Tobacco smoking status Never [facility] [place] Start: 05-24-2023 History of Social function [facility] Work Phone: Functional Status Date Assessment Result Facility 04-28-2023 Functional Status N/A [facility] [place] 05-29-2022 Functional Status N/A [facility] Clinical Notes 03-12-2022 to 05-24-2023 Cayden Avalos MD - 05/24/2023 3:45 PM Amarilis Ivey PA-C - 03/22/2023 3:30 PM ESTTelephone Encounter - Lala Loza - 07/03/2022 3:59 PM EST Note Date & Type Note Facility 05-24-2023 History of Present illness Narrative Images from the original note were not included. Chief Complaint Patient presents with Right Knee - Follow-up 1. Bilateral knee OA S/P- Cortisone inj 03/22/23 HPI Patient with known osteoarthritis of the knee who presents today for repeat evaluation. The patient notes improving knee pain. The patient notes improving mechanical symptoms. The patient has tried the following modalities, activity modifications, injections, oral anti-inflammatories. Patient since last injection feels much improved very happy with his progress. History reviewed. No pertinent past medical history. Medication Documentation Review Audit Reviewed by Laura Mcghee MA (Road Repairer) on 05/24/23 at 1553 Medication Order Taking? Sig Documenting Provider Last Dose Status No Medications to Display Not on File Social History Socioeconomic History Marital status: Spouse name: Not on file Number of children: Not on file Years of education: Not on file Highest education level: Not on file Occupational History Not on file Tobacco Use Smoking status: Never Smokeless tobacco: Never Substance and Sexual Activity Alcohol use: Not on file Drug use: Not on file Sexual activity: Not on file Other Topics Concern Not on file Social History Narrative Not on file Social Determinants of Health Financial Resource Strain: Not on file Food Insecurity: Not on file Transportation Needs: Not on file Physical Activity: Not on file Stress: Not on file Social Connections: Not on file Intimate Partner Violence: Not on file Housing Stability: Not on file History reviewed. No pertinent surgical history. Review of Systems GENERAL: Negative for malaise, significant weight loss, fever MUSCULOSKELETAL: see HPI NEURO: Negative Body mass index is 41.61 kg/m . Exam Left knee: Skin healthy and intact No gross swelling or ecchymosis Alignment: Neutral Effusion: Mild ROM: 10-1 10 Crepitance with range of motion No pain with internal rotation of the hip Tenderness to palpation: Medial and lateral joint lines No laxity to valgus stress No laxity to varus stress Negative Froy s test Negative posterior drawer test Mild pain with Richard s test Neurovascular exam normal distally 2+ DP pulse and good cap refill Imaging XR knee 4+ views bilateral Narrative: Interpreted By: Cayden Avalos III, STUDY: XR KNEE 4+ VIEWS BILATERAL; ; 03/22/2023 3:33 pm INDICATION: Signs/Symptoms:pain. COMPARISON: None. ACCESSION NUMBER(S): [id number] ORDERING CLINICIAN: CAYDEN AVALOS FINDINGS: Multiple weight-bearing views bilateral knees: Moderate to severe joint space narrowing particularly about the medial compartments of both knees. There is osteophytosis sclerosis consistent with primary knee arthritis. Impression: Bilateral [id number] primary knee arthritis MACRO: None Signed by: Cayden Avalos III 03/22/2023 4:29 PM Dictation workstation: [id number] Assessment Patient with known osteoarthritis of the side: bilateral knee Plan We reviewed an evidence-based approach to OA of the knee. We discussed past treatments as well options for future treatment. Discussed importance of low impact aerobic exercises Discussed importance of nutritious diet and weight loss to help offload the knee joint Patient elects to proceed with continued conservative treatment Will give patient prescription for Voltaren We discussed the use of nonsteroidal anti-inflammatory drugs as part of a treatment plan. We discussed that these may result in GI upset and/or bleeding. Any stomach pain or dark hard stools would be reason to discontinue use. We discussed that when used over the long-term these medications can result in altered renal or hepatic function, and that routine use beyond 3 months requires follow-up with their primary provider for monitoring. They expressed their understanding and agree with the plan. documented in this encounter [facility] Work Phone: 04-28-2023 Note Chief Complaint consultation for colonoscopy HPI Staff 58 year old male presents on consultation from Dr. Muñoz for screening colonoscopy. Denies abdominal or rectal pain. No rectal bleeding or change in bowel habits. Denies nausea or vomiting. No unexplained weight loss. No known family history of colon cancer. Patient on Eliquis- history of atrial flutter and DVT.. History of Present Illness 58 yo male with h/o atrial flutter, LE DVT, on Eliquis, PATRICK, referred for colorectal screening; denies change in bms or blood in stools; no abdominal complaints; denies asa or NSAID use, no SBE prophylaxis; abdominal operations significant for cholecystectomy and umbilical hernia repair, no previous colonoscopy ; no fmhx of GI malignancy or IBD; no tobacco use. Review of Systems PHQ Score Initial Depression Screen Score: 0 SCORE ROS - Provider Constitutional: no fever, no sweats, no weight loss. Eyes: no glasses, no blurred vision, no visual loss. ENMT: no dentures, no hoarseness, no swallowing difficulties, no hearing loss, no ear infection(s), no nose bleeds. Cardiovascular: normal blood pressure, no chest pain, regular heartbeat, no heart murmur. Respiratory: no shortness of breath, no cough, no asthma, no wheezing. Gastrointestinal: no nausea, no vomiting, no diarrhea, no constipation, no blood in stool, no change in bowel habits, no abdominal pain, no hepatitis. Genitourinary: no kidney stones, no urine infection, no dysuria. Musculoskeletal: no pain, no weakness. Skin: no changing moles, no rash, no skin lumps. Neurologic: no seizures, no epilepsy, no headache. Psychiatric: no emotional or psychiatric problem. Heme/Lymph: no bleeding problems, no anemia, no blood clots, no transfusions. Allergy/Immunologic: no swollen lymph nodes/glands, no IV drug abuse. Other: Additional ROS info: Except as noted in the above Review of Systems and in the History of Present Illness, all other systems have been reviewed and are negative or noncontributory. . Physical Exam Vitals & Measurements HR: 72(Peripheral) RR: 16 BP: 132/86 HT: 70 in HT: 177.8 cm WT: 135.7 kg WT: 298.54 lb BMI: 42.93 HEENT: normal conjunctiva, sclera clear, no scleral icterus, EOM intact, PERRLA, oral mucosa moist without lesions. Neck: trachea midline, no mass, symmetric, no thyromegaly or nodules, no adenopathy Respiratory: lungs CTA, respirations non labored. Cardiovascular: regular rate and rhythm, no murmur, no pedal edema or varicosities. Gastrointestinal: obese, soft, non distended, no tenderness, no masses, no palpable hernias, diastasis recti yes, no hepatosplenomegaly; normal bs Lymphatic: no cervical adenopathy, no supraclavicular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
== END 2023-06-07 15:23 | disposition home or self-care (01) ==
LOC: PST 15:23
PROVIDERS: PCP Family Medicine; Visit Provider Surgery
DX: Z01.818 Encounter for other preprocedural examination (principal); Z12.11 Encounter for screening for malignant neoplasm of colon

== ENCOUNTER 2023-06-09 06:26 | Day surgery (SDC) | payer BC, SELFPAY ==
--- NOTE | 2023-06-09 | OP_ITS ---
OPERATION DATE: 06/09/2023 PREOPERATIVE DIAGNOSIS: Colorectal screening. POSTOPERATIVE DIAGNOSIS: Colon polyps x3. PROCEDURE: Colonoscopy to cecum. SURGEON: Callum Robert M.D. ANESTHESIA: Monitored anesthesia care. ESTIMATED BLOOD LOSS: Less than 1 mL. INDICATIONS AND CONSENT: Patient is a 58-year-old male presents for colorectal screening. Indications, risks, benefits, alternatives of proceeding with colonoscopy were explained extensively to the patient, including the risks of bleeding, colon perforation or anesthetic complications. All of his questions were answered. Informed consent was obtained. The patient is on Eliquis and stopped it two days prior to the procedure. PROCEDURE: Patient brought to the operating room, placed in the left lateral decubitus position. Monitored anesthesia care was provided. Rectal exam was performed which revealed no masses or blood. The scope was inserted into the anal canal. Under direct visualization was advanced. With the aid of abdominal compression, it was advanced to the cecum where cecal markings were clearly identified. There was noted to be a good prep. Upon withdrawal of the scope, mucosal surfaces were carefully examined. In the ascending colon, there was noted to be a 3 mm sessile polyp that was removed with cold snare with good hemostasis. In the descending colon, there were noted to be two adjacent 3 mm sessile polyps that were also removed with cold snare with good hemostasis. There were no other mass lesions or polyps. No inflammatory changes or ulcerations. No significant diverticulosis. The scope was retroflexed in the anal canal. There were prominent rectal veins, no significant hemorrhoidal disease. Scope was then withdrawn. Patient tolerated procedure well, was sent to recovery room in good condition. f/u colonoscopy likely in 5 years, but will depend on pathology results. CC: Shahzad Ventura M.D. SHARIF
--- OUTSIDE RECORDS SUMMARY | 2023-06-09 06:30 | XMS_ITS | CCD ---
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 distribution width (RBC) [Ratio] 14.4 % Normal 12.0-14.8 [facility] Comment on above: Performed By: #### C BC, PT, PTT, CMP, BNP, HS TROP #### [address] Hematocrit (Bld) [Volume fraction] 45.9 % Normal 38.8-50.0 [facility] Comment on above: Performed By: #### C BC, PT, PTT, CMP, BNP, HS TROP #### [place] [address] [place] Hemoglobin (Bld) [Mass/Vol] 14.9 g/dL Normal 13.0-17.0 [facility] Comment on above: Performed By: #### C BC, PT, PTT, CMP, BNP, HS TROP #### [address] Lymphocytes (Bld) [#/Vol] 1.1 10*3/uL Normal 1.00-4.8 [facility] Comment on above: Performed By: #### C BC, PT, PTT, CMP, BNP, HS TROP #### [address] Lymphocytes/100 WBC (Bld) 27.9 % Normal . [facility] Comment on above: Performed By: #### C BC, PT, PTT, CMP, BNP, HS TROP #### [address] MCH (RBC) [Entitic mass] 29.4 pg Normal 27.5-35.2 [facility] Comment on above: Performed By: #### C BC, PT, PTT, CMP, BNP, HS TROP #### [address] MCV (RBC) [Entitic vol] 90.7 fL Normal 83.5-101 [facility] Comment on above: Performed By: #### C BC, PT, PTT, CMP, BNP, HS TROP #### [address] Mean Corpuscular HGB Conc 32.4 g/dL Low 32.5-35.6 [facility] Comment on above: Performed By: #### C BC, PT, PTT, CMP, BNP, HS TROP #### [place] [address] [place] Monocytes (Bld) [#/Vol] 0.8 10*3/uL Normal 0.0-0.8 [facility] Comment on above: Performed By: #### C BC, PT, PTT, CMP, BNP, HS TROP #### [address] Monocytes/100 WBC (Bld) 20.2 % Normal . [facility] Comment on above: Performed By: #### C BC, PT, PTT, CMP, BNP, HS TROP #### [facility] [address] [place] [address] [place] Neutrophils (Bld) [#/Vol] 2.0 10*3/uL Normal 1.8-7.7 [facility] Comment on above: Performed By: #### C BC, PT, PTT, CMP, BNP, HS TROP #### [facility] [address] [place] [address] [place] Neutrophils/100 WBC (Bld) 48.7 % Normal . [facility] Comment on above: Performed By: #### C BC, PT, PTT, CMP, BNP, HS TROP #### [place] [address] [place] Nucleated RBC/100 WBC (Bld) [Ratio] 0.1 % Normal 0-0.5 [facility] Comment on above: Performed By: #### C BC, PT, PTT, CMP, BNP, HS TROP #### [place] [address] [place] Platelet mean volume (Bld) [Entitic vol] 7.7 fL Normal 6.6-10.1 [facility] Comment on above: Performed By: #### C BC, PT, PTT, CMP, BNP, HS TROP #### [place] [address] [place] Platelets (Bld) [#/Vol] 228 10*3/uL Normal 150-450 [facility] Comment on above: Performed By: #### C BC, PT, PTT, CMP, BNP, HS TROP #### [facility] [address] [place] [address] [place] RBC (Bld) [#/Vol] 5.06 10*6/uL Normal 3.90-5.60 [facility] Comment on above: Performed By: #### C BC, PT, PTT, CMP, BNP, HS TROP #### [place] [address] [place] WBC (Bld) [#/Vol] 4.0 10*3/uL Low 4.5-11.0 [facility] Comment on above: Performed By: #### C BC, PT, PTT, CMP, BNP, HS TROP #### [address] Comprehensive Metabolic Pane maynor 03-04-2022 Albumin [Mass/Vol] 3.7 g/dL Normal 3.2-5.5 [facility] Comment on above: Performed By: #### C BC, PT, PTT, CMP, BNP, HS TROP #### [address] Albumin/Globulin [Mass ratio] 1.3 {ratio} Normal [facility] Comment on above: Performed By: #### C BC, PT, PTT, CMP, BNP, HS TROP #### [address] ALP [Catalytic activity/Vol] 61 U/L Normal 32-92 [facility] Comment on above: Performed By: #### C BC, PT, PTT, CMP, BNP, HS TROP #### [address] ALT [Catalytic activity/Vol] 23 U/L Normal 10-60 [facility] Comment on above: Performed By: #### C BC, PT, PTT, CMP, BNP, HS TROP #### [address] Anion gap [Moles/Vol] 11.5 mmol/L Normal 6.0-15.0 [facility] Comment on above: Performed By: #### C BC, PT, PTT, CMP, BNP, HS TROP #### [address] AST [Catalytic activity/Vol] 23 U/L Normal 10-42 [facility] Comment on above: Performed By: #### C BC, PT, PTT, CMP, BNP, HS TROP #### [address] Bilirubin [Mass/Vol] 0.7 mg/dL Normal 0.3-1.2 [facility] Comment on above: Performed By: #### C BC, PT, PTT, CMP, BNP, HS TROP #### [address] Calcium [Mass/Vol] 9.0 mg/dL Normal 8.2-10.2 [facility] Comment on above: Performed By: #### C BC, PT, PTT, CMP, BNP, HS TROP #### [address] Chloride [Moles/Vol] 102 mmol/L Normal 95-114 [facility] Comment on above: Performed By: #### C BC, PT, PTT, CMP, BNP, HS TROP #### [address] CO2 [Moles/Vol] 30.1 mmol/L High 22.0-30.0 [facility] Comment on above: Performed By: #### C BC, PT, PTT, CMP, BNP, HS TROP #### [address] Creatinine [Mass/Vol] 0.83 mg/dL Normal 0.64-1.27 [facility] Comment on above: Performed By: #### C BC, PT, PTT, CMP, BNP, HS TROP #### [address] Creatinine Clr Calc Pharmacy 137.49 [facility] Comment on above: Result Comment: PERF ORMED BY: [place] [address] PATHOLOGIST DRY CELL BATTERY ASSEMBLER ORESTES SRINIVASAN M.D. Performed By: #### C BC, PT, PTT, CMP, BNP, HS TROP #### [address] Estimated GFR ( Karyna > 60 Normal [facility] Comment on above: Result Comment: GFR estimated reference range: According to KDOQI guidelines, <60 ml/min/1.73m2 is sufficient to diagnose a patient with chronic kidney disease. Performed By: #### C BC, PT, PTT, CMP, BNP, HS TROP #### [facility] [address] [place] [address] [place] Estimated GFR (Non- Am > 60 Normal [facility] Comment on above: Performed By: #### C BC, PT, PTT, CMP, BNP, HS TROP #### [facility] [address] [place] [address] [place] Globulin (S) [Mass/Vol] 2.9 g/dL Normal [facility] Comment on above: Performed By: #### C BC, PT, PTT, CMP, BNP, HS TROP #### [facility] [address] [place] [address] [place] Glucose [Mass/Vol] 121 mg/dL High 70-100 [facility] Comment on above: Result Comment: [place] Glucose Reference Range is dependent on time and content of last meal. Glucose of more than 200 mg/dL in a nonstressed, ambulatory subject supports the diagnosis of Diabetes Mellitus. ADA recommended reference range Performed By: #### C BC, PT, PTT, CMP, BNP, HS TROP #### [facility] [address] Potassium [Moles/Vol] 4.6 mmol/L Normal 3.5-5.1 [facility] Comment on above: Performed By: #### C BC, PT, PTT, CMP, BNP, HS TROP #### [facility] [address] [place] [id number] [place] Protein [Mass/Vol] 6.6 g/dL Normal 6.1-7.9 [facility] Comment on above: Performed By: #### C BC, PT, PTT, CMP, BNP, HS TROP #### [facility] [address] [place] [address] [place] Sodium [Moles/Vol] 139 mmol/L Normal 136-146 [facility] Comment on above: Performed By: #### C BC, PT, PTT, CMP, BNP, HS TROP #### [facility] [address] [place] [address] [place] Urea nitrogen [Mass/Vol] 12 mg/dL Normal 9-23 [facility] Comment on above: Performed By: #### C BC, PT, PTT, CMP, BNP, HS TROP #### [place] [address] [place] ECG 12 lead ECGon 03-04-2022 ECG 12 lead ECG [facility] [place] [address] Electrocardiograph Report Signed Patient: Clayton Parekh MR#: [id number] 4 : 1965 Acct:[id number] Age/Sex: 56 / M ADM Date: 03/05/22 Loc: 4 Room: [address] [place] [address] Type: DIS IN Attending Dr: Srikanth Whiteside [...] have occurred Confirmed by Catracho Syed DO ([id number]) on 03/04/2022 3:20:19 PM Referred By: Electronically Signed By:Catracho Syed DO Transcribed By: MUS Signed By Catracho Syed DO 2 1520 Normal [facility] ECH echo transthoracicon ECH echo transthoracic [facility] [place] [address] Echocardiogram Signed Patient: Clayton Parekh MR#: [id number] 4 : 1965 Acct:[id number] Age/Sex: 56 / M ADM Date: 03/05/22 Loc: 4 Room: [address] [place] [address] Type: DIS IN Attending Dr: Srikanth Whiteside DO Ordering Provider: Srikanth Whiteside DO Date of Service: 03/04/2206/24/1115 [facility] echo transthoracic: new finding of Atrial flutter [...] By: Jenny Hogan MD 03/04/22 1753 Normal [facility] Partial Thromboplastin Timeo n 03-04-2022 aPTT Coag (Bld) [Time] 27.2 s Normal 25.1-36.5 [facility] Comment on above: Result Comment: PERF ORMED BY: [place] [address] PATHOLOGIST DRY CELL BATTERY ASSEMBLER ORESTES SRINIVASAN M.D. Performed By: #### C BC, PT, PTT, CMP, BNP, HS TROP #### [address] Prothrombin Time INRon 03-04 INR Coag (PPP) [Relative time] 1.0 {INR} Normal [facility] Comment on above: Result Comment: INR [...] PT, PTT, CMP, BNP, HS TROP #### [facility] [address] [place] [id number] [facility] PT Coag (PPP) [Time] 11.7 s Normal 9.0-12.9 [facility] Comment on above: Performed By: #### C BC, PT, PTT, CMP, BNP, HS TROP #### [facility] [address] [place] [address] Thyroid Stimulating Hormoneo n 03-04-2022 TSH Qn 2.86 m[IU]/L Normal 0.45-5.33 [facility] Comment on above: Order Comment: ADD O N IS QNS.. Result Comment: PERF ORMED BY: [place] [address] PATHOLOGIST DRY CELL BATTERY ASSEMBLER ORESTES SRINIVASAN M.D. Performed By: #### T SH3 #### [address] Troponin I High Sensitivityo n 03-04-2022 Troponin I High Sensitivity 8 pg/mL Normal 0-20 [facility] Comment on above: Result Comment: PERF ORMED BY: [place] [address] PATHOLOGIST DRY CELL BATTERY ASSEMBLER ORESTES SRINIVASAN M.D. Performed By: #### C BC, PT, PTT, CMP, BNP, HS TROP #### [address] XR chest 1V portableon 03-04 XR chest 1V portable [facility] [place] [address] XRay Report Signed Patient: Clayton Parekh MR#: [id number] 4 : 1965 Acct:[id number] Age/Sex: 56 / M ADM Date: 03/04/22 Loc: ER Room: Type: [facility] ER Attending Dr: Copies to: Catracho [...] Clayton Nathan M.D.03/04/2022 9:23 AM Dictation Location: [place] [address] Transcribed By: [facility] 03/04/22922 Dictated By: Clayton Nathan II, MD 03/04/22922 Signed By: 03/04/22922 [facility] VC CONSULT FOLLOWUPon 2021 VC CONSULT FOLLOWUP Patient: OANH PAREKH Exam Date: 07/16/2021 : 1965 Gender:M Ordering : DR ROSARIO GLEASON M.D. Admission #: [id number] Family : Order #: [id number] CLICK HERE TO VIEW EXAM RADIOLOGY REPORT [...] is likely related to treatments at the [facility] lymphedema Clinic. No areas of erythema [...] Gleason MD on 07/16/2021 at 15:50 Normal [facility] VC EXT VENOUS RT LIMITEDon 0 07-16-2021 VC EXT VENOUS RT LIMITED Patient: CLAYTON PAREKH Exam Date: 07/16/2021 : 1965 Gender:M Ordering : DR ROSARIO GLEASON M.D. Admission #: [id number] Family : Order #: [id number] CLICK HERE TO VIEW EXAM RADIOLOGY REPORT [...] Gleason MD on 07/16/2021 at 15:47 Normal [facility] VC CONSULT FOLLOWUPon 2021 VC CONSULT FOLLOWUP Patient: OANH PAREKH Exam Date: 06/25/2021 : 1965 Gender:M Ordering : DR ROSARIO GLEASON M.D. Admission #: [id number] Family : Order #: [id number] CLICK HERE TO VIEW EXAM RADIOLOGY REPORT [...] Ford M.D. on 06/25/2021 at 16:55 Normal [facility] VC EXT VENOUS RT LIMITEDon 0 06-25-2021 VC EXT VENOUS RT LIMITED Patient: CLAYTON PAREKH Exam Date: 06/25/2021 : 1965 Gender:M Ordering : DR ROSARIO GLEASON M.D. Admission #: [id number] Family : Order #: [id number] CLICK HERE TO VIEW EXAM RADIOLOGY REPORT [...] Ford M.D. on 06/25/2021 at 16:52 Normal [facility] CULTURE SPUTUMon 05-14-2021 CULTURE SPUTUM Isolate 1 Evelyn albicans Growth of Normal [facility] Comment on above: Performed By: #### S PUTCX #### [facility] [address] [place] [address] Dr. Cheyenne Willard XR CHEST 2 Von [...] by: ROSARIO HIGUERA Date: 2021-05-11 17:17 Normal [facility] CTA ABD/PELV W IVCONon 02-07 CTA ABD/PELV W IVCON * * *Final Report* * * DATE OF EXAM: Feb 08 2020 1:32PM [facility] 0134 - CTA ABD/PELV W IVCON / [...] arterial vasculature of the abdomen and pelvis. Firm Administrator[facility] Transcribe Date/Time: Feb 08 2020 2:06P Dictated by : SUSAN YUAN MD This examination was interpreted and the report reviewed and electronically signed by: SUSAN YUAN MD on Feb 08 2020 3:26PM EST [id number] N [facility] PROGRESSon 02-08-2020 PROGRESS HNO ID: [id number] Author: MCKENZIE Sevilla (Ct) Service: Radiology Author Type: Internet Security Specialist Type: Progress Notes Filed: 02/08/2020 1:35 PM [...] MCKENZIE Sevilla February 08, 2020 1:34 PM [facility] Vital Signs Date Time Vital Sign Value Performing Clinician Facility 05-24-2023 15:52-0500 Body height 177.8 cm Cayden Avalos MD Work Phone: [facility] 05-24-2023 15:52-0500 Body mass index (BMI) [Ratio] 41.61 kg/m2 Cayden Avalos MD Work Phone: [facility] 05-24-2023 15:52-0500 Body weight 131.54 kg Cayden Avalos MD Work Phone: [facility] 04-28-2023 15:52-0500 Blood Pressure Location Callum GLEZ [facility] [place] 04-28-2023 15:52-0500 Diastolic blood pressure 86 mm[Hg] Callum GLEZ [facility] [place] 04-28-2023 15:52-0500 Heart rate 72 /min Callum GLEZ [facility] [place] 04-28-2023 15:52-0500 Respiratory rate 16 /min Callum GLEZ [facility] [place] 04-28-2023 15:52-0500 Systolic blood pressure 132 mm[Hg] Callum GLEZ [facility] [place] 05-29-2022 12:41-0500 Diastolic blood pressure 90 mm[Hg] Parth Pavon [facility] 05-29-2022 12:41-0500 Heart rate 55 /min Parth Pavon [facility] 05-29-2022 12:41-0500 Mean blood pressure 107 mm[Hg] Parth Librado [facility] 05-29-2022 12:41-0500 Respiratory rate 16 /min Parth Librado [facility] 05-29-2022 12:41-0500 SaO2% (BldA) [Mass fraction] 98 % Parth Librado [facility] 05-29-2022 12:41-0500 Systolic blood pressure 142 mm[Hg] Parth Librado [facility] 05-29-2022 11:30-0500 Diastolic blood pressure 83 mm[Hg] Parth Librado [facility] 05-29-2022 11:30-0500 Heart rate 62 /min Parth Librado [facility] 05-29-2022 11:30-0500 Mean blood pressure 96 mm[Hg] Parth Librado [facility] 05-29-2022 11:30-0500 Respiratory rate 18 /min Parth Librado [facility] 05-29-2022 11:30-0500 SaO2% (BldA) [Mass fraction] 94 % Parth Librado [facility] 05-29-2022 11:30-0500 Systolic blood pressure 123 mm[Hg] Parth Librado [facility] 05-29-2022 10:54-0500 Body temperature 98.6 [degF] Parth Pavon [facility] 05-29-2022 10:54-0500 Diastolic blood pressure 78 mm[Hg] Parth Pavon [facility] 05-29-2022 10:54-0500 Heart rate 76 /min Parth Pavon [facility] 05-29-2022 10:54-0500 Respiratory rate 16 /min Parth Pavon [facility] 05-29-2022 10:54-0500 SaO2% (BldA) [Mass fraction] 95 % Parth Pavon [facility] 05-29-2022 10:54-0500 Systolic blood pressure 121 mm[Hg] Parth Pavon [facility] 05-29-2022 10:39-0500 Body temperature 98.06 [degF] Parth Pavon [facility] 05-29-2022 10:39-0500 Heart rate 74 /min Parth Pavon [facility] 04-02-2022 09:11-0500 Body height 177.8 cm Monica Cano [employer]GS[employer] WEIGHER.FUNERAL SERVICE MANAGER Work Phone: [facility] 04-02-2022 09:11-0500 Body weight 129.87 kg Monica Cano [employer] WEIGHER.FUNERAL SERVICE MANAGER Work Phone: [facility] 04-02-2022 09:11-0500 Diastolic blood pressure 62 mm[Hg] Monica Cano [employer]GS[employer] WEIGHER.FUNERAL SERVICE MANAGER Work Phone: [facility] 04-02-2022 09:11-0500 Heart rate 78 /min Monica Cano [employer]GS[employer] WEIGHER.FUNERAL SERVICE MANAGER Work Phone: [facility] 04-02-2022 09:11-0500 Systolic blood pressure 120 mm[Hg] Monica Cano [employer]GSHEAD WEIGHER.FUNERAL SERVICE MANAGER Work Phone: [facility] 03-12-2022 08:43-0500 Diastolic blood pressure 83 mm[Hg] Hector Erwin MD Work Phone: [facility] 03-12-2022 08:43-0500 Heart rate 139 /min Hector Erwin MD Work Phone: [facility] 03-12-2022 08:43-0500 Respiratory rate 20 /min Hector Erwin MD Work Phone: [facility] 03-12-2022 08:43-0500 SaO2% (BldA) [Mass fraction] 97 % Hector Erwin MD Work Phone: [facility] 03-12-2022 08:43-0500 Systolic blood pressure 119 mm[Hg] Hector Erwin MD Work Phone: [facility] 03-12-2022 08:39-0500 Body height 177.8 cm Hector Erwin MD Work Phone: [facility] 03-12-2022 08:39-0500 Body weight 133.36 kg Hector Erwin MD Work Phone: [facility] Encounters Encounter Date Encounter Type Care Provider Facility Start: 05-24-2023 End: 05-25-[address] [facility] Start: 05-24-2023 End: 05-24-2023 Office outpatient visit 25 minutes Cayden Avalos MD Work Phone: [facility] Comment on above: Left knee pain, unsp ecified chronicity (Primary Dx); Primary osteoarthritis of both knees Start: 04-28-2023 End: 04-29-2023 ambulatory Callum GLEZ Facility:[facility] Start: 04-28-2023 End: 04-28-2023 Patient encounter procedure Callum GLEZ General Surgery [facility] Wal[facility] Start: 04-19-2023 ambulatory Parth Pavon Facility:[facility] Start: 03-22-2023 End: 03-23-[address] [facility] Start: 03-22-2023 End: 03-22-2023 Office outpatient new 45 minutes Cayden Avalos MD Work Phone: [facility] Comment on above: Primary osteoarthrit is of both knees (Primary Dx); Left knee pain, unspecified chronicity Start: 07-03-2022 Refill Oneida mendieta MD Work Phone: Cardiology Comment on above: Refill Request Start: 05-29-2022 End: 06-02-2022 ambulatory UNKNOWN PROVIDER Facility:[facility] Start: 05-29-2022 End: 05-29-2022 Emergency department patient visit aPrth Pavon Facility:[facility] Start: 05-29-2022 End: 05-29-2022 ambulatory Et[facility] Emergency Triage, Treat and Transport Start: 05-29-2022 End: 05-29-2022 Emergency department patient visit Parth Pavon [facility] Emergency Triage, Treat and Transport Comment on above: Arrived Start: 04-07-2022 End: 04-08-[address] JENNY MUÑOZ Facility: Start: 04-02-2022 End: 04-02-2022 Patient encounter procedure Monica Cano [employer].FUNERAL SERVICE MANAGER Work Phone: Cardiology Comment on above: Typical atrial flutt er (HCC) (Primary Dx); Primary hypertension; Personal history of DVT (deep vein thrombosis); Lymphedema; Acquired hypothyroidism Start: 03-31-2022 Orders Only Monica Gage nd [employer]HER.FUNERAL SERVICE MANAGER Work Phone: Cardiology Comment on above: Atrial [...] 03-12-2022 End: 03-12-2022 Patient encounter procedure Hector Erwin MD Work Phone: Cardiology Comment on above: Atrial flutter, unsp ecified type (HCC) (Primary Dx); Acquired hypothyroidism; Family history of early CAD; Aortic dilatation (HCC); Shortness of breath; Acute cough Start: 03-06-[address] Jenny Hogan Facility:[id number] Start: 03-05-2022 ambulatory Jenny Francis ility:[facility] Start: 03-05-2022 End: 03-06-2022 [facility] Start: 03-05-[address] Jenny Hogan [...] CANCER SCREENING DISCUSSION PROSTATE CANCER SCREENING DISCUSSION [facility] Start: 07-05-2023 End: 07-05-2023 Patient encounter procedure 07/05/2023 3:00 PM EST Office Visit [facility] [address] [place] [address], [place] [address] Cayden Avalos MD [address] [facility], [address] [place] [address] [facility] Start: 05-24-2023 End: 05-24-2023 Patient encounter procedure 05/24/2023 3:45 PM EST Office Visit [facility] [address] [place] [address] Cayden Avalos MD [address] [facility], [address] [place] [address] [facility] Start: 04-02-2023 BP CONTROLLED (<130/80) BP CONTROLLE D (<130/80) [facility] Start: 01-11-2023 DIABETES SCREEN DIABETES SCREEN [facility] Start: 01-01-2023 Influenza vaccination Influenza Vacc ine (#1) [facility] Start: 05-03-2022 DEPRESSION ASSESSMENT DEPRESSION ASS ESSMENT [facility] Start: 03-12-2022 End: 05-12-2022 Comprehensive metabolic [...] 01-31-2022 Influenza vaccination Influenza Vacc ine (#1) [facility] Start: 05-03-2021 DEPRESSION ASSESSMENT DEPRESSION ASS ESSMENT [facility] Start: 11-28-2020 COVID-19 VACCINE (3 - Booster for Pfizer series) COVID-19 VACCINE (3 - Booster for Pfizer series) [facility] Start: 11-28-2020 COVID-19 Vaccine (3 - Pfizer series) COVID-19 Vaccine (3 - Pfizer series) [facility] Start: 2013 Measurement of occul t blood in single stool specimen FIT [facility] Start: 2013 Screening for malign ant neoplasm of colon CRC Screening [facility] Start: 2013 Shingles (RZV) Vacci ne (1 of 2) Shingles (RZV) Vaccine (1 of 2) [facility] Start: 2013 SHINGRIX VACCINE (1 of 2) SHINGRIX VACCINE (1 of 2) [facility] Start: 2013 Zoster Vaccines (1 o f 2) Zoster Vaccines (1 of 2) [facility] Start: 2008 COLOGUARD (FIT-DNA) COLOGUARD (FIT-D NA) [facility] Start: 2008 Colonoscopy COLONOSCOPY [facility] Start: 2008 COLORECTAL CANCER SCREENING COLORECTAL CANCER SCREENING [facility] Start: [address] COLONOGRAPHY [facility] Start: 2008 FECAL OCCULT BLOOD FECAL OCCULT BLOO D [facility] Start: [address] [facility] Start: 1998 Lipid panel [facility] Start: 1998 LIPID SCREEN LIPID SCREEN [facility] Start: 1985 DTaP/Tdap/Td Vaccine s (1 - Tdap) DTaP/Tdap/Td Vaccines (1 - Tdap) [facility] Start: 1982 Urine microalbumin profile DTAP,TDAP,TD (1 - Tdap) [facility] Start: 1981 ANNUAL PCP TEAM ACUPRESSURE THERAPIST LAY DISEASE VISIT ANNUAL PCP TEAM CHRONIC DISEASE VISIT [facility] Start: 1981 BP CONTROLLED (<130/80) BP CONTROLLE D (<130/80) [facility] Start: 1981 Diabetes mellitus screening Diabetes Screening [facility] Start: 1981 Hepatitis B surface antibody level LDL CHOLESTEROL [facility] Start: 1981 HEPATITIS C SCREENING HEPATITIS C SC LINDARAUL [facility] Start: 1981 [facility] C [facility] Start: 1981 HIV SCREENING HIV SCREENING [facility] Start: 1981 Tetanus + diphtheria + acellular pertussis vaccine (product) Tdap Booster [facility] Start: 1978 HIV screening HIV Test [facility] Start: 1973 3 comp foot exam completed DIABETIC FOOT EXAM [facility] Start: 1973 Hepatitis B screening URINE AL BUMIN:CREATININE RATIO [facility] Start: 1973 Hepatitis C antibody , confirmatory test DILATED RETINAL EXAM [facility] Start: 1969 PNEUMOCOCCAL (1 - PCV) PNEUMOCOCCAL (1 - PCV) [facility] Start: 1968 Hemoglobin A1c/Hemoglobin.total in Blood HBA1C [facility] Start: 1964 MMR Vaccines (1 of 1 - Standard series) MMR Vaccines (1 of 1 - Standard series) [facility] Start: 1963 COVID-19 Vaccine (#1) COVID-19 Vacci ne (#1) [facility] Start: 1963 HEPATITIS B (1 of 3 - 3-dose series) HEPATITIS B (1 of 3 - 3-dose series) [facility] Start: 1963 Hepatitis B Vaccines (1 of 3 - 3-dose series) Hepatitis B Vaccines (1 of 3 - 3-dose series) [facility] Start: 1963 HIV screening HIV Screening [facility] Start: 1963 Lipid panel Lipid Panel [facility] Start: 1963 Screening for malign ant neoplasm of colon [facility] Start: 1963 Yearly Adult Physical Yearly Adult P hysical [facility] End: 03-12-2023 ECG COMPLETE ECG COMPLETE ECG [...] AM EST [facility] Work Phone: [facility] Immunizations Immunization Date Immunization Notes Care Provider Fa frances 03-04-2022 influenza virus vaccine, unspecified formulation Cayden Avalos MD Work Phone: [facility] Work Phone: 10-03-2020 SARS-CoV-2 (COVID-19 ) mRNA BNT-162b2 vax Callum GLEZ [facility] 09-12-2020 SARS-CoV-2 (COVID-19 ) mRNA BNT-162b2 vax Callum NILL [facility] NEGATED: Highlighted row has not occurred!04-28-2023 influenza virus vaccine, unspecified formulation Callum GLEZ [facility] [place] Payers Date Payer Category Payer Unknown [id number] 2022 Unknown [id number] 2022 Self-pay 2018 Unknown [id number] 1963 Unknown [id number] 2.16. [id number] 1963 Unknown [id number] 2.16. [id number] 1963 Unknown [id number] 2.16. 840.1.219506.3.579.2.356 1963 Unknown [id number] 2.16.84 0.1.764303.3.579.2.593 1963 Unknown [id number] 2.16.84 0.1.768738.3.579.2.593 1963 Unknown [id number] 2.16.84 0.1.539777.3.579.2.593 1963 Unknown [id number] 2.16.84 0.1.776479.3.579.2.593 1963 Unknown [id number] 2.16.84 0.1.452986.3.579.2.593 1963 Unknown [id number] 2.16. 840.1.440504.3.579.2.732 1963 Unknown [id number] 2.16.8 40.1.765854.3.579.2.727 1963 Unknown [id number] 2.16.8 40.1.751689.3.579.2.727 1963 Unknown [id number] 2.16.84 0.1.950331.3.579.2.1246 1963 Unknown [id number] 2.16.84 0.1.586818.3.579.2.1246 1963 Unknown [id number] 2.16.84 0.1.441116.3.579.2.1246 1959 Unknown [id number] Unknown [id number] 2.16.8 [id number] Social History Date Type Detail Facility Start: 03-12-2022 End: 05-24-2023 Tobacco smoking status NHIS Never smoked tobacco [facility] Start: 03-12-2022 End: 05-24-2023 Tobacco use and exposure Smokeless tobacco non-user [facility] Start: 03-12-2022 End: 04-02-2022 Alcohol intake Current drinker of alcohol (finding) [facility] Start: 03-05-2020 History SDOH Alcohol Frequency 4 [facility] Start: 03-05-2020 History SDOH Alcohol Std Drinks 1 [facility] Start: 03-12-2022 Tobacco Comment 2 cigars per year [facility] Start: 03-05-2020 Alcohol Comment 6-8 beers a week [facility] Start: 1965 Sex Assigned At Not on file C [facility] Start: 03-02-2022 End: 05-24-2023 Exposure to SARS-CoV-2 (event) Not sure [facility] Start: 04-02-2022 Alcohol Comment occasionally [facility] Tobacco smoking status NHIS Tobacco smoking consumption unknown [facility] Tobacco smoking status No Smoking Status Entered [facility] Start: 05-24-2023 Sex Assigned At Male F [facility] Tobacco smoking status Never [facility] [place] Start: 05-24-2023 History of Social function [facility] Work Phone: Functional Status Date Assessment Result Facility 04-28-2023 Functional Status N/A [facility] [place] 05-29-2022 Functional Status N/A [facility] Clinical Notes 03-12-2022 to 05-24-2023 Cayden Avalos [...] Review Audit Reviewed by Laura Mcghee MA (Email Deployment Specialist) on 05/24/23 at 1553 Medication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
[2023-06-09 07:00] VITALS: BP 128/89; PULSE 96; RESP 20; TEMP 36.6; O2SAT 95; BMI 43.3
[2023-06-09] MEDS: LACTATED RINGER'S SOLUTION 1,000 ML 50 ML IV (07:00)
[2023-06-09 08:12] VITALS: BP 124/77; PULSE 94; RESP 17; TEMP 36.5; O2SAT 95
[2023-06-09 08:26] VITALS: BP 105/84; PULSE 85; RESP 16; O2SAT 93
[2023-06-09 08:42] VITALS: BP 113/76; PULSE 92; RESP 16; O2SAT 94
== END 2023-06-09 08:42 | disposition home or self-care (01) ==
PROVIDERS: PCP Family Medicine; Visit Provider Surgery
PROC: (CPT 811; principal; 2023-06-09 07:30)
DX: Z12.11 Encounter for screening for malignant neoplasm of colon (principal); D12.2 Benign neoplasm of ascending colon; K63.5 Polyp of colon; Z79.01 Long term (current) use of anticoagulants; Z86.718 Personal history of other venous thrombosis and embolism; E66.01 Morbid (severe) obesity due to excess calories; Z68.41 Body mass index [BMI] 40.0-44.9, adult; I48.92 Unspecified atrial flutter; G47.30 Sleep apnea, unspecified; J30.2 Other seasonal allergic rhinitis; Z90.49 Acquired absence of other specified parts of digestive tract
CPT/HCPCS: 45385; 88305; J2704

== ENCOUNTER 2024-04-12 09:53 | Outpatient (RCR) | payer BC, SELFPAY | END 2024-05-02 14:55 | disposition home or self-care (01) | LOC: PT 09:53 | PROVIDERS: PCP Family Medicine | DX: M25.562 Pain in left knee (principal); Z96.652 Presence of left artificial knee joint | CPT/HCPCS: 97110; 97140; 97162 ==

== ENCOUNTER 2024-05-03 10:29 | Outpatient (RCR) | payer BC, SELFPAY | END 2024-05-04 14:24 | disposition home or self-care (01) | LOC: PT 10:29 | PROVIDERS: PCP Family Medicine; Visit Provider Student in an Organized Health Care Education/Training Program | DX: Z96.652 Presence of left artificial knee joint (principal) ==

== ENCOUNTER 2024-09-01 09:53 | Outpatient (RCR) | payer BC, SELFPAY | END 2024-09-19 08:19 | disposition home or self-care (01) | LOC: PT 09:53 | PROVIDERS: PCP Family Medicine; Visit Provider Student in an Organized Health Care Education/Training Program | DX: M25.561 Pain in right knee (principal); Z96.651 Presence of right artificial knee joint | CPT/HCPCS: 97110; 97161; 97530 ==